=== PATIENT | male | born 1945 | race African-American/Black ===

== ENCOUNTER 2017-06-05 12:25 | Inpatient (IN) | payer MEDICARE ==
[2017-06-05 13:09] LABS: Actual Bicarbonate (HCO3a) 21.2 mEq/L (22-26); Base Excess (BEa) -1.7 mEq/L (0 (+/-) 2.5); CO2 Tension 30.5 mmHg (35.0-45.0); Calcium, Ionized 1.2 mmol/L (1.12-1.30); Hematocrit-ABG 44.6 % (42.0-52.0); Hemoglobin (Hb) 12.4 g/dL (14.0-18.0); O2 Tension (PaO2) 103.3 mmHg (80.0-100.0); pH, Arterial 7.46 (7.35-7.45)
[2017-06-05 13:10] LABS: ALV-art Gradient 8.095 (0-20); Analyzer IN Cardio ER; Puncture Site L.R.
[2017-06-05 13:32] LABS: Hemoglobin 12.2 g/dL (14.0-18.0); Mean Corpuscular HGB CONC 25.3 g/dL (32.0-36.0); Mean Corpuscular Hemoglobin 22.7 pg (27.0-31.0); Mean Corpuscular Volume 89.7 fl (80.0-94.0); Mean Platelet Volume 9.4 fL (7.4-10.4); Platelet Count 137 thou/uL (130-400); RBC Distribution Width 19.5 % (11.5-14.5); Red Blood Cell (RBC) Count 5.37 mill/uL (4.70-6.10); White Blood Cell (WBC) Count 8.8 thou/uL (4.8-10.8)
[2017-06-05 13:59] LABS: #Lymphocytes 0.6 thou/uL (1.20-3.40); #Monocytes 0.9 thou/uL (0.11-0.59); #Neutrophils 7.3 thou/uL (1.40-6.50); %Eosinophils 0.4 % (0.0-10.0); %Lymphocytes 6.9 % (21.0-51.0); %Monocytes 10.7 % (0.0-10.0); Anisocytosis SLIGHT = 6-15 cells (100X) (0-5/hpf); Crenated RBC SLIGHT = 1-5 cells (100X) (None Seen); MDiff Complete? YES; PLT Morphology Comment Appears Adequate
[2017-06-05 14:09] LABS: Bilirubin Moderate (Negative); Blood, Urine Negative (Negative); Clarity CLOUDY (Clear); Glucose, Urine (Dipstick) Negative (Negative); Leukocyte Small (Negative); Nitrite Negative (Negative); Protein, Urine (Dipstick) 30 mg/dL (Neg-Trace)
[2017-06-05 14:11] LABS: Bacteria/HPF None Seen HPF (None Seen); Pathc Cast-AUWi Flag 5.01 (0-2.49); RBC/HPF 0-3 HPF (0-3); WBC/HPF None Seen HPF (0-3)
[2017-06-05 14:16] LABS: Hyaline Casts/LPF 0-3 HYALINE CAST LPF (0-3 Hyaline)
--- NOTE | 2017-06-05 14:16 | RAD ---
PORTABLE CHEST: Date: 06/05/17 HISTORY: Sepsis. FINDINGS: Heart is mildly enlarged. A single AICD lead is noted. The vascular markings are upper normal. No foc al infiltrate or significant effusion. IMPRESSION: Mild cardiomegaly. No acute lung process identified. POS: [facility]
[2017-06-05 14:17] LABS: Manual Microscopic Reviewed? No Path Casts Seen
[2017-06-05] MEDS ORDERED: Lidocaine 1% (PF) 30 ML VIAL ONE (14:56)
[2017-06-05] MEDS ORDERED: Vancomycin HCl 1.5 GM in Sodium Chloride 0.9% 250 ML 300 ML IVPB SCH (16:00)
[2017-06-05] MEDS ORDERED: Cefepime 2 GM/10 ML SYR ONE (16:02)
[2017-06-05] MEDS ORDERED: Acetaminophen 325 MG TAB PO PRN (16:26)
[2017-06-05] MEDS ORDERED: Ondansetron HCl/PF 4 MG/2 ML Vial IVP PRN (16:26)
[2017-06-05] MEDS ORDERED: HYDROcodone/Acetaminophen 5/325 mg Tablet PO PRN (16:26)
[2017-06-05] MEDS ORDERED: Zolpidem Tartrate 5 MG TAB PO PRN (16:26)
[2017-06-05] MEDS ORDERED: Diltiazem 125 MG in Sodium Chloride 0.9% 100 ML IVPB SCH (16:30)
[2017-06-05] MEDS ORDERED: Furosemide 100 MG/10 ML VIAL ONE (16:37)
--- NOTE | 2017-06-05 16:37 | RAD ---
PORTABLE AP CHEST: Date: 06-05-17 History: Swelling in bilateral legs with burning sensation. Comparison: 06-05-17 at 0833. FINDINGS: Single lead left subclavian AICD device remains in place and unchanged in position. The cardiac silho uette remains enlarged. There has been interval placement of a right internal jugular vein central ve nous catheter tip overlying the expected location of the SVC. No pneumothorax is seen. There is no pl eural effusion. The lungs remain clear. No other interval change. IMPRESSION: 1. Interval placement of a right internal jugular vein central venous catheter without evidence of a pneumothorax. 2. Cardiomegaly. POS: [facility]
[2017-06-05 16:46] LABS: ALT (SGPT) 30 U/L (8-55); AST (SGOT) 27 U/L (5-34); Albumin 2.2 g/dL (3.4-4.8); Alkaline Phosphatase 60 U/L (40-150); Anion Gap 12 mmol/L (10-20); BUN (Urea Nitrogen) 59 mg/dL (8.4-25.7); Calc. Creatinine Clearance 0 mL/min (70-130); Calcium 8.4 mg/dL (7.8-10.44); Carbon Dioxide 23 mmol/L (23-31); Chloride 101 mmol/L (98-107); Estimated GFR-MDRD 35; Globulin 4.1 g/dL (2.4-3.5); Glucose 95 mg/dL (83-110); Protein, Total 6.3 g/dL (5.8-8.1); Sodium 133 mmol/L (136-145)
[2017-06-05 16:48] LABS: Potassium 2.9 mmol/L (3.5-5.1)
[2017-06-05] MEDS ORDERED: Potassium Chloride 20 MEQ TAB ONE (17:01)
[2017-06-05 18:48] LABS: Troponin I 0.046 ng/mL (< 0.028)
[2017-06-05 20:33] LABS: Lactic Acid 1.9 mmol/L (0.5-2.2)
[2017-06-05] MEDS ORDERED: FLU VACC TS2017-18 (>65YR) 0.5 ML SYRINGE IM ONE (21:00)
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
[2017-06-05] MEDS: Enoxaparin Sodium 120 MG/0.8 ML SYRINGE SC SCH (21:49)
[2017-06-05 22:16] LABS: Troponin I 0.044 ng/mL (< 0.028)
[2017-06-06] MEDS: Furosemide 40 MG/4 ML VIAL SLOW IVP SCH ×2 (05:33→13:20)
[2017-06-06 05:35] LABS: Anion Gap 13 mmol/L (10-20); BUN (Urea Nitrogen) 65 mg/dL (8.4-25.7); Calc. Creatinine Clearance 43 mL/min (70-130); Calcium 8.4 mg/dL (7.8-10.44); Carbon Dioxide 24 mmol/L (23-31); Chloride 102 mmol/L (98-107); Estimated GFR-MDRD 31; Glucose 92 mg/dL (83-110); Potassium 3.4 mmol/L (3.5-5.1); Sodium 136 mmol/L (136-145)
[2017-06-06 06:10] LABS: #Eosinphils 0.1 thou/uL (0.0-0.7); #Monocytes 1.1 thou/uL (0.11-0.59); #Neutrophils 6.9 thou/uL (1.40-6.50); %Basophils 0.3 % (0.0-1.0); %Eosinophils 0.7 % (0.0-10.0); %Lymphocytes 10.6 % (21.0-51.0); %Monocytes 12.3 % (0.0-10.0); %Neutrophils 76.1 % (42.0-75.0); Hemoglobin 11.1 g/dL (14.0-18.0); Mean Corpuscular HGB CONC 30.7 g/dL (32.0-36.0); Mean Corpuscular Hemoglobin 27.6 pg (27.0-31.0); Mean Corpuscular Volume 89.9 fl (80.0-94.0); Mean Platelet Volume 8.8 fL (7.4-10.4); Platelet Count 174 thou/uL (130-400); RBC Distribution Width 19.3 % (11.5-14.5); Red Blood Cell (RBC) Count 4.03 mill/uL (4.70-6.10); White Blood Cell (WBC) Count 9.1 thou/uL (4.8-10.8)
[2017-06-06] MEDS: Enoxaparin Sodium 120 MG/0.8 ML SYRINGE SC SCH ×2 (07:56→20:41)
[2017-06-06] MEDS: Aspirin 81 mg Enteric Coated Tablet PO SCH (07:56)
--- NOTE | 2017-06-06 10:21 | PDOC.PN ---
- Subjective Encounter Start Date: 06/06/17 Encounter Start Time: 10:20 Subjective: more alert, less sob - Objective Resuscitation Status: Resuscitation Status FULL:Full Resuscitation Vital Signs & Weight: Vital Signs (12 hours) Temp Pulse Resp BP Pulse Ox 06/06/17 08:01 98.5 F 94 16 97 06/06/17 04:21 98.5 F 94 16 106/66 96 06/05/17 23:51 98.9 F 87 17 111/72 100 Weight Weight 260 lb 4.8 oz I&O: 06/05/17 06/06/17 06/07/17 06:59 06:59 06:59 Intake Total 397 320 Output Total 525 Balance -128 320 Result Diagrams: 06/06/17 05:40 06/06/17 04:00 Phys Exam - Physical Examination Constitutional: NAD Neck: no JVD Respiratory: clear to auscultation bilateral Cardiovascular: no significant murmur, irregular Gastrointestinal: soft, positive bowel sounds Musculoskeletal: edema present Dx/Plan (1) Hypothermia Code(s): T68.XXXA - HYPOTHERMIA, INITIAL ENCOUNTER Status: Resolved Qualifiers: Encounter type: initial encounter Qualified Code(s): T68.XXXA - Hypothermia , initial encounter (2) Atrial fibrillation with rapid ventricular response Code(s): I48.91 - UNSPECIFIED ATRIAL FIBRILLATION Status: Acute (3) Cardiomyopathy Code(s): I42.9 - CARDIOMYOPATHY, UNSPECIFIED Status: Chronic Qualifiers: Cardiomyopathy type: unspecified Qualified Code(s): I42.9 - Cardiomyopathy , unspecified (4) HTN (hypertension) Code(s): I10 - ESSENTIAL (PRIMARY) HYPERTENSION Status: Acute Qualifiers: Hypertension type: essential hypertension Qualified Code(s): I10 - Essential (primary) hypertension - Plan transition to po cardizem -: cont iv lasix -: cont wound care -: cont lovenox * .
[2017-06-06] MEDS: Benzonatate 100 MG CAP PO PRN (20:40)
[2017-06-07] MEDS: Furosemide 40 MG/4 ML VIAL SLOW IVP SCH ×5 (06:14→17:46)
[2017-06-07] MEDS ORDERED: Spironolactone 25 MG TAB PO SCH (08:00)
[2017-06-07] MEDS: Aspirin 81 mg Enteric Coated Tablet PO SCH (08:50)
[2017-06-07] MEDS: Benzonatate 100 MG CAP PO PRN (08:50)
[2017-06-07] MEDS: Enoxaparin Sodium 120 MG/0.8 ML SYRINGE SC SCH ×2 (08:52→20:51)
--- NOTE | 2017-06-07 09:04 | PDOC.PN ---
- Subjective Encounter Start Date: 06/07/17 Encounter Start Time: 08:56 Subjective: no sob, mild cough - Objective Resuscitation Status: Resuscitation Status FULL:Full Resuscitation MAR Reviewed: Yes Vital Signs & Weight: Vital Signs (12 hours) Temp Pulse Resp BP Pulse Ox 06/07/17 07:52 97.3 F L 70 20 116/67 100 06/07/17 04:00 97.9 F 81 20 97/76 99 06/07/17 00:00 97.6 F 74 18 106/70 95 Weight Admit Weight 260 lb 4.8 oz Weight 265 lb 14.4 oz I&O: 06/06/17 06/07/17 06/08/17 06:59 06:59 06:59 Intake Total 397 2090 Output Total 525 525 Balance -128 1565 Result Diagrams: 06/06/17 05:40 06/06/17 04:00 Phys Exam - Physical Examination Constitutional: NAD Neck: no JVD Respiratory: clear to auscultation bilateral Cardiovascular: irregular Gastrointestinal: soft, non-tender, positive bowel sounds Musculoskeletal: edema present arellano on legs bandaged Dx/Plan (1) Hypothermia Code(s): T68.XXXA - HYPOTHERMIA, INITIAL ENCOUNTER Status: Resolved Qualifiers: Encounter type: initial encounter Qualified Code(s): T68.XXXA - Hypothermia , initial encounter (2) Atrial fibrillation with rapid ventricular response Code(s): I48.91 - UNSPECIFIED ATRIAL FIBRILLATION Status: Acute (3) Cardiomyopathy Code(s): I42.9 - CARDIOMYOPATHY, UNSPECIFIED Status: Chronic Qualifiers: Cardiomyopathy type: unspecified Qualified Code(s): I42.9 - Cardiomyopathy , unspecified (4) HTN (hypertension) Code(s): I10 - ESSENTIAL (PRIMARY) HYPERTENSION Status: Acute Qualifiers: Hypertension type: essential hypertension Qualified Code(s): I10 - Essential (primary) hypertension (5) CKD (chronic kidney disease) stage 3, GFR 30-59 ml/min Code(s): N18.3 - CHRONIC KIDNEY DISEASE, STAGE 3 (MODERATE) Status: Acute - Plan minimal diuresis, rate controlled -: add digoxin, spironolactone -: cardiology consult * .
[2017-06-07] MEDS ORDERED: Digoxin 0.25 MG TAB PO SCH (09:15)
[2017-06-07] MEDS: Potassium Chloride 20 MEQ TAB PO SCH (16:51)
--- NOTE | 2017-06-07 17:43 | CON ---
DATE OF CONSULTATION: 06/07/2017 REASON FOR CONSULTATION: Advanced congestive heart failure with renal failure, previous defibrillato r, chronic atrial fibrillation. HISTORY OF PRESENT ILLNESS: Mr. Chandler is a 72-year-old gentleman with severe medical problems. He w as admitted to the hospital on 06/05/2017 with increasing edema of his lower extremities, legs and ab domen and severe shortness of breath. Patient's symptoms have persisted here. PAST MEDICAL HISTORY: 1. Cardiomyopathy, the patient of Dr. Patricia in [place]. 2. Previous defibrillator. 3. Hypertension. MEDICATIONS: 1. Aspirin. 2. Hydralazine 25 mg twice a day. 3. Metoprolol 25 mg twice a day. ALLERGIES: PENICILLIN, MORPHINE, DARVON, STEROIDS, AND CODEINE. FAMILY HISTORY: Mother with coronary artery disease, brother with coronary artery disease. SURGICAL HISTORY: The patient states he had a heart catheterization, normal coronary arteries. He h ad a stent in his left leg for peripheral vascular disease according to the chart. SOCIAL HISTORY: Quit smoking 10 years ago. Quit alcohol 3 years ago. CODE STATUS: FULL. REVIEW OF SYSTEMS: Constitutional: No headaches, dizziness or fainting. Vision: No changes. Hear ing: No changes. Pulmonary: Severe cough, severe difficulty breathing. Cardiac: No chest pain an d severe trouble breathing. Gastrointestinal: No nausea, vomiting, or diarrhea. Skin: No rashes. Neurologic: No unilateral weakness or numbness. Psychiatric: No unusual depression or anxiety. H ematologic: No unusual bruising. Genitourinary: No burning with urination. He does have some problem with arellano as outlined in the chart. PHYSICAL EXAMINATION: GENERAL: It is a very pleasant ill-appearing gentleman, he is 5 feet 9 inches tall, 265 pounds, BMI is 39. He is coughing severely. He is short of breath. PHYSICAL EXAMINATION: VITAL SIGNS: His blood pressure 114/76, pulse 70, it is irregular. He has occasional ventricular pa cing and some intrinsic beat as well. NECK: Neck veins are normal. Carotid normal upstrokes. LUNGS: She has severe expiratory wheezing and diffuse rales. CARDIOVASCULAR: Irregular. I do not hear a murmur, rub or gallop. ABDOMEN: Obese, nontender, no hepatosplenomegaly. EXTREMITIES: Severe peripheral edema throughout his abdomen and lower back and throughout his legs. PERTINENT LABORATORY AND X-RAY FINDINGS: Creatinine is 2.52, potassium was 3.4. BNP 673. Troponin 0.044. EKG reveals atrial fibrillation with occasional ventricular paced rhythm. Chest x-ray shows severe cardiomegaly with pulmonary vascular congestion. ASSESSMENT: 1. Congestive heart failure, this appears to be systolic, acute on chronic. 2. Cardiomyopathy according to patient's report. 3. 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 4. Severe cough, probably related to heart failure. 5. Atrial fibrillation, likely chronic. PLAN: 1. Agree with Lovenox. 2. Stop diltiazem. 3. Judicious use of digoxin, we will wait and see what his heart rate is tomorrow before giving furt her digoxin. 4. Hypokalemia. Replete potassium. 5. Try to obtain her outside records. 6. Echocardiogram shows ejection fraction 15-20%. Long-term prognosis is poor.
--- NOTE | 2017-06-07 19:46 | ULT ---
ULTRASOUND BILATERAL RENAL: History: Elevated creatinine. Comparison: None. FINDINGS: Right kidney measures 9 x 5.9 x 5.3 cm and the left kidney measures 10.6 x 5.2 x 5.1 cm. There is a s uperior pole left renal cyst measuring up to 1.8 cm. No hydronephrosis. The urinary bladder is not di stended. IMPRESSION: No evidence for obstructive uropathy. POS: [facility]
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
[2017-06-07] MEDS ORDERED: Furosemide 100 MG/10 ML VIAL SLOW IVP SCH (23:00)
[2017-06-08] MEDS: Furosemide 100 MG/10 ML VIAL SLOW IVP SCH ×2 (05:32→13:59)
[2017-06-08 06:02] LABS: Hemoglobin 10.9 g/dL (14.0-18.0); Platelet Count 163 thou/uL (130-400)
[2017-06-08 06:09] LABS: INR-International Normal Ratio 1.7
[2017-06-08 06:28] LABS: ALT (SGPT) 25 U/L (8-55); AST (SGOT) 25 U/L (5-34); Albumin 2.3 g/dL (3.4-4.8); Alkaline Phosphatase 72 U/L (40-150); Anion Gap 13 mmol/L (10-20); BUN (Urea Nitrogen) 71 mg/dL (8.4-25.7); Bilirubin, Direct 2.6 mg/dL (0.1-0.3); Bilirubin, Total 3.3 mg/dL (0.2-1.2); Calc. Creatinine Clearance 40 mL/min (70-130); Calcium 8.3 mg/dL (7.8-10.44); Carbon Dioxide 25 mmol/L (23-31); Chloride 100 mmol/L (98-107); Estimated GFR-MDRD 27; Glucose 131 mg/dL (83-110); Protein, Total 6.7 g/dL (5.8-8.1); Sodium 134 mmol/L (136-145)
[2017-06-08] MEDS: Digoxin 0.125 MG TAB PO SCH (09:03)
[2017-06-08] MEDS: Aspirin 81 mg Enteric Coated Tablet PO SCH (09:03)
[2017-06-08] MEDS: Enoxaparin Sodium 120 MG/0.8 ML SYRINGE SC SCH ×2 (09:03→22:30)
[2017-06-08] MEDS: Potassium Chloride 20 MEQ TAB PO SCH ×2 (09:03→16:36)
[2017-06-08] MEDS ORDERED: Metolazone 5 MG TAB PO SCH (09:30)
--- NOTE | 2017-06-08 09:45 | PRG ---
DATE OF SERVICE: 06/08/2017 SUBJECTIVE: Mr. Chandler is feeling better today. He is not having as much trouble breathing. OBJECTIVE: VITAL SIGNS: His blood pressure 120/74, pulse is in the 60s, its intrinsic rhythm as opposed to pace d rhythm today. LUNGS: Clear. CARDIAC: Irregularly irregular. ABDOMEN: Obese, nontender with very severe edema. EXTREMITIES: Severe edema. ASSESSMENT: 1. Congestive heart failure, systolic, chronic, still extremely volume overloaded. 2. Chronic atrial fibrillation. 3. Renal failure, stage 4 now. PLAN: 1. We will avoid diltiazem for rate control. 2. Continue enoxaparin. 3. Continue furosemide. 4. One dose of metolazone. 5. Continue to monitor renal function, still extremely volume overloaded. 6. Nonsustained ventricular tachycardia, has a defibrillator in place.
--- NOTE | 2017-06-08 12:30 | PDOC.PN ---
- Subjective Encounter Start Date: 06/08/17 Encounter Start Time: 11:45 Feels better - Objective Resuscitation Status: Resuscitation Status FULL:Full Resuscitation Vital Signs & Weight: Vital Signs (12 hours) Temp Pulse Resp BP Pulse Ox 06/08/17 11:02 97.6 F 63 20 132/70 95 06/08/17 09:03 64 06/08/17 07:49 97.8 F 64 20 98 06/08/17 07:11 97.8 F 64 20 120/74 100 06/08/17 04:00 98.1 F 62 20 117/67 98 Weight Admit Weight 260 lb 4.8 oz Weight 267 lb 14.4 oz I&O: 06/07/17 06/08/17 06/09/17 06:59 06:59 06:59 Intake Total 2090 1328 Output Total 525 1175 Balance 1565 153 Result Diagrams: 06/08/17 05:40 06/08/17 05:40 Phys Exam - Physical Examination HEENT: moist MMs Neck: no JVD Respiratory: wheezing present Cardiovascular: irregular Gastrointestinal: soft Musculoskeletal: edema present (+ulcer in legs.) Neurological: moves all 4 limbs Psychiatric: A&O x 3 Dx/Plan (1) Atrial fibrillation with rapid ventricular response Code(s): I48.91 - UNSPECIFIED ATRIAL FIBRILLATION Status: Acute Plan: as per rib matcher and fitter (2) CKD (chronic kidney disease) stage 3, GFR 30-59 ml/min Code(s): N18.3 - CHRONIC KIDNEY DISEASE, STAGE 3 (MODERATE) Status: Acute Plan: serum creat increasing. Consult nephrology. (3) HTN (hypertension) Code(s): I10 - ESSENTIAL (PRIMARY) HYPERTENSION Status: Acute Qualifiers: Hypertension type: essential hypertension Qualified Code(s): I10 - Essential (primary) hypertension Comment: BP satisfactory.. (4) Cardiomyopathy Code(s): I42.9 - CARDIOMYOPATHY, UNSPECIFIED Status: Chronic Qualifiers: Cardiomyopathy type: unspecified Qualified Code(s): I42.9 - Cardiomyopathy , unspecified Plan: f/u with cardilogy.. (5) Hypothermia Code(s): T68.XXXA - HYPOTHERMIA, INITIAL ENCOUNTER Status: Resolved Qualifiers: Encounter type: initial encounter Qualified Code(s): T68.XXXA - Hypothermia , initial encounter Comment: REsolved. (6) Physical deconditioning Code(s): R53.81 - OTHER MALAISE Status: Acute Plan: PT to see.. - Plan * .
[2017-06-08] MEDS: Guaifenesin DM 100-10/5 ML UDCUP PO PRN ×2 (13:51→22:36)
--- NOTE | 2017-06-08 20:50 | PRG ---
DATE OF SERVICE: 06/08/2017 SERVICE: Pulmonary Medicine. INTERVAL HISTORY: The patient is doing great from a respiratory standpoint. He actually feels like he has increasing energy. His outlook on how things are going is improving as well. He denies any current fevers, chills, nausea, or vomiting. He is yet to get out of bed. PHYSICAL EXAMINATION: VITAL SIGNS: Afebrile, pulse 76, blood pressure 137/81, respirations 18, saturation 97% on room air. GENERAL: The patient is awake and alert, in no apparent distress. LUNGS: Excellent air entry. Dependent crackles are minimal. The rhonchi have improved. HEART: Normal rate, regular. ABDOMEN: Soft, nontender, nondistended. Bowel sounds positive. MUSCULOSKELETAL: No cyanosis or clubbing. There is 3+ pitting in the bilateral lower extremities, but we are starting to see a little bit of wrinkles showing upon the toes. LABORATORY DATA: Hemoglobin 10.9 and roughly stable. Creatinine 2.83 and gently trending upward, BUN 71, sodium 134, total bilirubin 3.3 and down trending. Liver function studies are otherwise unremarkable. TSH falls within the normal limits. Urinalysis is unremarkable. One blood culture is negative to date. IMAGING: Renal ultrasound demonstrates no evidence for obstructive uropathy. ASSESSMENT: 1. Acute on chronic systolic heart failure. 2. Acute kidney injury on chronic kidney disease, suspected. 3. Atrial fibrillation. 4. Anasarca. 5. Multiple skin lesions, exacerbated and possibly caused by his edematous state. PLAN: Underlying inflammatory skin condition has not been ruled out. These lesions do not represent arellano created from a local space heater or bleach from cleaning wounds as he cannot reach the most distal lesions. We will continue to gently diurese him through time to get him closer to euvolemia. Pulmonary Critical Care will continue to follow while he remains in this location. We will focus on mobilizing him tomorrow. LUCAS
[2017-06-08] MEDS ORDERED: Furosemide 40 MG/4 ML VIAL SLOW IVP SCH (22:00)
--- NOTE | 2017-06-09 02:04 | CON ---
DATE OF CONSULTATION: 06/08/2017 CONSULTING PHYSICIAN: Shelbie Tian MD REASON FOR CONSULTATION: Acute kidney injury. REASON FOR ADMISSION: Swelling. HISTORY OF PRESENT ILLNESS: This is a 72-year-old male with a history of cardiomyopathy, hypertensio n, who came to the hospital with swelling, shortness of breath, and is being evaluated for cardiorena l syndrome. He was also found to have elevated creatinine and Nephrology was consulted. The patient denies any chest pain. Has shortness of breath. No fever or chills. No skin rash. No nausea, vom iting, or indigestion. PAST MEDICAL HISTORY: Positive for cardiomyopathy, hypertension. PAST SURGICAL HISTORY: Prostatectomy, peripheral vascular stent. HOME MEDICATIONS: Aspirin, hydralazine, metoprolol. ALLERGIES: PENICILLIN, MORPHINE, DIOVAN, STEROIDS, CODEINE. FAMILY HISTORY: Positive for heart disease. SOCIAL HISTORY: He quit smoking 10 years back and was drinking alcohol, quit drinking 3 years back. No illicit drug abuse. REVIEW OF SYSTEMS: The following complete review of systems was negative, unless otherwise mentioned in the HPI or below: Constitutional: Weight loss or gain, ability to conduct usual activities. Skin: Rash, itching. Eyes: Double vision, pain. ENT/Mouth: Nose bleeding, neck stiffness, pain, tenderness. Cardiovascular: Palpitations, dyspnea on exertion, orthopnea. Respiratory: Shortness of breath, wheezing, cough, hemoptysis, fever or night sweats. Gastrointestinal: Poor appetite, abdominal pain, heartburn, nausea, vomiting, constipation, or diarr hea. Genitourinary: Urgency, frequency, dysuria, nocturia. Musculoskeletal: Pain, swelling. Neurologic/Psychiatric: Anxiety, depression. Allergy/Immunologic: Skin rash, bleeding tendency. PHYSICAL EXAMINATION: GENERAL: This is a well-built white male, in no apparent distress. VITAL SIGNS: Temperature 97.9, pulse 76, respiratory rate 17, blood pressure 137/81. HEENT: Atraumatic, normocephalic. Oral mucosa is moist. NECK: Supple. CARDIOVASCULAR: S1, S2. Rate and rhythm regular. RESPIRATORY: Clear. GENITOURINARY: Abdomen is soft. MUSCULOSKELETAL: 2+ edema. DERMATOLOGIC: No skin lesions. NEUROLOGIC: Alert, awake. PSYCHIATRIC: Mood and affect are normal. LABORATORY: Potassium is 4.0, BUN is 71, creatinine is 2.8. ASSESSMENT AND PLAN: 1. Acute kidney injury, most likely from diuresis. We will monitor. Continue on dialysis as tolera ellyn. 2. Hypokalemia, replace and monitor. 3. Alkalosis. 4. Anemia. 5. Edema with fluid overload. 6. Hypertension, stable. 7. Continue on Lasix. Monitor renal function, replace electrolytes. Thank you for the consultation. We will follow closely.
[2017-06-09] MEDS: Furosemide 100 MG/10 ML VIAL SLOW IVP SCH ×2 (05:14→14:26)
[2017-06-09 05:44] LABS: Anion Gap 10 mmol/L (10-20); BUN (Urea Nitrogen) 67 mg/dL (8.4-25.7); Calc. Creatinine Clearance 47 mL/min (70-130); Calcium 8.5 mg/dL (7.8-10.44); Carbon Dioxide 29 mmol/L (23-31); Chloride 98 mmol/L (98-107); Estimated GFR-MDRD 32; Glucose 113 mg/dL (83-110); Potassium 4.3 mmol/L (3.5-5.1); Sodium 133 mmol/L (136-145)
[2017-06-09] MEDS: Potassium Chloride 20 MEQ TAB PO SCH ×2 (08:56→16:44)
[2017-06-09] MEDS: Aspirin 81 mg Enteric Coated Tablet PO SCH (08:56)
[2017-06-09] MEDS: Digoxin 0.125 MG TAB PO SCH (08:56)
[2017-06-09] MEDS: Enoxaparin Sodium 120 MG/0.8 ML SYRINGE SC SCH ×2 (08:57→20:41)
--- NOTE | 2017-06-09 12:27 | PRG ---
DATE OF SERVICE: 06/09/2017 SUBJECTIVE: Mr. Chandler has no complaints. His wounds are all bandaged with wound care bandages. OBJECTIVE: VITAL SIGNS: He is afebrile, heart rate is 84, respiratory rate is 18, oximetry is 97, blood pressur e 147/84. LUNGS: Clear. HEART: Regular rhythm. ABDOMEN: Soft. LABORATORY DATA: Hemoglobin is stable at 10.9 yesterday. Sodium 133, potassium 4.3, chloride 98, bi carbonate 29, BUN 67, creatinine 2.43 down from 2.83. IMPRESSION: 1. Acute on chronic systolic heart failure. 2. Chronic kidney disease with improved renal function. 3. Volume overload. 4. Morbid obesity. 5. Multiple stasis ulcers. He appears in my opinion to be stable to consider moving out of the Intermediate Care Unit.
--- NOTE | 2017-06-09 12:36 | PDOC.PN ---
- Subjective Encounter Start Date: 06/09/17 Encounter Start Time: 11:50 No specific complaint. - Objective Resuscitation Status: Resuscitation Status FULL:Full Resuscitation Vital Signs & Weight: Vital Signs (12 hours) Temp Pulse Resp BP Pulse Ox 06/09/17 10:21 99 06/09/17 08:56 84 06/09/17 07:53 98.1 F 84 18 97 06/09/17 07:05 98.0 F 81 20 147/84 H 100 06/09/17 04:00 98.1 F 84 18 123/73 99 Weight Admit Weight 260 lb 4.8 oz Weight 259 lb 14.4 oz I&O: 06/08/17 06/09/17 06/10/17 06:59 06:59 06:59 Intake Total 1328 790 Output Total 1170 6166 Balance 153 -8661 Result Diagrams: 06/08/17 05:40 06/09/17 05:15 Phys Exam - Physical Examination HEENT: sclera anicteric Neck: no JVD Respiratory: clear to auscultation bilateral Cardiovascular: RRR Gastrointestinal: non-tender Musculoskeletal: no edema (legs ulcers..) Neurological: moves all 4 limbs Psychiatric: A&O x 3 Dx/Plan (1) Atrial fibrillation with rapid ventricular response Code(s): I48.91 - UNSPECIFIED ATRIAL FIBRILLATION Status: Acute Plan: On lovenox. Seen by cardiology. (2) CKD (chronic kidney disease) stage 3, GFR 30-59 ml/min Code(s): N18.3 - CHRONIC KIDNEY DISEASE, STAGE 3 (MODERATE) Status: Acute Plan: Seen by Nephrology. Comment: NAHUN + CKD improving. (3) HTN (hypertension) Code(s): I10 - ESSENTIAL (PRIMARY) HYPERTENSION Status: Acute Qualifiers: Hypertension type: essential hypertension Qualified Code(s): I10 - Essential (primary) hypertension Comment: BP satisfactory.. (4) Cardiomyopathy Code(s): I42.9 - CARDIOMYOPATHY, UNSPECIFIED Status: Chronic Qualifiers: Cardiomyopathy type: unspecified Qualified Code(s): I42.9 - Cardiomyopathy , unspecified Comment: Has pacemaker defibrillator in place. (5) Hypothermia Code(s): T68.XXXA - HYPOTHERMIA, INITIAL ENCOUNTER Status: Resolved Qualifiers: Encounter type: initial encounter Qualified Code(s): T68.XXXA - Hypothermia , initial encounter Comment: REsolved. (6) Physical deconditioning Code(s): R53.81 - OTHER MALAISE Status: Acute - Plan -: For Rehab evaluation.. * .
--- NOTE | 2017-06-09 13:00 | PRG ---
DATE OF SERVICE: 06/09/2017 SUBJECTIVE: Patient was seen and examined at bedside and overnight events noted. Patient denies any shortness of breath or chest pain or palpitation. No history of nausea or vomiting or diarrhea or fe sushil or chills or cramps. OBJECTIVE: GENERAL: This is a well-built male, in no apparent distress. VITAL SIGNS: Temperature 98.1, pulse 84, respiratory 20, blood pressure 147/84. HEENT: Atraumatic, normocephalic. Oral mucosa is moist. NECK: Supple. CARDIOVASCULAR: S1, S2 heard. Rate and rhythm regular. RESPIRATORY: Clear to auscultation. GASTROINTESTINAL: Abdomen is soft. MUSCULOSKELETAL: No tenderness, no edema. DERMATOLOGIC: No skin rash. NEUROLOGIC: Alert and awake and oriented x3. No focal neurologic deficits. Moving all the extremit ies. PSYCHIATRIC: Mood and affect normal. LABORATORY DATA: Potassium is 4.3, BUN is 67 and creatinine was 2.4. ASSESSMENT AND PLAN: 1. Acute kidney injury. Renal function is getting better with diuresis. He made almost negative 5 liters of fluid balance yesterday and we will follow. 2. Edema, getting better. 3. Anemia. 4. Alkalosis. 5. Hypokalemia. Replace and monitor. 6. Hypertension, stable. Continue diuresis. We will monitor renal function.
[2017-06-09] MEDS: Guaifenesin DM 100-10/5 ML UDCUP PO PRN (15:46)
[2017-06-10] MEDS ORDERED: Witch Hazel-Glycerin 1 EACH JAR TOP PRN (01:59)
[2017-06-10 05:20] LABS: #Eosinphils 0.2 thou/uL (0.0-0.7); #Lymphocytes 1.1 thou/uL (1.20-3.40); #Monocytes 0.9 thou/uL (0.11-0.59); #Neutrophils 10.9 thou/uL (1.40-6.50); %Basophils 0.3 % (0.0-1.0); %Eosinophils 1.8 % (0.0-10.0); %Lymphocytes 8.4 % (21.0-51.0); %Monocytes 6.9 % (0.0-10.0); %Neutrophils 82.7 % (42.0-75.0); Hemoglobin 10.5 g/dL (14.0-18.0); Mean Corpuscular HGB CONC 30.1 g/dL (32.0-36.0); Mean Corpuscular Volume 89.9 fl (80.0-94.0); Mean Platelet Volume 8.7 fL (7.4-10.4); Platelet Count 179 thou/uL (130-400); RBC Distribution Width 18.9 % (11.5-14.5); Red Blood Cell (RBC) Count 3.87 mill/uL (4.70-6.10); White Blood Cell (WBC) Count 13.1 thou/uL (4.8-10.8)
[2017-06-10 05:30] LABS: Anion Gap 11 mmol/L (10-20); BUN (Urea Nitrogen) 60 mg/dL (8.4-25.7); Calc. Creatinine Clearance 53 mL/min (70-130); Calcium 8.9 mg/dL (7.8-10.44); Carbon Dioxide 32 mmol/L (23-31); Chloride 97 mmol/L (98-107); Estimated GFR-MDRD 38; Glucose 95 mg/dL (83-110); Potassium 4.9 mmol/L (3.5-5.1); Sodium 135 mmol/L (136-145)
[2017-06-10] MEDS: Furosemide 100 MG/10 ML VIAL SLOW IVP SCH ×2 (06:47→15:56)
[2017-06-10] MEDS: Potassium Chloride 20 MEQ TAB PO SCH ×2 (09:47→16:00)
[2017-06-10] MEDS: Aspirin 81 mg Enteric Coated Tablet PO SCH (09:48)
[2017-06-10] MEDS: Digoxin 0.125 MG TAB PO SCH (09:48)
[2017-06-10] MEDS: Citrucel 500 MG TAB PO SCH ×2 (09:49→20:52)
[2017-06-10] MEDS: Guaifenesin DM 100-10/5 ML UDCUP PO PRN (09:50)
[2017-06-10] MEDS: Enoxaparin Sodium 120 MG/0.8 ML SYRINGE SC SCH ×2 (09:50→20:52)
[2017-06-10] MEDS: Polyethylene Glycol 3350 17 GM Packet PO SCH (09:50)
--- NOTE | 2017-06-10 12:27 | PDOC.PN ---
- Subjective Encounter Start Date: 06/10/17 Encounter Start Time: 12:10 Subjective: No new complaint.. -: Feels better. - Objective Resuscitation Status: Resuscitation Status FULL:Full Resuscitation Vital Signs & Weight: Vital Signs (12 hours) Temp Pulse Resp BP Pulse Ox 06/10/17 09:48 85 06/10/17 08:00 98.5 F 95 20 98 06/10/17 07:00 98.5 F 95 20 131/78 98 06/10/17 04:00 98.7 F 89 18 127/79 98 06/10/17 01:04 98.4 F 86 20 144/81 H 94 L Weight Admit Weight 260 lb 4.8 oz Weight 254 lb 11.2 oz I&O: 06/09/17 06/10/17 06/11/17 06:59 06:59 06:59 Intake Total 790 1100 Output Total 6125 8425 Balance -5335 -7325 Result Diagrams: 06/10/17 04:50 06/10/17 04:50 Phys Exam - Physical Examination HEENT: sclera anicteric Neck: no JVD Respiratory: clear to auscultation bilateral Cardiovascular: RRR Gastrointestinal: soft Musculoskeletal: edema present (+legs ulcers.) Neurological: moves all 4 limbs Psychiatric: A&O x 3 Dx/Plan (1) Atrial fibrillation with rapid ventricular response Code(s): I48.91 - UNSPECIFIED ATRIAL FIBRILLATION Status: Chronic (2) CKD (chronic kidney disease) stage 3, GFR 30-59 ml/min Code(s): N18.3 - CHRONIC KIDNEY DISEASE, STAGE 3 (MODERATE) Status: Acute Comment: NAHUN + CKD improving. (3) HTN (hypertension) Code(s): I10 - ESSENTIAL (PRIMARY) HYPERTENSION Status: Acute Qualifiers: Hypertension type: essential hypertension Qualified Code(s): I10 - Essential (primary) hypertension Comment: BP satisfactory.. (4) Cardiomyopathy Code(s): I42.9 - CARDIOMYOPATHY, UNSPECIFIED Status: Chronic Qualifiers: Cardiomyopathy type: unspecified Qualified Code(s): I42.9 - Cardiomyopathy , unspecified Comment: Has pacemaker defibrillator in place. (5) Hypothermia Code(s): T68.XXXA - HYPOTHERMIA, INITIAL ENCOUNTER Status: Resolved Qualifiers: Encounter type: initial encounter Qualified Code(s): T68.XXXA - Hypothermia , initial encounter Comment: REsolved. (6) Physical deconditioning Code(s): R53.81 - OTHER MALAISE Status: Acute - Plan -: Stable. -: To go to rehab ... * .
--- NOTE | 2017-06-10 13:54 | PRG ---
DATE OF SERVICE: 06/10/2017 SUBJECTIVE: Patient was seen and examined at bedside and overnight events noted. Patient denies any shortness of breath or chest pain or palpitation. No history of nausea or vomiting or diarrhea or f ever or chills or cramps. OBJECTIVE: GENERAL: This is a well-built male in no apparent distress. VITAL SIGNS: Temperature 98.5, pulse 75, respiratory rate 18, blood pressure 113/70. HEENT: Atraumatic, normocephalic. Oral mucosa is moist Neck: Supple Cardiovascular: S1, S2 heard. Rate and rhythm regular. Respiratory: Clear to auscultation. Gastrointestinal: Abdomen is soft. Musculoskeletal: No tenderness. No edema. Dermatologic: No skin rash. Neurologic: Alert and awake and oriented x3. No focal neurologic deficits. Moving all the extremit ies. Psychiatric: Mood and affect normal LABORATORY DATA: Potassium is 4.9, BUN 60 and creatinine is 2.08. ASSESSMENT AND PLAN: 1. Acute kidney injury, on chronic kidney disease. Renal function continues to improve with good di uresis. Continue on diuretics and monitor renal function and electrolytes closely. Potassium level is stable for now. 2. Edema, getting better. 3. Anemia. 4. Alkalosis. 5. Hypokalemia, replaced. 6. Hypertension, stable. PLAN: Monitor electrolytes and renal function closely. Continue on diuretics. We will follow.
--- NOTE | 2017-06-10 20:00 | PRG ---
DATE OF SERVICE: 06/10/2017 SUBJECTIVE: Mr. Chandler has no new complaints. He denies shortness of breath. OBJECTIVE: VITAL SIGNS: His vital signs have been stable. He is afebrile, heart rates in the 70s, blood pressu re 141/79. This afternoon, respiratory rate is 18, oximetry is 97. LUNGS: Unchanged. HEART: Unchanged. ABDOMEN: Unchanged. IMPRESSION: 1. Atrial fibrillation. 2. Chronic kidney disease. 3. Hypertension. 4. Cardiomyopathy. 5. Chronic stasis ulcers. 6. Volume overload. Intake and output is negative 7325. PLAN: Continue supportive care with diuresis. He will be transferred out of the IMU to telemetry un it when a bed becomes available.
[2017-06-11 05:14] LABS: BUN (Urea Nitrogen) 55 mg/dL (8.4-25.7); Calc. Creatinine Clearance 51 mL/min (70-130); Calcium 9.4 mg/dL (7.8-10.44); Estimated GFR-MDRD 38; Glucose 86 mg/dL (83-110)
[2017-06-11 05:23] LABS: Anion Gap 14 mmol/L (10-20); Carbon Dioxide 37 mmol/L (23-31); Chloride 92 mmol/L (98-107); Sodium 137 mmol/L (136-145)
[2017-06-11] MEDS: Furosemide 100 MG/10 ML VIAL SLOW IVP SCH (06:23)
[2017-06-11] MEDS: Polyethylene Glycol 3350 17 GM Packet PO SCH (08:26)
[2017-06-11] MEDS: Aspirin 81 mg Enteric Coated Tablet PO SCH (08:26)
[2017-06-11] MEDS: Digoxin 0.125 MG TAB PO SCH (08:26)
[2017-06-11] MEDS: Citrucel 500 MG TAB PO SCH ×2 (08:26→21:42)
[2017-06-11] MEDS: Potassium Chloride 20 MEQ TAB PO SCH (08:30)
[2017-06-11] MEDS ORDERED: Metolazone 5 MG TAB PO SCH (08:30)
--- NOTE | 2017-06-11 08:52 | PRG ---
DATE OF SERVICE: 06/11/2017 Mr. Chandler is feeling better, just feels somewhat weak. He is coughing up some blood on occasion. PHYSICAL EXAMINATION: VITAL SIGNS: Blood pressure is 130/78, pulse 90-110 and irregular. LUNGS: Clear. CARDIAC: Irregular, irregular. ASSESSMENT: 1. Congestive heart failure, improved, was still -5 liters yesterday. He is 17 liters down the last 3 days, platelet count down from 265 to 224. 2. Hyperkalemia. 3. Renal failure, stable. Creatinine is 2.1. It is actually improved. PLAN: 1. Stop potassium. 2. Continue to watch renal function. Will probably need to reduce the dose of the furosemide. 3. Try to mobilize the patient further. 4. We will skip a dose of enoxaparin in view of the hemoptysis.
[2017-06-11 11:26] LABS: Potassium 6.1 mmol/L (3.5-5.1)
[2017-06-11] MEDS ORDERED: Sodium Chloride 0.9% 1,000 ML IV SCH ×2 (12:15→20:00)
--- NOTE | 2017-06-11 12:33 | PRG ---
DATE OF SERVICE: 06/11/2017 SERVICE: Pulmonary Medicine. INTERVAL HISTORY: The patient is doing great from a respiratory standpoint. He is breathing comfortably. His lower extremity swelling has vastly improved. He is no longer weeping serous fluid from these lesions in his dependent legs. PHYSICAL EXAMINATION: VITAL SIGNS: Afebrile, pulse 82, blood pressure 129/77, respirations 20, saturation 96% on room air. GENERAL: Patient is awake, alert, no apparent distress. LUNGS: Excellent air entry. There is no prolonged expiratory phase. Dependent crackles have resolved. HEART: Normal rate, regular. ABDOMEN: Soft, nontender, nondistended. Bowel sounds positive. MUSCULOSKELETAL: No cyanosis or clubbing. There is trace to 1+ pitting in the bilateral lower extremities, which is dramatically improved. GENITOURINARY: Vazquez catheter in place. NEUROLOGIC: Grossly nonfocal. LABORATORY DATA: WBC 13.1, hemoglobin 10.5, platelets 179,000. INR 1.7. PH 7.46, pCO2 of 30, pO2 103. Creatinine 2.10, which is roughly stable. Potassium is up trending to 6.0. Basic metabolic profile is otherwise unremarkable. Bicarbonate is down to 37. Blood cultures x1 is negative. ASSESSMENT: 1. Acute on chronic systolic heart failure, resolved. 2. Acute kidney injury on chronic kidney disease. 3. Anasarca, resolved. 4. Atrial fibrillation. 5. Multiple skin lesions. PLAN: I am going to back way off on our diuretics at this time, as he is intravascularly depleted. I will give him 1 liter of fluid. Of note, we have gotten him negative over 20 liters in the past 4 days. His potassium will be discontinued. Pulmonary Critical Care will continue to follow while the patient remains in this location. If his potassium is stable tomorrow morning, he can transition to the floor. We will continue getting him to work with physical therapy. LUCAS
--- NOTE | 2017-06-11 12:37 | PRG ---
DATE OF SERVICE: 06/11/2017 SUBJECTIVE: This is a 72-year-old male being seen for acute kidney injury. The patient denies any n ausea, vomiting, or chest pain. PHYSICAL EXAMINATION: GENERAL: Patient is awake and alert. VITAL SIGNS: Afebrile, pulse 90, breathing at 16, blood pressure 138/78. GENERAL APPEARANCE AND MENTAL STATUS: Fair. HEAD/NECK: Normocephalic. Atraumatic. EYES: EOMI. No deformity. EARS: Clear. No ulcers. NOSE: Intact. No lesions. MOUTH: Clear. No discharge. THROAT: Clear. No exudate. LUNGS: Clear. No crackles. CARDIAC: S1, S2. No rub. ABDOMEN: Benign. BS+. GENITALIA/RECTUM: Vazquez absent. BACK/EXTREMITIES: Edema 0+ Ulcer-. NEUROLOGICAL: Alert and motor intact. SKIN: Rash- Bruise-. Wound noted. LYMPHATICS: Edema- Ulcer-. LABORATORY DATA: Show potassium is 6.1, carbon dioxide 37. ASSESSMENT AND RECOMMENDATIONS: 1. Acute kidney injury with chronic kidney disease and hyperkalemia. Continue hydration. 2. Hyperkalemia. We would recommend holding of digoxin today and changing the Lovenox to another ag ent. 3. Metabolic alkalosis because of diuresis. I would recommend holding Lasix and starting gentle hyd ration. We will recheck potassium again at 6:00 p.m. today and consider replacement therapy if the p otassium does not improve.
[2017-06-11] MEDS ORDERED: Furosemide 40 MG/4 ML VIAL SLOW IVP SCH (14:00)
[2017-06-11] MEDS: Carvedilol 3.125 MG TAB PO SCH (16:34)
[2017-06-11 17:58] LABS: Anion Gap 17 mmol/L (10-20); BUN (Urea Nitrogen) 51 mg/dL (8.4-25.7); Calc. Creatinine Clearance 45 mL/min (70-130); Calcium 9.2 mg/dL (7.8-10.44); Carbon Dioxide 33 mmol/L (23-31); Chloride 95 mmol/L (98-107); Estimated GFR-MDRD 38; Glucose 82 mg/dL (83-110); Sodium 138 mmol/L (136-145)
[2017-06-11 18:04] LABS: Potassium 6.6 mmol/L (3.5-5.1)
[2017-06-11 18:52] LABS: Actual Bicarbonate (HCO3a) 36.2 mEq/L (22-26); Base Excess (BEa) 12.7 mEq/L (0 (+/-) 2.5); CO2 Tension 42.1 mmHg (35.0-45.0); Calcium, Ionized 1.2 mmol/L (1.12-1.30); Hematocrit-ABG 36.5 % (42.0-52.0); Hemoglobin (Hb) 10.7 g/dL (14.0-18.0); O2 Tension (PaO2) 86.6 mmHg (80.0-100.0)
[2017-06-11 18:54] LABS: Puncture Site L RADIAL; pH, Arterial 7.55 (7.35-7.45)
[2017-06-11 18:55] LABS: ALV-art Gradient 9.035 (0-20)
--- NOTE | 2017-06-11 19:10 | PDOC.PN ---
- Subjective Encounter Start Date: 06/11/17 Encounter Start Time: 13:45 Patient seen and examined. No new complaints. No overnight events - Objective Resuscitation Status: Resuscitation Status FULL:Full Resuscitation MAR Reviewed: Yes Vital Signs & Weight: Vital Signs (12 hours) Temp Pulse Pulse Resp BP BP Pulse Ox 06/11/17 15:01 97.9 F 97 16 126/78 96 06/11/17 11:05 82 129/77 06/11/17 11:04 98.0 F 82 20 129/77 96 06/11/17 08:26 90 06/11/17 08:00 97.6 F 90 20 98 Pulse Ox 06/11/17 15:01 06/11/17 11:05 96 06/11/17 11:04 06/11/17 08:26 06/11/17 08:00 Weight Admit Weight 260 lb 4.8 oz Weight 222 lb 14.4 oz I&O: 06/10/17 06/11/17 06/12/17 06:59 06:59 06:59 Intake Total 1100 3448 Output Total 8425 8515 3750 [facility] -7325 -5067 -3750 Result Diagrams: 06/10/17 04:50 06/11/17 17:34 EKG Reviewed by me: Yes (Tele Afib) Phys Exam - Physical Examination Constitutional: NAD Respiratory: no wheezing, no rhonchi Cardiovascular: RRR, no rub Gastrointestinal: soft, non-tender, positive bowel sounds Neurological: moves all 4 limbs Dx/Plan - Plan DVT proph w/lovenox, DVT proph w/SCDs IMPRESSION: 1. Acute on chronic systolic heart failure exacerbation - improving with diuretics 2. Hyperkalemia 3. NAHUN on CKD 3 4. Chronic venous stasis 5. Afib with RVR - rate controlled - on Anticoag. 6. HTN 7. Hypokalemia - resolved PLAN: * Nephrology/Cardio/Critical care following * s/p Kayexalate * Repeat labs later today and in AM * cont to monitor * Add Lactulose * Cont to monitor Review of Systems - Review of Systems Respiratory: negative: Cough, Dry, Shortness of Breath, Hemoptysis, SOB with Excertion, Pleuritic Pain, Sputum, Wheezing Cardiovascular: negative: Chest Pain, Palpitations, Orthopnea, Paroxysmal Noc. Dyspnea, Edema, Light Headedness - Medications/Allergies Allergies/Adverse Reactions: Allergies Allergy/AdvReac Type Severity Reaction Status Date / Time cortisone Allergy Unknown Verified 06/06/17 12:08 codeine Allergy Verified 06/06/17 12:08 morphine Allergy Verified 06/06/17 12:08 Penicillins Allergy Verified 06/06/17 12:08 propoxyphene Allergy Verified 06/06/17 12:08 Medications: Current Medications Acetaminophen (Tylenol) 650 mg PO Q4H PRN PRN Reason: Headache/Fever or Pain Hydrocodone Bitart/Acetaminophen (Lankin 5/325) 1 tab PO Q4H PRN PRN Reason: Moderate Pain (4-6) Last Admin: 06/06/17 13:26 Dose: 1 tab Aspirin (Ecotrin) 81 mg PO DAILY [facility] Last Admin: 06/11/17 08:26 Dose: 81 mg Carvedilol (Coreg) 3.125 mg PO BID-[facility] Last Admin: 06/11/17 16:34 Dose: 3.125 mg Digoxin (Lanoxin) 0.125 mg PO Q2D [facility] Enoxaparin Sodium (Lovenox) 60 mg SC 0900,2100 [facility] Guaifenesin/Dextromethorphan (Robitussin Dm) 10 ml PO Q4H PRN PRN Reason: Cough Last Admin: 06/10/17 09:50 Dose: 10 ml Methylcellulose (Citrucel) 500 mg PO BID [facility] Last Admin: 06/11/17 08:26 Dose: 500 mg Ondansetron HCl (Zofran) 4 mg IVP Q6H PRN PRN Reason: Nausea/Vomiting Last Admin: 06/06/17 13:20 Dose: 4 mg Polyethylene Glycol (Miralax) 17 gm PO DAILY [facility] Last Admin: 06/11/17 08:26 Dose: Not Given Silver Sulfadiazine (Silvadene) 0 gm TOP DAILY [facility] Last Admin: 06/11/17 08:28 Dose: 1 applic Sodium Chloride (Flush - Normal Saline) 10 ml IVF PRN PRN PRN Reason: Saline Flush Last Admin: 06/11/17 06:23 Dose: 10 ml Witch Elvia/Glycerin (Tucks Pads) 1 each TOP DAILYPRN PRN PRN Reason: Hemorrhoids Zolpidem Tartrate (Ambien) 5 mg PO HSPRN PRN PRN Reason: Insomnia
[2017-06-11] MEDS: Enoxaparin Sodium 60 MG/0.6 ML SYRINGE SC SCH (21:57)
[2017-06-12 04:31] LABS: Hemoglobin 9.9 g/dL (14.0-18.0); Platelet Count 210 thou/uL (130-400)
[2017-06-12 04:48] LABS: Anion Gap 11 mmol/L (10-20); BUN (Urea Nitrogen) 47 mg/dL (8.4-25.7); Calc. Creatinine Clearance 49 mL/min (70-130); Calcium 8.8 mg/dL (7.8-10.44); Carbon Dioxide 37 mmol/L (23-31); Chloride 94 mmol/L (98-107); Estimated GFR-MDRD 41; Glucose 76 mg/dL (83-110); Potassium 4.7 mmol/L (3.5-5.1); Sodium 137 mmol/L (136-145)
[2017-06-12] MEDS ORDERED: Carvedilol 6.25 MG TAB PO SCH (08:30)
[2017-06-12] MEDS: Enoxaparin Sodium 60 MG/0.6 ML SYRINGE SC SCH ×2 (08:32→20:43)
[2017-06-12] MEDS: Citrucel 500 MG TAB PO SCH ×2 (08:32→20:43)
[2017-06-12] MEDS: Aspirin 81 mg Enteric Coated Tablet PO SCH (08:32)
[2017-06-12] MEDS: Polyethylene Glycol 3350 17 GM Packet PO SCH (08:33)
[2017-06-12] MEDS: Carvedilol 3.125 MG TAB PO SCH (08:37)
[2017-06-12] MEDS ORDERED: Carvedilol 3.125 MG TAB PO SCH (09:00)
--- NOTE | 2017-06-12 09:07 | PRG ---
DATE OF SERVICE: 06/12/2017 Mr. Chandler is doing better today. No chest pain or pressure, no shortness of breath. PHYSICAL EXAMINATION: VITAL SIGNS: Blood pressure 128/75, pulse in the 90s, it is irregular. LUNGS: Clear. CARDIAC: Irregular, irregular. ABDOMEN: Soft, nontender. EXTREMITIES: Only mild edema. The I&O again are negative 5 liters yesterday. His weight has gone from 267 to 213. He is 44 pounds down. He looks euvolemic now. ASSESSMENT: 1. Congestive heart failure. 2. Chronic atrial fibrillation. 3. Renal failure, stable with a creatinine of 1.93. 3. Hyperkalemia, resolved. PLAN: 1. Would Hep-Lock IV. 2. Reduce dose of furosemide. 3. Okay with me to move out to telemetry out of the [facility].
--- NOTE | 2017-06-12 11:54 | PRG ---
DATE OF SERVICE: 06/12/2017 SUBJECTIVE: This 72-year-old gentleman being seen for acute kidney injury. The patient denies any n ausea, vomiting or chest pain. PHYSICAL EXAMINATION: GENERAL: Patient is awake, alert. VITAL SIGNS: Afebrile, pulse 91, breathing 16, blood pressure 122/75. OBJECTIVE: See above. Awake, alert, in no acute distress. GENERAL APPEARANCE AND MENTAL STATUS: Fair. HEAD/NECK: Normocephalic. Atraumatic. EYES: EOMI. No deformity. EARS: Clear. No ulcers. NOSE: Intact. No lesions. MOUTH: Clear. No discharge. THROAT: Clear. No exudate. LUNGS: Clear. No crackles. CARDIAC: S1, S2. No rub. ABDOMEN: Benign. BS+. GENITALIA/RECTUM: Vazquez absent. BACK/EXTREMITIES: Edema 0+ Ulcer- NEUROLOGICAL: Alert and motor intact. SKIN: Rash- Bruise- LYMPHATICS: Edema- Ulcer- LABORATORY: Hemoglobin 9.9, potassium is 4.7, bicarbonate 37, creatinine 1.9. ASSESSMENT AND RECOMMENDATIONS: 1. Acute kidney injury, improving due to cardiorenal syndrome and metabolic alkalosis. Agree with s topping the Lasix. 2. Hyperkalemia, improved. 3. Hyponatremia, stable. No indication for dialysis.
--- NOTE | 2017-06-12 13:09 | PRG ---
DATE OF SERVICE: 06/12/2017 SERVICE: Pulmonary Medicine. INTERVAL HISTORY: The patient is doing great from a respiratory standpoint. He denies any current f lisy, chills, nausea, vomiting or chest discomfort. Otherwise, there has been no interval change to his condition. PHYSICAL EXAMINATION: VITAL SIGNS: Afebrile, pulse 87, blood pressure 128/75, respirations 18, and saturation 96% on room air. GENERAL: Patient is awake, alert, in no apparent distress. LUNGS: Excellent air entry. Crackles are resolved. No prolonged expiratory phase or wheezing. HEART: Normal rate, regular. ABDOMEN: Soft, nontender, nondistended. Bowel sounds positive. MUSCULOSKELETAL: No cyanosis or clubbing. There is 1+ pitting throughout. GENITOURINARY: Vazquez catheter in place. NEUROLOGIC: Grossly nonfocal. LABORATORY DATA: WBC 13.1, hemoglobin 10.5, and platelets 179,000. PH 7.55, pCO2 of 42, pO2 of 86. Creatinine 1.93, BUN 47. Bicarbonate is jumped to 37. Potassium is now 4.7. Chloride 94. Urinaly sis is unremarkable. Blood culture is negative x1. ASSESSMENT: 1. Acute on chronic systolic heart failure, resolved to baseline. 2. Acute kidney injury, on chronic kidney disease, stable. 3. Anasarca, resolved. 4. Multiple skin lesions. 5. Metabolic alkalosis secondary to intravascular depletion (contraction alkalosis). PLAN: We will continue once daily dosing of his diuretic. At this point, we do not need to be aggre ssive at diuresing him. We have already successfully gotten over 25 liters off of him over the past 6 days. We will follow the potassium and if it dips low, replacement doses will be provided. [facility]z gard[facility] Critical Care will continue to follow while he remains in this location, but he is more than stab le for transition out of the IMCU to the floor.
[2017-06-12] MEDS: Carvedilol 6.25 MG TAB PO SCH (17:03)
--- NOTE | 2017-06-12 23:27 | PDOC.PN ---
- Subjective Encounter Start Date: 06/12/17 Encounter Start Time: 10:00 Patient seen and examined. No new complaints. No overnight events. No CP. - Objective Resuscitation Status: Resuscitation Status FULL:Full Resuscitation MAR Reviewed: Yes Vital Signs & Weight: Vital Signs (12 hours) Temp Pulse Pulse Resp BP BP BP 06/12/17 23:14 98.3 F 91 18 129/81 06/12/17 19:00 98.0 F 92 16 121/58 L 06/12/17 17:03 128/75 06/12/17 15:54 96.9 F L 80 16 110/72 06/12/17 14:17 76 110/72 Pulse Ox 06/12/17 23:14 97 06/12/17 19:00 95 06/12/17 17:03 06/12/17 15:54 94 L 06/12/17 14:17 Weight Admit Weight 260 lb 4.8 oz Weight 229 lb 6.4 oz I&O: 06/11/17 06/12/17 06/13/17 06:59 06:59 06:59 Intake Total 3448 1200 Output Total 8515 6050 475 Balance -5067 -4850 -475 Result Diagrams: 06/12/17 04:10 06/13/17 04:39 EKG Reviewed by me: Yes (Tele Afib) Phys Exam - Physical Examination Constitutional: NAD Respiratory: no wheezing, no rhonchi Cardiovascular: RRR, no rub Gastrointestinal: soft, non-tender, positive bowel sounds Neurological: moves all 4 limbs Dx/Plan - Plan DVT proph w/SCDs IMPRESSION: 1. Acute on chronic systolic heart failure exacerbation - improving 2. Hyperkalemia - resolved 3. NAHUN on CKD 3 - improving 4. Chronic venous stasis 5. Afib with RVR - rate controlled - on Anticoag. 6. HTN 7. Hypokalemia - resolved PLAN: * Cont current meds as below * Cardiology following * AM labs * cont to monitor * Nephrology/Critical care following Review of Systems - Review of Systems Constitutional: negative: Fever, Chills, Sweats, Weakness, Malaise Respiratory: SOB with Excertion. negative: Cough, Dry, Shortness of Breath, Hemoptysis, Pleuritic Pain, Sputum, Wheezing Cardiovascular: Other. negative: Chest Pain, Palpitations, Orthopnea, Paroxysmal Noc. Dyspnea, Edema, Light Headedness Neurological: negative: Weakness, Numbness, Incoordination, Change in Speech, Confusion, Seizures - Medications/Allergies Allergies/Adverse Reactions: Allergies Allergy/AdvReac Type Severity Reaction Status Date / Time cortisone Allergy Unknown Verified 06/06/17 12:08 codeine Allergy Verified 06/06/17 12:08 morphine Allergy Verified 06/06/17 12:08 Penicillins Allergy Verified 06/06/17 12:08 propoxyphene Allergy Verified 06/06/17 12:08 Medications: Current Medications Acetaminophen (Tylenol) 650 mg PO Q4H PRN PRN Reason: Headache/Fever or Pain Hydrocodone Bitart/Acetaminophen (Keno 5/325) 1 tab PO Q4H PRN PRN Reason: Moderate Pain (4-6) Last Admin: 06/06/17 13:26 Dose: 1 tab Aspirin (Ecotrin) 81 mg PO DAILY [facility] Last Admin: 06/12/17 08:32 Dose: 81 mg Carvedilol (Coreg) 6.25 mg PO BID-[facility] Last Admin: 06/12/17 17:03 Dose: 6.25 mg Digoxin (Lanoxin) 0.125 mg PO Q2D [facility] Enoxaparin Sodium (Lovenox) 60 mg SC 0900,2100 [facility] Last Admin: 06/12/17 20:43 Dose: 60 mg Furosemide (Lasix) 80 mg PO DAILY-[facility] Guaifenesin/Dextromethorphan (Robitussin Dm) 10 ml PO Q4H PRN PRN Reason: Cough Last Admin: 06/10/17 09:50 Dose: 10 ml Methylcellulose (Citrucel) 500 mg PO BID [facility] Last Admin: 06/12/17 20:43 Dose: 500 mg Ondansetron HCl (Zofran) 4 mg IVP Q6H PRN PRN Reason: Nausea/Vomiting Last Admin: 06/06/17 13:20 Dose: 4 mg Polyethylene Glycol (Miralax) 17 gm PO DAILY [facility] Last Admin: 06/12/17 08:33 Dose: Not Given Silver Sulfadiazine (Silvadene) 0 gm TOP DAILY [facility] Last Admin: 06/12/17 08:33 Dose: 1 applic Sodium Chloride (Flush - Normal Saline) 10 ml IVF PRN PRN PRN Reason: Saline Flush Last Admin: 06/11/17 20:09 Dose: 10 ml Witch Elvia/Glycerin (Tucks Pads) 1 each TOP DAILYPRN PRN PRN Reason: Hemorrhoids Zolpidem Tartrate (Ambien) 5 mg PO HSPRN PRN PRN Reason: Insomnia
[2017-06-13 05:14] LABS: Digoxin 0.48 ng/mL (0.8-2.0)
[2017-06-13 05:22] LABS: BUN (Urea Nitrogen) 40 mg/dL (8.4-25.7); Calc. Creatinine Clearance 59 mL/min (70-130); Calcium 8.5 mg/dL (7.8-10.44); Carbon Dioxide 27 mmol/L (23-31); Chloride 96 mmol/L (98-107); Estimated GFR-MDRD 50; Glucose 60 mg/dL (83-110); Magnesium 1.7 mg/dL (1.6-2.6); Potassium 4.8 mmol/L (3.5-5.1); Sodium 134 mmol/L (136-145)
[2017-06-13 05:24] LABS: Anion Gap 16 mmol/L (10-20)
[2017-06-13] MEDS: Enoxaparin Sodium 60 MG/0.6 ML SYRINGE SC SCH (08:18)
[2017-06-13] MEDS: Citrucel 500 MG TAB PO SCH ×2 (08:19→20:59)
[2017-06-13] MEDS: Aspirin 81 mg Enteric Coated Tablet PO SCH (08:19)
[2017-06-13] MEDS: Polyethylene Glycol 3350 17 GM Packet PO SCH (08:19)
[2017-06-13] MEDS: Furosemide 80 MG TAB PO SCH (08:19)
[2017-06-13] MEDS: Carvedilol 6.25 MG TAB PO SCH ×2 (08:19→17:15)
[2017-06-13] MEDS ORDERED: Digoxin 0.125 MG TAB PO SCH (09:00)
--- NOTE | 2017-06-13 12:14 | PRG ---
DATE OF SERVICE: 06/11/2017 SUBJECTIVE: This 72-year-old gentleman being seen for acute kidney injury. The patient denies any n ausea, vomiting, or chest pain. PHYSICAL EXAMINATION: GENERAL: Patient is awake, alert. VITAL SIGNS: Afebrile, pulse 69, breathing at 16, blood pressure 143/71. HEAD/NECK: Normocephalic. Atraumatic. EYES: EOMI. No deformity. EARS: Clear. No ulcers. NOSE: Intact. No lesions. MOUTH: Clear. No discharge. THROAT: Clear. No exudate. LUNGS: Clear. No crackles. CARDIAC: S1, S2. No rub. ABDOMEN: Benign. BS+. GENITALIA/RECTUM: Vazquez absent. BACK/EXTREMITIES: Edema 0+ Ulcer- NEUROLOGICAL: Alert and motor intact. SKIN: Rash- Bruise- LYMPHATICS: Edema- Ulcer- LABORATORY DATA: Show hemoglobin 9.9, creatinine 1.6. RECOMMENDATIONS: 1. Acute kidney injury, improved. 2. Hyperkalemia, improved. 3. Metabolic alkalosis, improved. 4. No indication for dialysis. I will see the patient as needed.
[2017-06-13] MEDS ORDERED: niCARdipine 20MG in NaCl 200 ML BAG IVPB PRN (16:40)
[2017-06-13] MEDS ORDERED: niCARdipine HCl 25 MG in Sodium Chloride 0.9% 250 ML 240 ML IVPB PRN (16:51)
[2017-06-13] MEDS ORDERED: levETIRAcetam In NaCl (Iso-Os) 1,000 MG in Premix Bag 1 BAG IVPB SCH ×2 (17:00)
[2017-06-13] MEDS ORDERED: Lorazepam 2 MG/ML VIAL ONE (17:08)
--- NOTE | 2017-06-13 17:08 | CT ---
CT BRAIN NONCONTRAST: DATE: 06/13/17 TIME: 4:31 p.m. HISTORY: A 72-year-old male with altered mental status and left sided facial droop. Patient is on anticoagulat ion therapy. Dr. Reyes discussed the findings by telephone with Dr. Root at 4:43 p.m. on 06/13/17. He was already aw are of the findings. COMPARISON: None. FINDINGS: There is multifocal, lobulated extra-axial acute or subacute hemorrhage mildly indenting the lateral gyri of the right posterior frontal, temporal, parietal, and occipital lobes. The appearance is atypi trisha for both subdural and epidural hematoma. This is not subarachnoid hemorrhage. Other than this, there is no other significant mass effect. The septum pellucidum is shifted slightly to the left of m idline, but it is uncertain whether this is chronic or acute. Ventricles are mildly enlarged on the b asis of diffuse parenchymal volume loss. No evidence of intra-axial hemorrhage. A small 1 cm focus of hyperdensity along the right tentorium cerebelli may or may not represent another small component of hemorrhage. No calvarial fracture. No intra-axial or subarachnoid hemorrhage. Prominent mucosal thic kening throughout bilateral ethmoid air cells and at left frontal recess. IMPRESSION: Multifocal, lobulated right lateral extra-axial acute or subacute hematomas, causing mild mass effect upon adjacent right cerebral gyri. ROLY Mcfarlane
[2017-06-13 17:09] LABS: #Eosinphils 0.2 thou/uL (0.0-0.7); #Neutrophils 8.7 thou/uL (1.40-6.50); %Basophils 0.4 % (0.0-1.0); %Eosinophils 1.4 % (0.0-10.0); %Monocytes 9.4 % (0.0-10.0); %Neutrophils 79.8 % (42.0-75.0); Mean Corpuscular HGB CONC 31.4 g/dL (32.0-36.0); Mean Corpuscular Hemoglobin 27.9 pg (27.0-31.0); Mean Platelet Volume 8.1 fL (7.4-10.4); Platelet Count 253 thou/uL (130-400); Red Blood Cell (RBC) Count 3.94 mill/uL (4.70-6.10); White Blood Cell (WBC) Count 10.8 thou/uL (4.8-10.8)
[2017-06-13 17:15] LABS: INR-International Normal Ratio 1.3; Prothrombin Time 16.6 SEC (12.0-14.7)
[2017-06-13 17:16] LABS: PTT 49.2 SEC (22.9-36.1)
[2017-06-13] MEDS ORDERED: Propofol 1,000 MG/100 ML VIAL IV ONE (17:23)
[2017-06-13] MEDS ORDERED: Protamine Sulfate 50 MG/5 ML VIAL SLOW IVP SCH (17:30)
[2017-06-13 17:34] LABS: CKMB 2.2 ng/mL (0-6.6); Troponin I 0.036 ng/mL (< 0.028)
[2017-06-13 17:35] LABS: ALT (SGPT) 16 U/L (8-55); AST (SGOT) 24 U/L (5-34); Albumin 2.3 g/dL (3.4-4.8); Alkaline Phosphatase 70 U/L (40-150); Anion Gap 12 mmol/L (10-20); BUN (Urea Nitrogen) 40 mg/dL (8.4-25.7); Bilirubin, Total 3.2 mg/dL (0.2-1.2); CK (CPK) 65 U/L (30-200); Calc. Creatinine Clearance 54 mL/min (70-130); Carbon Dioxide 32 mmol/L (23-31); Chloride 91 mmol/L (98-107); Estimated GFR-MDRD 45; Globulin 4.9 g/dL (2.4-3.5); Glucose 75 mg/dL (83-110); Magnesium 1.7 mg/dL (1.6-2.6); Phosphorus 3.9 mg/dL (2.3-4.7); Potassium 4.6 mmol/L (3.5-5.1); Protein, Total 7.2 g/dL (5.8-8.1); Sodium 130 mmol/L (136-145)
[2017-06-13 17:49] LABS: Actual Bicarbonate (HCO3a) 28.6 mEq/L (22-26); Base Excess (BEa) 6.5 mEq/L (0 (+/-) 2.5); CO2 Tension 31.7 mmHg (35.0-45.0); Calcium, Ionized 1.1 mmol/L (1.12-1.30); Hematocrit-ABG 36.2 % (42.0-52.0); Hemoglobin (Hb) 9.9 g/dL (14.0-18.0); O2 Tension (PaO2) 79.7 mmHg (80.0-100.0)
[2017-06-13 17:54] LABS: ALV-art Gradient 95.775 (0-20); Puncture Site LB; pH, Arterial 7.57 (7.35-7.45)
[2017-06-13] MEDS ORDERED: Sedation Protocol FS ONE (18:48)
[2017-06-13] MEDS ORDERED: Bisacodyl 10 MG SUPP PR PRN (18:48)
[2017-06-13] MEDS ORDERED: Lacri-Lube Opth Oint 3.5 GM TUBE EA EYE PRN (18:48)
[2017-06-13] MEDS ORDERED: Acetaminophen 325 MG Suppository PR PRN (18:48)
[2017-06-13] MEDS ORDERED: Lorazepam 2 MG/ML VIAL SLOW IVP PRN (18:55)
[2017-06-13] MEDS ORDERED: DISCONTINUE PREVIOUS NARCOTIC PAIN MEDICATIONS AND BENZODIAZEPINES FS SCH (18:55)
[2017-06-13] MEDS ORDERED: Fentanyl 20 MCG/ML 250 ML IVPB SCH (18:55)
--- NOTE | 2017-06-13 18:55 | PDOC.PN ---
- Subjective Encounter Start Date: 06/13/17 Encounter Start Time: 16:00 Patient seen and examined. Code green called for seizure/stroke like symptoms. No overnight events - Objective Resuscitation Status: Resuscitation Status FULL:Full Resuscitation MAR Reviewed: Yes Vital Signs & Weight: Vital Signs (12 hours) Temp Pulse Pulse Pulse Pulse Pulse Pulse 06/13/17 18:25 97.9 F 06/13/17 18:13 97.9 F 06/13/17 18:08 98.3 F 06/13/17 18:00 06/13/17 17:43 98.3 F 101 H 06/13/17 17:28 91 06/13/17 17:15 06/13/17 16:04 85 82 82 78 95 06/13/17 15:44 97.5 F L 84 06/13/17 12:23 97.6 F 74 06/13/17 11:00 06/13/17 08:19 67 06/13/17 08:00 96.8 F L 67 Pulse Pulse Pulse Pulse Resp Resp Resp 06/13/17 18:25 93 12 06/13/17 18:13 93 12 06/13/17 18:08 100 12 06/13/17 18:00 12 06/13/17 17:43 12 06/13/17 17:28 06/13/17 17:15 06/13/17 16:04 95 18 18 06/13/17 15:44 20 06/13/17 12:23 20 06/13/17 11:00 76 06/13/17 08:19 06/13/17 08:00 20 Resp Resp Resp Resp BP BP BP 06/13/17 18:25 06/13/17 18:13 06/13/17 18:08 06/13/17 18:00 06/13/17 17:43 06/13/17 17:28 111/71 06/13/17 17:15 153/84 H 06/13/17 16:04 20 20 18 20 133/66 139/89 06/13/17 15:44 06/13/17 12:23 06/13/17 11:00 06/13/17 08:19 165/87 H 06/13/17 08:00 BP BP BP BP BP BP BP 06/13/17 18:25 164/89 H 06/13/17 18:13 170/98 H 06/13/17 18:08 179/102 H 06/13/17 18:00 06/13/17 17:43 06/13/17 17:28 06/13/17 17:15 06/13/17 16:04 137/93 H 123/95 H 126/87 149/77 H 06/13/17 15:44 157/88 H 06/13/17 12:23 120/74 06/13/17 11:00 126/86 06/13/17 08:19 06/13/17 08:00 165/87 H Pulse Ox Pulse Ox Pulse Ox Pulse Ox Pulse Ox Pulse Ox Pulse Ox 06/13/17 18:25 100 06/13/17 18:13 100 06/13/17 18:08 100 06/13/17 18:00 06/13/17 17:43 100 06/13/17 17:28 06/13/17 17:15 06/13/17 16:04 100 98 100 99 98 98 06/13/17 15:44 06/13/17 12:23 93 L 06/13/17 11:00 06/13/17 08:19 06/13/17 08:00 97 Pulse Ox 06/13/17 18:25 06/13/17 18:13 06/13/17 18:08 06/13/17 18:00 06/13/17 17:43 06/13/17 17:28 06/13/17 17:15 06/13/17 16:04 06/13/17 15:44 06/13/17 12:23 06/13/17 11:00 100 06/13/17 08:19 06/13/17 08:00 Weight Admit Weight 260 lb 4.8 oz Weight 230 lb Most Recent Monitor Data Heart Rate from ECG 86 NIBP 170/93 NIBP BP-Mean 123 Respiration from ECG 12 SpO2 100 I&O: 06/12/17 06/13/17 06/14/17 06:59 06:59 06:59 Intake Total 1200 480 290 Output Total 6050 975 150 Balance -4850 -495 140 Result Diagrams: 06/13/17 16:54 06/13/17 16:54 Additional Labs: Accuchecks 06/13/17 06/13/17 06/13/17 18:31 16:13 15:44 POC Glucose 73 71 77 06/13/17 12:56 POC Glucose 86 Radiology Reviewed by me: Yes (CT brain - IC bleed) EKG Reviewed by me: Yes (Tele SR) Phys Exam - Physical Examination Ongoing seizure/Not following commands. Respiratory: no wheezing, no rhonchi Scat rales at base Cardiovascular: RRR, no rub no rubs/gallops Gastrointestinal: soft, non-tender, positive bowel sounds Musculoskeletal: edema present Neuro/Psych - not following commands with focal seizure left face Cannot do complete exam due to current cognition Dx/Plan - Plan DVT proph w/SCDs IMPRESSION: 1. Acute intracranial bleed with seizure 2. Acute hypoxic resp failure due to # 1 3. Acute on chronic systolic heart failure exacerbation 4. NAHUN on CKD 3 - improving 5. Chronic venous stasis with ulcerations - wound care following 6. Afib with RVR - rate controlled - Anticoag dced due to bleeding. 7. HTN 8. Hypokalemia/Hyperkalemia - resolved PLAN: * Reverse bleeding * Case d/w Neuro/NSG/Critical care * Transferred to CCU * AM labs * Keppra loading followed by BID * Cont current meds as below * Cardiology following * AM labs * cont to monitor * Nephrology/Critical care following * Repeat CT brain in AM Review of Systems - Review of Systems Other: Cannot obtain due to current mentation - Medications/Allergies Allergies/Adverse Reactions: Allergies Allergy/AdvReac Type Severity Reaction Status Date / Time cortisone Allergy Unknown Verified 06/06/17 12:08 codeine Allergy Verified 06/06/17 12:08 morphine Allergy Verified 06/06/17 12:08 Penicillins Allergy Verified 06/06/17 12:08 propoxyphene Allergy Verified 06/06/17 12:08 Medications: Current Medications Acetaminophen (Tylenol) 650 mg PO Q4H PRN PRN Reason: Headache/Fever or Pain Acetaminophen (Tylenol) 650 mg MS Q6H PRN PRN Reason: Fever > 101 or Mild Pain Albuterol/Ipratropium (Duoneb) 3 ml NEB [id number] PRN PRN Reason: SOB &/or Wheezing Bisacodyl (Dulcolax) 10 mg MS DAILYPRN PRN PRN Reason: Constipation Carvedilol (Coreg) 6.25 mg PO BID-[facility] Last Admin: 06/13/17 17:15 Dose: Not Given Digoxin (Lanoxin) 0.125 mg PO Q2D [facility] Last Admin: 06/13/17 08:19 Dose: 0.125 mg Famotidine (Pepcid) 20 mg SLOW IVP Q12HR [facility] Furosemide (Lasix) 80 mg PO DAILY-[facility] Last Admin: 06/13/17 08:19 Dose: 80 mg Guaifenesin/Dextromethorphan (Robitussin Dm) 10 ml PO Q4H PRN PRN Reason: Cough Last Admin: 06/10/17 09:50 Dose: 10 ml Levetiracetam 1,000 mg/ Device 100 mls @ 200 mls/hr IVPB NOW ROXANNA Stop: 06/13/17 19:00 Last Admin: 06/13/17 17:12 Dose: 100 mls Levetiracetam 500 mg/ Device 100 mls @ 200 mls/hr IVPB BID [facility] Nicardipine HCl 25 mg/ Sodium (Chloride) 250 mls @ 0 mls/hr IVPB INF PRN; Protocol; Titrate PRN Reason: SBP > 150 OR DBP >90 Labetalol HCl (Normodyne) 10 mg SLOW IVP Q2H PRN PRN Reason: SBP > 150 or DBP > 90 Lorazepam (Ativan) 2 mg SLOW IVP Q15MIN PRN PRN Reason: Seizures Methylcellulose (Citrucel) 500 mg PO BID [facility] Last Admin: 06/13/17 08:19 Dose: 500 mg Mineral Oil/White Petrolatum (Lacri-Lube Ointment) 0 gm EA EYE PRN PRN PRN Reason: Dry Eyes Miscellaneous Medication (Sedation Protocol) 1 each FS ONE ONE Stop: 06/13/17 18:49 Ondansetron HCl (Zofran) 4 mg IVP Q6H PRN PRN Reason: Nausea/Vomiting Last Admin: 06/06/17 13:20 Dose: 4 mg Polyethylene Glycol (Miralax) 17 gm PO DAILY [facility] Senna/Docusate Sodium (Senokot S) 2 tab PO BID [facility] Silver Sulfadiazine (Silvadene) 0 gm TOP DAILY [facility] Last Admin: 06/13/17 08:19 Dose: Not Given Sodium Chloride (Flush - Normal Saline) 10 ml IVF PRN PRN PRN Reason: Saline Flush Last Admin: 06/11/17 20:09 Dose: 10 ml Witch Elvia/Glycerin (Tucks Pads) 1 each TOP DAILYPRN PRN PRN Reason: Hemorrhoids
--- NOTE | 2017-06-13 19:30 | PRG ---
DATE OF SERVICE: 06/13/2017 Mr. Chandler apparently had a seizure. He was transferred to CT. A small area of blood in his right he misphere that maybe epidural or subdural. I do not see a parenchymal bleed in the left just below th e surface of the brain, awaiting the report. PHYSICAL EXAMINATION: VITAL SIGNS: He is not seizing now. He is protecting his airway. He is afebrile, heart rate is 84, respiratory rate 20, oximetry is 93. Blood pressure 157/88 earlier. His blood pressure currently i s 140 systolic. LUNGS: Clear. CARDIOVASCULAR: Regular rhythm. ABDOMEN: Soft. IMPRESSION: Status post seizure secondary to right hemisphere blood. PLAN: Controlled seizures with a loading dose of Keppra. He does not need to be intubated at this t devin.
--- NOTE | 2017-06-13 19:31 | PRG ---
DATE OF SERVICE: 06/13/2017 Mr. Chandler continues to have intermittent seizure activity, so we will intubate him and sedate him. Marnie fraga still has not received his loading dose of Keppra, but it has only been apparently about 6 minutes since it is ordered.
[2017-06-13 20:40] LABS: Troponin I 0.034 ng/mL (< 0.028)
[2017-06-13] MEDS: Senokot S 8.6-50 MG TAB PO SCH (21:00)
[2017-06-13] MEDS: Famotidine/PF 20 mg/2ml Vial SLOW IVP SCH (21:58)
--- NOTE | 2017-06-13 22:52 | OP ---
uAstin Chandler continued to seize. Marissa was starting to go in as we elected to intubate him. He is Ambu bagged. He would not open hi s mouth. He was ventilating reasonably well so we did not feel that we needed to paralyze him. Bron choscope was easily passed through his right nare, through his cords into his trachea and then a 7.5 endotracheal tube was secured above his samir. He tolerated intubation well. He did not aspirate d uring intubation. He was connected to mechanical ventilation. He was then chemically paralyzed and is being sedated wi propofol drip. He is receiving protamine 50 mg right now, 1 unit of liquid plasma will go in and then 3 units of rocio sh frozen plasma once followed will go in. Neurology has seen the patient at this time. Neurosurger destin possibly may need to be consulted.
--- NOTE | 2017-06-14 01:22 | CON ---
DATE OF CONSULTATION: 06/13/2017 Phill Mercedes PA-C dictating for Brandt Fine MD This is a 50-minute initial patient consult in which greater than 50% of the exam was spent in counseling and coordinating the patient's care. The remainder of the exam was spent in review of patient's medical records and appropriate imaging studies. CHIEF COMPLAINT: Altered mental status following initiation of aspirin and Lovenox following his CVA. HISTORY OF PRESENT ILLNESS: Mr. Chandler is a 72-year-old male who presented to [facility] with stroke like symptoms. Apparently throughout the past few days, he has been receiving aspirin and 60 mg of Lovenox b.i.d. for his ischemic strokes. Apparently, he developed significant right-sided subdural hematoma and subsequently experienced seizure-like activity, resulting in past paralysis on the left side. The patient has significant medical history for cardiac issues, chronic kidney disease, and diabetes, as well as hypertension. Neurosurgery is asked to consult regarding the patient's subdural hematoma. Apparently, the seizure was so significant that the patient was unable to protect his airway and he required immediate intubation when transferred to the CCU from the stroke unit today. He has received rocuronium and vecuronium. During intubation, he received sedating medications, which are so an effect during the exam. The medication was given at roughly 05:20 today, my exam is at 06:40 today, a little more than an hour after receiving these medications. PHYSICAL EXAMINATION: The patient is currently intubated via nasopharynx rather than oropharynx. It does appear that there was fairly traumatic intubation. The patient is not following any commands currently. He does not currently have corneal reflexes and is not breathing over the ventilator. He has no cough reflex. His GCS currently is 3T. He does not withdrawal to painful stimulus in any of the extremities currently. IMPRESSION/DIAGNOSES: 1. Status post ischemic stroke on aspirin and Lovenox, resulting in right subdural hematoma. 2. Chronic kidney disease. 3. Diabetes. 4. Significant cardiac disease. PLAN: I have discussed the patient's case with Dr. Fine as well as the imaging studies. At this time, we would like patient to have his blood pressure less than 160 systolic. He will be n.p.o. and we will repeat a head CT without contrast in the morning. It is unlikely at this time that the patient will require neurosurgical intervention. We will wait for the repeat head CT to determine next appropriate step. Neurology is helping to control and manage patient's seizures. Hopefully, after the patient's sedation is worn off, his exam will improve. We will continue to monitor him. He may be on sedation at this time due to the intubation, propofol has been ordered from our medical colleagues. We would like his head of bed elevated at 30 degrees at all times. Please call with any questions or changes in patient's neurologic status. I have also ordered that his Lovenox and aspirin be held at this time. His current INR is 1.3. He has received 4 units of fresh-frozen plasma at the [facility]. Again, we will continue to follow the patient. LUCAS
[2017-06-14] MEDS: Propofol 1,000 MG/100 ML VIAL IV PRN ×2 (01:53→16:55)
[2017-06-14 05:12] LABS: ALT (SGPT) 12 U/L (8-55); AST (SGOT) 21 U/L (5-34); Albumin 2.1 g/dL (3.4-4.8); Alkaline Phosphatase 59 U/L (40-150); Anion Gap 11 mmol/L (10-20); BUN (Urea Nitrogen) 38 mg/dL (8.4-25.7); Bilirubin, Total 2.5 mg/dL (0.2-1.2); Calc. Creatinine Clearance 55 mL/min (70-130); Calcium 8.2 mg/dL (7.8-10.44); Carbon Dioxide 32 mmol/L (23-31); Chloride 94 mmol/L (98-107); Estimated GFR-MDRD 46; Glucose 72 mg/dL (83-110); Magnesium 1.6 mg/dL (1.6-2.6); Potassium 3.7 mmol/L (3.5-5.1); Protein, Total 6.1 g/dL (5.8-8.1); Sodium 133 mmol/L (136-145)
[2017-06-14 05:18] LABS: Eosinophils 2 % (0-10); Hemoglobin 9.1 g/dL (14.0-18.0); Lymphocytes 6 % (21-51); MDiff Complete? YES; Mean Corpuscular HGB CONC 31.1 g/dL (32.0-36.0); Mean Corpuscular Hemoglobin 27.5 pg (27.0-31.0); Mean Corpuscular Volume 88.3 fl (80.0-94.0); Mean Platelet Volume 8.5 fL (7.4-10.4); Monocytes 6 % (0-10); Neutrophil 86 % (42-75); Platelet Count 243 thou/uL (130-400); RBC Distribution Width 17.8 % (11.5-14.5); Target Cells SLIGHT = 2-5 cells (100X) (0-1/hpf); White Blood Cell (WBC) Count 9.9 thou/uL (4.8-10.8)
--- NOTE | 2017-06-14 05:58 | CON ---
DATE OF CONSULTATION: 06/13/2017 REFERRING PROVIDER: Dr. Jose Root. REASON FOR CONSULTATION: Acute onset of left facial droop and left facial twitching, stroke alert was initiated. HISTORY OF PRESENT ILLNESS: Mr. Chandler is a 72-year-old -Prydeinig male who has been consulted for evaluation of acute onset left facial droop and left facial twitching. A stroke alert is initiated. Apparently, the patient has multiple medical problems including hypertension, cardiomyopathy, peripheral vascular disease, history of prostate cancer. He was found to have sudden onset of Left facial droop, left facial twitching, and changes in mentation. For this reason stroke alert was initiated. PAST SURGICAL HISTORY: Significant for prostatectomy, peripheral vascular stent placement. FAMILY HISTORY: Significant for heart disease. SOCIAL HISTORY: He has a prior history of smoking and alcohol use. He has not had any smoking for 10 years and drinking alcohol for more than 3 years. CURRENT MEDICATIONS: Please review MAR. ALLERGIES: Include PENICILLIN, MORPHINE, DIOVAN, STEROIDS and CODEINE. REVIEW OF SYSTEMS: Unable to obtain. PHYSICAL EXAMINATION: VITAL SIGNS: Blood pressure of 111/71, pulse of 91, respirations of 12 on mechanical ventilation. GENERAL: On my initial evaluation, patient is intubated and paralyzed with paralytics and was started on Diprivan. Exam is limited as the patient was just intubated and sedated, and paralyzed. No further exam could be done immediately. IMAGING: CT head without contrast was reviewed, which showed acute to subacute right extraaxial hemorrhage. IMPRESSION: 1. Right extraaxial hemorrhage. 2. Left facial droop with left facial twitching. 3. Focal motor seizure. ASSESSMENT AND PLAN: Mr. Chandler is a 72-year-old -Prydeinig male who has been admitted for his other medical issues, had a sudden onset of left facial droop with left facial twitching. He was not a candidate for any IV TPA or endovascular therapy as the CT scan of the head did show an extraaxial hemorrhage that is acute. At this time, I would recommend to the hospitalist, Dr. Root to load him with Keppra 1000 mg IV one time dose, followed by Keppra 500 mg b.i.d. I would also recommend consulting Neurosurgery for recently noted extraaxial hemorrhage. I will also recommend stopping his Lovenox and reversing it with fresh frozen plasma. Continue supportive care. Continue current medical management. MTDD
[2017-06-14 07:57] LABS: Actual Bicarbonate (HCO3a) 30.1 mEq/L (22-26); CO2 Tension 36.8 mmHg (35.0-45.0); Calcium, Ionized 1.1 mmol/L (1.12-1.30); Hematocrit-ABG 32.9 % (42.0-52.0); Hemoglobin (Hb) 9.4 g/dL (14.0-18.0); O2 Tension (PaO2) 104.9 mmHg (80.0-100.0); pH, Arterial 7.53 (7.35-7.45)
[2017-06-14 07:58] LABS: Puncture Site LRA
--- NOTE | 2017-06-14 08:28 | CT ---
PRELIMINARY REPORT/[facility]/EMERGENCY AFTER HOURS PROCEDURE: EXAM: CT Head Without Intravenous Contrast CLINICAL HISTORY: 72 years old, male; Condition or disease; Other: F/u bleeed; Patient HX: F/u intracerebral hemorrhagi c stroke TECHNIQUE: Axial computed tomography images of the head/brain without intravenous contrast. COMPARISON: CT Brain WO Con 2017-06-13 16:26 FINDINGS: Grossly stable right-sided subdural hematoma with mild mass effect and minimal shift to the left. Ventricles are stable in size. Air fluid levels in the paranasal sinuses observed. No acute territorial infarction IMPRESSION: Grossly stable right-sided subdural hematoma with minimal shift to the left Presumed inflammatory changes in the paranasal sinuses. Thank you for allowing us to participate in the care of your patient. Dictated and Authenticated by: Asa Marcial MD 06/14/2017 4:52 AM Central Time ([place] & [place]) FINAL REPORT HEAD CT WITHOUT CONTRAST: Date: 06/14/17 COMPARISON: 06/13/17. HISTORY: Re-evaluate intracranial hemorrhage. FINDINGS: I agree with the preliminary report given by [facility]. There are lobulated areas of extra-axial hyperdens ity consistent with subdural hematoma on the right. There is a focus along the tentorium on the right on image 11, stable. There are lobulated foci of subdural hemorrhage in the right posteroparietal an d lateral frontal regions, measuring up to 1.2 cm in transverse dimension on axial image 21, stable. There is minimal right to left midline shift at the level of the foramen of Monro measuring in the 2- 3 mm range. There is partial opacification of bilateral ethmoid air cells, maxillary sinuses, and sphenoid sinuse s with air fluid levels. No displaced calvarial fracture. IMPRESSION: Lobulated subdural hematoma on the right with components in the middle cranial fossa extending to the vertex. The distribution and volume of acute right subdural hematoma does not appear significantly c hanged since 06/13/17. There is minimal right to left midline shift. POS: CRISTIAN
[2017-06-14] MEDS: Senokot S 8.6-50 MG TAB PO SCH ×3 (09:26→20:59)
[2017-06-14] MEDS: Furosemide 80 MG TAB PO SCH (09:27)
[2017-06-14] MEDS: Polyethylene Glycol 3350 17 GM Packet PO SCH (09:27)
[2017-06-14] MEDS: Citrucel 500 MG TAB PO SCH ×2 (09:27→20:59)
[2017-06-14] MEDS: Carvedilol 6.25 MG TAB PO SCH ×2 (09:27→16:56)
[2017-06-14] MEDS: Famotidine/PF 20 mg/2ml Vial SLOW IVP SCH ×2 (09:27→20:58)
--- NOTE | 2017-06-14 09:48 | PRG ---
DATE OF SERVICE: 06/14/2017 SERVICE: Pulmonary Medicine. INTERVAL HISTORY: The patient has done poorly overnight. Yesterday on the floor, he had new onset o f neurologic symptoms. Edith bolivar was called. He underwent CT scan and had new onset of subacute mandujano bdural hematoma with some midline shift. This was likely explaining some of his neurologic deficit. Because he was having onset of seizures that were hard to break, he was intubated. He was clamping down through the mouth and had to be done nasally. He cannot provide any additional elements of the history. This morning, he had a sedation holiday. He is moving everything except for unilateral aff ected limb. He was not following commands, but the sedation holiday was not long enough for him to w teddy up fully. He went down for CT scan yesterday. He had a repeat CT scan this morning which demons trated stability of this lesion. PHYSICAL EXAMINATION: VITAL SIGNS: Afebrile, pulse 73, blood pressure 124/85, respiration 16, saturation 99% on 27% FiO2. GENERAL: Patient is intubated and sedated. HEENT: Normocephalic, atraumatic. Sclerae are white, conjunctivae pink. Oral and nasal mucosa is m oist without lesions. LUNGS: Decent air entry. I do not appreciate wheezing, rhonchi or crackles. HEART: Normal rate and regular. ABDOMEN: Soft, nontender, nondistended. Bowel sounds are positive. MUSCULOSKELETAL: No cyanosis or clubbing. There is now trace pitting in the bilateral lower extremi ties which is vastly improved compared to presentation. GENITOURINARY: No Vazquez. NEUROLOGIC: He is not moving his left upper extremity. Outside of that, he is nonfocal. LABORATORY DATA: WBC 9.9, hemoglobin 9.1, platelets 243,000. A pH 7.53, pCO2 36, and pO2 104. Crea tinine 1.78 and roughly stable. Basic metabolic profile is otherwise unremarkable. Total bilirubin is 2.5, which is down trending gently. IMAGIN. CT of the brain x2 demonstrates a right-sided subdural hematoma. There is some midline shift. T his is stable over the last 12 hours. 2. His chest x-ray demonstrates interstitial fullness. No discrete consolidation is identified. En dotracheal tube is roughly 5 cm above the samir. There is a widened carinal angle. Left perihilar fullness is present. Pulmonary and vascular engorgement is evident. ASSESSMENT: 1. Acute on chronic systolic and diastolic heart failure, resolved to baseline. 2. Acute kidney injury on chronic kidney disease, resolved. 3. Seizure disorder. 4. Subdural hematoma. 5. Combined metabolic and respiratory alkalosis. PLAN: I will drop his rate. I will also drop his tidal volume. Hopefully, he will start to picker and packer some work of breathing. I will leave him intubated over the next 24 hours as he does have significa nt amounts of blood products coming from his nose. In the morning, extubation will be considered if he remains hemodynamically stable, and has mentation that would support such a thing. CRITICAL CARE TIME: 30 minutes.
--- NOTE | 2017-06-14 10:01 | RAD ---
PORTABLE SEMIUPRIGHT FRONTAL CHEST RADIOGRAPH: DATE: 06/14/17. COMPARISON: 06/05/17. HISTORY: Ventilated patient, respiratory distress. FINDINGS: Since the 06/05/17 examination, there has been development of patchy nonspecific opacity in bilateral perihilar regions in both lung bases, left greater than right. Cardiac silhouette is prominent. Th ere is a new endotracheal tube terminating at the level of the clavicles. Nasogastric tube extends i nto the left upper quadrant of abdomen. Single-lead transvenous pacing device noted. IMPRESSION: Lines and tubes as above. Interval development of increased density in the perihilar regions in both lung bases suggests pulmonary edema, infectious pneumonitis, and/or aspiration. POS: [facility]
--- NOTE | 2017-06-14 10:17 | PRG ---
DATE OF SERVICE: 06/14/2017 Mr. Chandler remains intubated on the ventilator. The nurse tells me that when the sedation is reduced he does not follow commands. PHYSICAL EXAMINATION: VITAL SIGNS: Blood pressure 124/85, pulse is 60, it is atrial fibrillation. LUNGS: Clear. CARDIAC: Irregular, irregular. ABDOMEN: Soft, nontender. EXTREMITIES: There is mild edema. The patient has developed gastrointestinal bleeding in addition to the intracranial bleeding. ASSESSMENT: 1. Congestive heart failure, systolic - clinically improved. 2. Chronic atrial fibrillation. 3. Intracranial bleeding. 4. Gastrointestinal bleeding. PLAN: 1. The patient's Lovenox was stopped and given protamine yesterday afternoon. 2. We will stop digoxin now, the heart rate is in the low 60s. Prognosis appears guarded to poor in this unfortunate gentleman.
--- NOTE | 2017-06-14 12:27 | PRG ---
DATE OF SERVICE: 06/14/2017 SUBJECTIVE: This is a 72-year-old gentleman being seen for acute kidney injury. The patient has had an event which was noted. The patient is intubated. PHYSICAL EXAMINATION: GENERAL: Patient is resting. VITAL SIGNS: Afebrile, pulse 79, breathing 16, blood pressure 144/71. HEAD: Shows no edema. NECK: Supple, no JVD. CHEST: Symmetrical and clear. CARDIOVASCULAR: Shows S1, S2. No rub. EXTREMITIES: No edema. LABORATORY: Hemoglobin 9.1, creatinine 1.7. ASSESSMENT AND RECOMMENDATIONS: 1. Acute kidney injury with chronic kidney disease. Creatinine is better than baseline, no indicati on for dialysis. 2. Hypertension, stable. 3. Anemia, stable. 4. Medications based on GFR are appropriate at this time. I will sign off on this patient. The patient's renal function has improved. Please reconsult as slick najera.
[2017-06-14] MEDS: Witch Hazel-Glycerin 1 EACH JAR TOP SCH ×2 (15:24→20:59)
[2017-06-14] MEDS: Dextrose 5 %-0.45 % NaCl 1,000 ML IV SCH (16:54)
--- NOTE | 2017-06-14 18:47 | PDOC.PN ---
- Subjective Encounter Start Date: 06/14/17 Encounter Start Time: 12:30 Patient seen and examined. Intubated/Sedated on Vent. No overnight events - Objective Resuscitation Status: Resuscitation Status FULL:Full Resuscitation MAR Reviewed: Yes Vital Signs & Weight: Vital Signs (12 hours) Temp Pulse Resp BP Pulse Ox 06/14/17 18:00 13 06/14/17 16:56 107/64 06/14/17 16:23 72 107/64 06/14/17 16:00 97.5 F L 11 L 06/14/17 15:00 98.5 F 06/14/17 14:00 98.6 F 13 06/14/17 13:00 98.6 F 74 125/70 06/14/17 12:00 98.6 F 18 06/14/17 11:00 98 F 06/14/17 10:56 79 114/71 06/14/17 10:46 97.5 F L 06/14/17 10:00 12 06/14/17 09:30 94 F L 06/14/17 09:27 124/85 06/14/17 09:12 73 124/85 06/14/17 08:00 94 F L 82 18 99 Weight Admit Weight 260 lb 4.8 oz Weight 229 lb 0.964 oz Most Recent Monitor Data Heart Rate from ECG 74 NIBP 121/63 NIBP BP-Mean 81 Respiration from ECG 18 SpO2 99 I&O: 06/13/17 06/14/17 06/15/17 06:59 06:59 06:59 Intake Total 480 1821 499 Output Total 975 930 540 Balance -495 891 -41 Result Diagrams: 06/14/17 03:45 06/14/17 03:45 Additional Labs: Accuchecks 06/14/17 06/14/17 06/14/17 16:18 12:44 06:04 POC Glucose 55 L* 62 L 67 L 06/14/17 00:57 POC Glucose 89 EKG Reviewed by me: Yes (Tele SR) Phys Exam - Physical Examination Intubated on Vent Respiratory: no wheezing, no rhonchi Cardiovascular: RRR, no rub Scat rales at bases Gastrointestinal: soft, positive bowel sounds Musculoskeletal: edema present Neurological: moves all 4 limbs Dx/Plan - Plan DVT proph w/SCDs IMPRESSION: 1. Acute intracranial bleed with seizure - NSG following, on Keppra 2. Acute hypoxic resp failure due to # 1 3. Acute on chronic systolic heart failure exacerbation 4. NAHUN on CKD 3 - improving 5. Chronic venous stasis with ulcerations - wound care following 6. Afib with RVR - rate controlled - Anticoag dced due to bleeding. 7. HTN 8. Hypokalemia/Hyperkalemia - resolved PLAN: * Cont CCU monitoring * Cont current meds as below * Cardiology/Nephro/Critical care following * AM labs * cont to monitor Review of Systems - Review of Systems Other: Cannot obtain due to sedation - Medications/Allergies Allergies/Adverse Reactions: Allergies Allergy/AdvReac Type Severity Reaction Status Date / Time cortisone Allergy Unknown Verified 06/06/17 12:08 codeine Allergy Verified 06/06/17 12:08 morphine Allergy Verified 06/06/17 12:08 Penicillins Allergy Verified 06/06/17 12:08 propoxyphene Allergy Verified 06/06/17 12:08 Medications: Current Medications Acetaminophen (Tylenol) 650 mg PO Q4H PRN PRN Reason: Headache/Fever or Pain Acetaminophen (Tylenol) 650 mg KS Q6H PRN PRN Reason: Fever > 101 or Mild Pain Albuterol/Ipratropium (Duoneb) 3 ml NEB [id number] PRN PRN Reason: SOB &/or Wheezing Bisacodyl (Dulcolax) 10 mg KS DAILYPRN PRN PRN Reason: Constipation Carvedilol (Coreg) 6.25 mg PO BID-WM [facility] Last Admin: 06/14/17 16:56 Dose: 6.25 mg Famotidine (Pepcid) 20 mg SLOW IVP Q12HR [facility] Last Admin: 06/14/17 09:27 Dose: 20 mg Furosemide (Lasix) 80 mg PO DAILY-AC [facility] Last Admin: 06/14/17 09:27 Dose: 80 mg Guaifenesin/Dextromethorphan (Robitussin Dm) 10 ml PO Q4H PRN PRN Reason: Cough Last Admin: 06/10/17 09:50 Dose: 10 ml Levetiracetam 500 mg/ Device 100 mls @ 200 mls/hr IVPB BID [facility] Last Admin: 06/14/17 09:25 Dose: 100 mls Nicardipine HCl 25 mg/ Sodium (Chloride) 250 mls @ 0 mls/hr IVPB INF PRN; Protocol; Titrate PRN Reason: SBP > 150 OR DBP >90 Fentanyl (Fentanyl Cadd) 250 mls @ 0 mls/hr IVPB INF [facility]; Titrate PRN Reason: Protocol Stop: 07/13/17 18:55 Fentanyl Citrate (Fentanyl Bolus) 250 mls @ 0 mls/hr IVPB PRN PRN; As Directed PRN Reason: Breakthrough pain Stop: 07/13/17 18:55 Dextrose/Sodium Chloride (D5 1/2 Ns) 1,000 mls @ 75 mls/hr IV .[id number] [facility] Last Admin: 06/14/17 16:54 Dose: 1,000 mls Labetalol HCl (Normodyne) 10 mg SLOW IVP Q2H PRN PRN Reason: SBP > 150 or DBP > 90 Lorazepam (Ativan) 2 mg SLOW IVP Q15MIN PRN PRN Reason: Seizures Lorazepam (Ativan) 2 mg SLOW IVP Q2H PRN PRN Reason: Anxiety to achieve Haynes 2-3 Stop: 07/13/17 18:55 Methylcellulose (Citrucel) 500 mg PO BID [facility] Last Admin: 06/14/17 09:27 Dose: Not Given Mineral Oil/White Petrolatum (Lacri-Lube Ointment) 0 gm EA EYE PRN PRN PRN Reason: Dry Eyes Ondansetron HCl (Zofran) 4 mg IVP Q6H PRN PRN Reason: Nausea/Vomiting Last Admin: 06/06/17 13:20 Dose: 4 mg Polyethylene Glycol (Miralax) 17 gm PO DAILY [facility] Last Admin: 06/14/17 09:27 Dose: Not Given Propofol (Diprivan) 1,000 mg IV INF PRN; Protocol PRN Reason: TO ACHIEVE HAYNES SCORE 2-3 Stop: 07/13/17 18:55 Last Admin: 06/14/17 16:55 Dose: 1,000 mg Senna/Docusate Sodium (Senokot S) 2 tab PO BID [facility] Last Admin: 06/14/17 09:28 Dose: Not Given Silver Sulfadiazine (Silvadene) 0 gm TOP DAILY [facility] Last Admin: 06/14/17 15:25 Dose: Not Given Sodium Chloride (Flush - Normal Saline) 10 ml IVF PRN PRN PRN Reason: Saline Flush Last Admin: 06/11/17 20:09 Dose: 10 ml Witch Elvia/Glycerin (Tucks Pads) 1 each TOP TID [facility] Last Admin: 06/14/17 15:24 Dose: 1 each
--- NOTE | 2017-06-14 19:04 | PRG ---
DATE OF SERVICE: 06/14/2017 This is a 30-minute initial hospital visit note in which 30 minutes were spent reviewing the record, evaluation, examination of the patient, and formulation of plan. Greater than 50% of time was spent in counseling. CHIEF COMPLAINT: Right convexity acute subdural hematoma on Lovenox anticoagulation with history of severe ischemic cardiomyopathy. HISTORY OF PRESENT ILLNESS: I have reviewed the notes with my colleague, Phill Mercedes PA-C and cammy glass with its content. Mr. Chandler is a very ill 72-year-old man who had a seizure yesterday of right h emispheric semiology resulting in left hemiparesis. 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 This patient continues to have left-sided upper extremity deficit. Review of a head CT demonstrates a mul tiloculated acute subdural hematoma with no worrisome mass effect, stable on repeat head CT today. T he patient had been intubated and sedated upon her initial exam and now on our exam, the patient keep s his eyes closed, but he localizes in his right upper and bilateral lower extremities. He has flacc id paralysis in his left upper extremity. Again, presumably this is Wang's paralysis related to cere bral cortical irritation as a result of his blood products and I did not at all suspect that this is a mass effect issue. Obviously, the patient could have had a stroke; however, this is unlikely given that he was on anticoagulation already. IMPRESSION/REPORT/PLAN: I would advocate continuing to follow along with this patient. He is obviou sly quite ill. His prognosis is quite guarded in that regard due to his multiple medical issues. I would not recommend any surgical intervention certainly at this time. He is already on antiepileptic therapy and Neurology is already following along. DIAGNOSES: 1. 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 2. Ischemic cardiomyopathy.
[2017-06-15] MEDS: Propofol 1,000 MG/100 ML VIAL IV PRN ×3 (02:00→21:59)
[2017-06-15] MEDS: Dextrose 5 %-0.45 % NaCl 1,000 ML IV SCH (05:19)
[2017-06-15 05:45] LABS: ALT (SGPT) 11 U/L (8-55); AST (SGOT) 19 U/L (5-34); Albumin 2.1 g/dL (3.4-4.8); Alkaline Phosphatase 59 U/L (40-150); Anion Gap 7 mmol/L (10-20); BUN (Urea Nitrogen) 40 mg/dL (8.4-25.7); Bilirubin, Total 2.3 mg/dL (0.2-1.2); Calc. Creatinine Clearance 42 mL/min (70-130); Calcium 8.2 mg/dL (7.8-10.44); Carbon Dioxide 34 mmol/L (23-31); Chloride 95 mmol/L (98-107); Estimated GFR-MDRD 34; Globulin 4.2 g/dL (2.4-3.5); Glucose 92 mg/dL (83-110); Magnesium 1.8 mg/dL (1.6-2.6); Potassium 3.6 mmol/L (3.5-5.1); Protein, Total 6.3 g/dL (5.8-8.1); Sodium 132 mmol/L (136-145)
[2017-06-15 06:05] LABS: Band 4 % (5-11); Eosinophils 3 % (0-10); Hemoglobin 9.3 g/dL (14.0-18.0); Lymphocytes 7 % (21-51); MDiff Complete? YES; Mean Corpuscular HGB CONC 31.2 g/dL (32.0-36.0); Mean Corpuscular Hemoglobin 27.3 pg (27.0-31.0); Mean Corpuscular Volume 87.3 fl (80.0-94.0); Monocytes 9 % (0-10); Neutrophil 77 % (42-75); Platelet Count 291 thou/uL (130-400); RBC Distribution Width 18.1 % (11.5-14.5); Red Blood Cell (RBC) Count 3.42 mill/uL (4.70-6.10); White Blood Cell (WBC) Count 9.4 thou/uL (4.8-10.8)
[2017-06-15 08:06] LABS: Actual Bicarbonate (HCO3a) 29.4 mEq/L (22-26); Base Excess (BEa) 5.6 mEq/L (0 (+/-) 2.5); CO2 Tension 39.7 mmHg (35.0-45.0); Calcium, Ionized 1.1 mmol/L (1.12-1.30); Hematocrit-ABG 32.3 % (42.0-52.0); Hemoglobin (Hb) 8.9 g/dL (14.0-18.0); pH, Arterial 7.49 (7.35-7.45)
[2017-06-15 08:09] LABS: ALV-art Gradient 32.055 (0-20); Puncture Site RRA
[2017-06-15] MEDS: Carvedilol 6.25 MG TAB PO SCH ×2 (08:18→09:55)
[2017-06-15] MEDS: Polyethylene Glycol 3350 17 GM Packet PO SCH ×2 (08:19→09:39)
[2017-06-15] MEDS: Furosemide 80 MG TAB PO SCH (08:19)
[2017-06-15] MEDS: Senokot S 8.6-50 MG TAB PO SCH ×3 (08:20→21:10)
[2017-06-15] MEDS: Citrucel 500 MG TAB PO SCH ×2 (08:52→21:00)
--- NOTE | 2017-06-15 09:10 | PRG ---
DATE OF SERVICE: 06/15/2017 This is 15 minute subsequent visit note in which 15 minutes were spent in review the imaging record, evaluation and examination of the patient, and formulation of a plan. Greater than 50% of the time w as spent in counseling on Austin Chandler. SUBJECTIVE: I saw Mr. Chandler this morning. It is evident on my exam this morning that he has evidenc e of bilateral eyelid twitching and left upper extremity motor muscle twitching. I suspect he is hav ing clinical and subclinical seizures. He is likely explaining his difficulty to improve in regards to his left upper extremity and his level of alertness. I have discussed his case with Dr. Marlen cowan, our neurologist and he will be making adjustments in regards to his antiepileptic therapy. IMPRESSION: 1. Right acute subdural hematoma. 2. Seizure.
--- NOTE | 2017-06-15 09:10 | RAD ---
AP VIEW CHEST: HISTORY: Ventilator-dependent patient. FINDINGS: AP view chest is obtained on 06/15/17. Comparison is made to previous exam from 06/14/17. AP view chest demonstrates cardiomegaly. An intracardiac defibrillator is seen. Nasogastric and end otracheal tubes are again seen. Some pulmonary vascular congestion is noted. Small bilateral pleura l effusions seen. IMPRESSION: Cardiomegaly as well as pulmonary vascular congestion. Radiographic appearance of the chest is stabl e and unchanged. POS: OFF
[2017-06-15] MEDS: Witch Hazel-Glycerin 1 EACH JAR TOP SCH ×3 (09:23→22:01)
[2017-06-15] MEDS: levETIRAcetam In NaCl (Iso-Os) 1,000 MG in Premix Bag 1 BAG IVPB SCH ×4 (09:50→21:52)
--- NOTE | 2017-06-15 11:46 | PRG ---
DATE OF SERVICE: 06/15/2017 SUBJECTIVE: Mr. Chandler remains unresponsive on the ventilator. The nurse initially had some concern about that the defibrillator was not capturing, amplitude of the QRS was low in that lead. PHYSICAL EXAMINATION: VITAL SIGNS: His blood pressure is 110/60, pulse 60 and irregular. LUNGS: Clear. CARDIAC: Irregular, irregular. ABDOMEN: Soft, nontender. EXTREMITIES: Warm and dry. ASSESSMENT: 1. Congestive heart failure, severe and advanced. 2. Chronic atrial fibrillation. 3. Intracranial bleed. 4. Gastrointestinal bleed. PLAN: Continue supportive care. Prognosis appears poor. We will stop digoxin and carvedilol at thi s time due to relatively low heart rates. I would recommend discussing code status with family if available.
--- NOTE | 2017-06-15 12:26 | EKG ---
Test Reason : Blood Pressure : / mmHG Vent. Rate : 072 BPM Atrial Rate : 241 BPM P-R Int : 000 ms QRS Dur : 102 ms QT Int : 436 ms P-R-T Axes : 000 000 188 degrees QTc Int : 477 ms Atrial fibrillation with premature ventricular or aberrantly conducted complexes Inferior infarct , age undetermined ST-T wave changes high laterally may suggest ischemia. Abnormal ECG No previous ECGs available Confirmed by BRIAN VAUGHN ([id number]) on 06/15/2017 12:26:33 PM Referred By: AMBERLY Confirmed By:BRIAN VAUGHN
--- NOTE | 2017-06-15 14:04 | PRG ---
DATE OF SERVICE: 06/15/2017 SERVICE: Pulmonary Medicine. INTERVAL HISTORY: The patient possibly was having some seizure type activity. This is no longer ongoing on. Neurology has seen him today. They are suggesting that after today, we can wake him up and see whether or not he has any additional activity, consider him for extubation. The patient cannot provide any additional elements of the history as he is currently under the influence of some sedating medications. Otherwise, there were no overnight events. PHYSICAL EXAMINATION: VITAL SIGNS: Afebrile, pulse 80, blood pressure 163/92, respirations 18, saturation 99% on 30% FiO2. GENERAL: Patient is intubated and sedated. HEENT: Normocephalic, atraumatic. Sclerae are white, conjunctivae pink. Oral mucosa is moist without lesions. LUNGS: Decreased air entry. No prolonged expiratory phase or wheezing is appreciated. HEART: Normal rate, regular. ABDOMEN: Soft, nontender, nondistended, bowel sounds positive. MUSCULOSKELETAL: No cyanosis or clubbing. No pitting in the bilateral lower extremities. LABORATORY DATA: WBC 9.4, hemoglobin 9.3, platelets 291,000. INR 1.3. PH 7.49 , pCO2 of 39.7, pO2 83. Creatinine 2.29, which is trending upward, BUN 40. Basic metabolic profile is otherwise unremarkable. Liver function studies are stable. Urinalysis is unremarkable. Central line blood cultures negative to date. IMAGING: Chest x-ray demonstrates endotracheal tube is in decent position. There is an enteric catheter coursing below the level of the diaphragm. There is cardiomegaly and pulmonary vascular congestion though. This may be a chronic radiographic finding because of how frequently he remains volume overloaded. The right hemidiaphragm is slightly elevated compared to the left. ASSESSMENT: 1. Acute on chronic systolic and diastolic heart failure, currently euvolemic. 2. Acute kidney injury on chronic kidney disease, resolved. 3. Seizure disorder. 4. Subdural hematoma. 5. Combined metabolic and respiratory alkalosis, stable. PLAN: We will continue to providing supportive care. The patient is on minimal vent support and still breathes over the ventilator slightly. As such, no additional modification we have made ventilator today. Tomorrow morning, we will provide him with a good long sedation holiday. If he wakes up smoothly, extubation will be considered. Critical care time: 30 minutes. MTDD
[2017-06-15] MEDS: Sodium Chloride 0.9% 1,000 ML IV SCH (14:05)
--- NOTE | 2017-06-15 20:30 | PDOC.PN ---
- Subjective Encounter Start Date: 06/15/17 Encounter Start Time: 14:00 Patient seen and examined. Intubated on Vent. Keppra dose increased due to focal seizures. No overnight events - Objective Resuscitation Status: Resuscitation Status FULL:Full Resuscitation MAR Reviewed: Yes Vital Signs & Weight: Vital Signs (12 hours) Temp Pulse Resp BP 06/15/17 18:00 26 H 06/15/17 17:00 97.7 F 06/15/17 16:00 24 H 06/15/17 14:34 66 97/63 06/15/17 14:00 19 06/15/17 12:00 97.8 F 17 06/15/17 10:35 71 06/15/17 10:00 16 06/15/17 09:55 107/64 Weight Admit Weight 260 lb 4.8 oz Weight 226 lb 6.636 oz Most Recent Monitor Data Heart Rate from ECG 68 NIBP 111/62 NIBP BP-Mean 71 Respiration from ECG 30 SpO2 98 I&O: 06/14/17 06/15/17 06/16/17 06:59 06:59 06:59 Intake Total 1821 1613 1246 Output Total 930 835 342 Balance 891 778 904 Result Diagrams: 06/15/17 05:10 06/15/17 05:10 Additional Labs: Accuchecks 06/15/17 06/15/17 06/15/17 17:01 10:51 05:12 POC Glucose 97 106 93 06/15/17 02:12 POC Glucose 84 EKG Reviewed by me: Yes (Tele Afib) Phys Exam - Physical Examination Intubated/sedated on Vent Respiratory: no wheezing, no rhonchi Coarse BS B/L Cardiovascular: RRR, no rub Gastrointestinal: soft, positive bowel sounds Musculoskeletal: edema present Dx/Plan - Plan DVT proph w/SCDs IMPRESSION: 1. Acute intracranial bleed with seizure - NSG following, on Keppra 2. Acute [facility] resp [facility] # [facility] 3. Acute on chronic systolic heart failure exacerbation - euvolemic 4. NAHUN on CKD 3 - improving 5. Chronic venous stasis with ulcerations - wound care following 6. Afib with RVR - rate controlled - Anticoag dced due to bleeding. 7. HTN 8. Hypokalemia/Hyperkalemia - resolved PLAN: * NSG following * Keppra dose increased * Cont current meds as below * Cardiology/Nephro/Critical care following * AM labs * cont to monitor * Cont CCU monitoring Review of Systems - Review of Systems Other: Cannot obtain due to sedation - Medications/Allergies Allergies/Adverse Reactions: Allergies Allergy/AdvReac Type Severity Reaction Status Date / Time cortisone Allergy Unknown Verified 06/06/17 12:08 codeine Allergy Verified 06/06/17 12:08 morphine Allergy Verified 06/06/17 12:08 Penicillins Allergy Verified 06/06/17 12:08 propoxyphene Allergy Verified 06/06/17 12:08 Medications: Current Medications Acetaminophen (Tylenol) 650 mg PO Q4H PRN PRN Reason: Headache/Fever or Pain Acetaminophen (Tylenol) 650 mg ID Q6H PRN PRN Reason: Fever > 101 or Mild Pain Albuterol/Ipratropium (Duoneb) 3 ml NEB [id number] PRN PRN Reason: SOB &/or Wheezing Bisacodyl (Dulcolax) 10 mg ID DAILYPRN PRN PRN Reason: Constipation Famotidine (Pepcid) 20 mg SLOW IVP 2100 [facility] Furosemide (Lasix) 80 mg PO DAILY-AC [facility] Last Admin: 06/15/17 08:19 Dose: 80 mg Guaifenesin/Dextromethorphan (Robitussin Dm) 10 ml PO Q4H PRN PRN Reason: Cough Last Admin: 06/10/17 09:50 Dose: 10 ml Nicardipine HCl 25 mg/ Sodium (Chloride) 250 mls @ 0 mls/hr IVPB INF PRN; Protocol; Titrate PRN Reason: SBP > 150 OR DBP >90 Fentanyl (Fentanyl Cadd) 250 mls @ 0 mls/hr IVPB INF [facility]; Titrate PRN Reason: Protocol Stop: 07/13/17 18:55 Fentanyl Citrate (Fentanyl Bolus) 250 mls @ 0 mls/hr IVPB PRN PRN; As Directed PRN Reason: Breakthrough pain Stop: 07/13/17 18:55 Levetiracetam 1,000 mg/ Device 100 mls @ 200 mls/hr IVPB BID [facility] Last Admin: 06/15/17 09:50 Dose: 100 mls Sodium Chloride (Normal Saline 0.9%) 1,000 mls @ 40 mls/hr IV .Q24H [facility] Last Admin: 06/15/17 14:05 Dose: 1,000 mls Labetalol HCl (Normodyne) 10 mg SLOW IVP Q2H PRN PRN Reason: SBP > 150 or DBP > 90 Lorazepam (Ativan) 2 mg SLOW IVP Q15MIN PRN PRN Reason: Seizures Lorazepam (Ativan) 2 mg SLOW IVP Q2H PRN PRN Reason: Anxiety to achieve Haynes 2-3 Stop: 07/13/17 18:55 Methylcellulose (Citrucel) 500 mg PO BID [facility] Last Admin: 06/15/17 08:52 Dose: Not Given Mineral Oil/White Petrolatum (Lacri-Lube Ointment) 0 gm EA EYE PRN PRN PRN Reason: Dry Eyes Ondansetron HCl (Zofran) 4 mg IVP Q6H PRN PRN Reason: Nausea/Vomiting Last Admin: 06/06/17 13:20 Dose: 4 mg Polyethylene Glycol (Miralax) 17 gm PO DAILY [facility] Last Admin: 06/15/17 09:39 Dose: Not Given Propofol (Diprivan) 1,000 mg IV INF PRN; Protocol PRN Reason: TO ACHIEVE HAYNES SCORE 2-3 Stop: 07/13/17 18:55 Last Admin: 06/15/17 09:54 Dose: 1,000 mg Senna/Docusate Sodium (Senokot S) 2 tab PO BID [facility] Last Admin: 06/15/17 09:39 Dose: Not Given Silver Sulfadiazine (Silvadene) 0 gm TOP DAILY [facility] Last Admin: 06/15/17 08:52 Dose: Not Given Sodium Chloride (Flush - Normal Saline) 10 ml IVF PRN PRN PRN Reason: Saline Flush Last Admin: 06/11/17 20:09 Dose: 10 ml Witch Elvia/Glycerin (Tucks Pads) 1 each TOP TID [facility] Last Admin: 06/15/17 14:07 Dose: 1 each
[2017-06-15] MEDS: Famotidine/PF 20 mg/2ml Vial SLOW IVP SCH (21:51)
[2017-06-16 05:30] LABS: ALT (SGPT) 11 U/L (8-55); AST (SGOT) 20 U/L (5-34); Alkaline Phosphatase 60 U/L (40-150); Anion Gap 13 mmol/L (10-20); BUN (Urea Nitrogen) 44 mg/dL (8.4-25.7); Bilirubin, Total 2.1 mg/dL (0.2-1.2); Calc. Creatinine Clearance 37 mL/min (70-130); Calcium 8.1 mg/dL (7.8-10.44); Carbon Dioxide 29 mmol/L (23-31); Chloride 96 mmol/L (98-107); Estimated GFR-MDRD 30; Globulin 4.3 g/dL (2.4-3.5); Glucose 97 mg/dL (83-110); Magnesium 1.6 mg/dL (1.6-2.6); Potassium 3.5 mmol/L (3.5-5.1); Protein, Total 6.3 g/dL (5.8-8.1); Sodium 134 mmol/L (136-145)
[2017-06-16 05:53] LABS: Anisocytosis SLIGHT = 6-15 cells (100X) (0-5/hpf); Band 3 % (5-11); Eosinophils 2 % (0-10); Hemoglobin 9.1 g/dL (14.0-18.0); Lymphocytes 2 % (21-51); MDiff Complete? YES; Mean Corpuscular HGB CONC 30.9 g/dL (32.0-36.0); Mean Corpuscular Hemoglobin 27.3 pg (27.0-31.0); Mean Corpuscular Volume 88.3 fl (80.0-94.0); Monocytes 3 % (0-10); Neutrophil 90 % (42-75); PLT Morphology Comment Appears Adequate; Platelet Count 318 thou/uL (130-400); RBC Distribution Width 17.9 % (11.5-14.5); Red Blood Cell (RBC) Count 3.35 mill/uL (4.70-6.10); Target Cells SLIGHT = 2-5 cells (100X) (0-1/hpf); White Blood Cell (WBC) Count 17.5 thou/uL (4.8-10.8)
[2017-06-16] MEDS: Polyethylene Glycol 3350 17 GM Packet PO SCH (09:16)
[2017-06-16] MEDS: Citrucel 500 MG TAB PO SCH ×2 (09:16→23:27)
[2017-06-16] MEDS: Senokot S 8.6-50 MG TAB PO SCH ×2 (09:16→21:01)
[2017-06-16] MEDS: levETIRAcetam In NaCl (Iso-Os) 1,000 MG in Premix Bag 1 BAG IVPB SCH ×4 (09:16→20:57)
[2017-06-16] MEDS: Witch Hazel-Glycerin 1 EACH JAR TOP SCH ×3 (09:17→21:00)
--- NOTE | 2017-06-16 12:34 | PRG ---
DATE OF SERVICE: 06/16/2017 This is a 25-minute subsequent visit note in which 25 minutes were spent in review of the imaging rec ord, evaluation and examination of the patient, and formulation of a plan. Greater than 50% of time was spent in counseling on Austin Chandler. I am seeing Mr. Chandler again in followup. Yesterday we conc erned about continuation of seizure discharges. I spoke with Dr. Shukla after my evaluation and the de cision was made to increase his Keppra to 1000 mg twice daily. He is now off sedation and with any s timulation, it is evident that he has left upper extremity twitching. Neurology colleagues will cont inue to work toward satisfactory control of his seizures. I have also discussed his care with Dr. Hanna stoddard this morning that I should note he does have an elevated white count from 9.4 yesterday to 17.5 today, but he is afebrile this morning. I have spoken with his family at length this morning. I wo uld not recommend any surgical intervention, but continued attempt to control of his seizure discharg es.
[2017-06-16] MEDS: Propofol 1,000 MG/100 ML VIAL IV PRN ×3 (12:42→20:57)
[2017-06-16] MEDS: Sodium Chloride 0.9% 1,000 ML IV SCH (12:43)
--- NOTE | 2017-06-16 12:52 | PDOC.CTH ---
Cardiology Progress Note - Subjective Remains intubated. No new issues. - Objective Vital Signs Temp Pulse Resp BP Pulse Ox 06/16/17 11:04 72 116/69 06/16/17 06:58 97.5 F L 73 19 100 06/16/17 06:00 19 06/16/17 04:00 98.0 F 21 H 06/16/17 02:00 18 Admit Weight 260 lb 4.8 oz Weight 225 lb 8.526 oz 06/15/17 06/16/17 06/17/17 06:59 06:59 06:59 Intake Total 1613 2291 Output Total 835 512 Balance 778 1779 - Physical Examination General/Neuro: other: (Intubated) Neck: no JVD present Lungs: other: (Coarse bilat.) Heart: other: (Irreg) Abdomen: NT/ND Extremities: + edema B (1+) - Telemetry Telemetry Rhythm: Afib - Labs Result Diagrams: 06/16/17 04:25 06/16/17 04:25 Troponin/CKMB CK-MB (CK-2) 2.2 ng/mL (0-6.6) 06/13/17 16:54 Troponin I 0.034 ng/mL (< 0.028) H 06/13/17 20:07 - Assessment/Plan 1. Acute on chrnoic systolic heart failure. 2. Severe advanced Cardiomyopathy 3. Chronic afib 4. Intracraneal bleed 5. GI bleed. PLAN: - Supportive care. - No new recs. - Patient is severely ill and would not be unexpected.
--- NOTE | 2017-06-16 12:59 | PRG ---
DATE OF SERVICE: 06/16/2017 SERVICE: Pulmonary Medicine. INTERVAL HISTORY: The patient is doing fine from a respiratory standpoint. That being said, this morning I walked in on a propofol holiday, he is twitching his left arm and essentially is completely unresponsive. My suspicion is that he is having clinically identifiable seizure, which is ongoing. He cannot provide additional elements of the history. Otherwise, there are no events overnight. PHYSICAL EXAMINATION: VITAL SIGNS: Afebrile, pulse 72, blood pressure 116/69, respirations 19, and saturation 100% on room air. GENERAL: The patient is encephalopathic. HEENT: Normocephalic, atraumatic. Nasotracheal tube is inplace. Normocephalic, atraumatic. Sclerae are white, conjunctivae pink. Oral and nasal mucosa is moist without lesions. LUNGS: Excellent air entry. No prolonged expiratory phase are present. Rhonchi are identified. No wheezing or crackles. HEART: Normal rate, regular. ABDOMEN: Soft, nontender, nondistended. Bowel sounds positive. MUSCULOSKELETAL: No cyanosis or clubbing. No pitting in the bilateral lower extremities. LABORATORY DATA: WBC 17.5, hemoglobin 9.1, platelets 318,000. Neutrophil count has increased, but the band count is stable at 3%. INR 1.3. Creatinine 2.55 and gently uptrending. Basic metabolic profile, liver function studies are otherwise unremarkable. Total bilirubin continues to trend downward 2.1. Blood cultures is negative to date. ASSESSMENT: 1. Acute on chronic systolic and diastolic heart failure, currently euvolemic. 2. Acute kidney injury on chronic kidney disease. 3. Status epilepticus. 4. Subdural hematoma. 5. Encephalopathy secondary to seizure versus anoxic brain injury. PLAN: He is having ongoing seizure activity. As such, we are going to really increase our propofol for the next 48 hours. Antiepileptic drugs per Neurosurgery, but I think that we may need to add additional agents. He does have a cuff leak in the endotracheal tube and this will need to be exchanged. We will try to exchange him for an oral tube. Pulmonary Critical Care will continue to follow. Critical care time: 30 minutes. MTDD
[2017-06-16] MEDS ORDERED: Magnesium 2 GM/NS 0.9% 50 ML 2 GM in Premix Bag 1 BAG IVPB SCH (13:00)
--- NOTE | 2017-06-16 14:52 | PRG ---
DATE OF SERVICE: 06/16/2017 SUBJECTIVE: The patient is seen and examined at the bedside. He is in CCU, bed 9. He is intubated and sedated. He is getting tube feeding at 35 mL per hour. There was no any unexpected events overn ight. OBJECTIVE: VITAL SIGNS: Blood pressure is 140/68, pulse is 85, respiratory rate is 27, O2 saturation is 96%. Marnie fraga is on the ventilator and his tidal volume is 470, pressure support is 10, PEEP is 5, frequency is 9 . LUNGS: Breath sounds diminished at both bases. HEART: S1, S2 normal, no S3, no S4. ABDOMEN: Soft, nondistended. Bowel sounds are present. There are two areas with skin opened in the lower abdomen that is covered by dressing. Also, there are multiple areas on his lower extremities which are covered by the dressings. I did not examine those areas since the dressing were placed, bu t according to the nurse, there are some ulcerations. The wound care is taking care those. LABORATORY DATA: Showed white count of 17.5, hemoglobin 9.1, hematocrit 29.6, platelet count is 318, 90% of neutrophils. Sodium of 134, potassium 3.5, chloride 96, CO2 29, BUN 44, creatinine 2.55. Th e rest of chemistry within normal limits. Total bilirubin is 2.1, albumin 2.0. IMPRESSION: 1. Acute intracranial bleed with seizures and the patient is on Keppra. Neurosurgery is following. 2. Acute hypoxic respiratory failure on mechanical ventilation. 3. Acute on chronic systolic heart failure exacerbation. 4. Chronic venous stasis with ulcerations. Wound care team on board. 5. Atrial fibrillation with rapid ventricular response, rate controlled and anticoagulants were stop ped due to bleeding. 6. Hypertension. 7. Hypokalemia/hyperkalemia, resolved. PLAN AND DISCUSSION: The patient was just increased on his Keppra and Dr. Le was on to give him more propofol to stop his seizures or consider adding additional agent to control his seizures. He is tolerating his feeding at 35. His white cell count went up. Today, I am going to obtain chest x- ray. UA and the blood cultures x2 to rule out any possible source of infection. We will continue inc reased dose of Keppra 1000 mg IV piggyback q.12 hours. We will continue close monitoring in the unit . We will obtain a.m. labs, and Cardiology, Nephrology and Critical Care are following along with In ternal Medicine.
--- NOTE | 2017-06-16 15:20 | OP ---
DATE OF SERVICE: 06/16/2017 SERVICE: Pulmonary Medicine. PROCEDURE: Endotracheal intubation. CONSENT: Procedure was performed urgently. There was a significant air leak in the previous set up. STAFF PHYSICIAN: Jose Le M.D. MEDICATIONS USED: Propofol 50 mg IV push. PREPROCEDURE DIAGNOSES: 1. Acute hypoxic respiratory failure. 2. Status epilepticus. POSTPROCEDURE DIAGNOSES: 1. Acute hypoxic respiratory failure. 2. Status epilepticus. DESCRIPTION OF PROCEDURE: Vital sign monitoring was accomplished by noninvasive hemodynamic monitoring, pulse oximetry, and telemetry. In a supine position, the patient was preoxygenated on mechanical ventilation with the existing nasotracheal tube. He was maintained with saturations of 100%. After induction of anesthesia, a GlideScope was inserted through the mouth offering clear identification of the posterior oropharynx and laryngeal structures with a grade I view. An endotracheal tube was passed just anterior to the existing tube in the supraglottic space that was coming from the nose. The existing tube was deflated and minimally retracted, so as to tamponade the bleeding coming from the nose. The new tube from the mouth was advanced smoothly through the vocal cords under observation with the glide scope. Placement was confirmed by condensation in the endotracheal tube, colorimetric capnography, and bi axillary chest auscultation. The endotracheal tube was secured at 25 cm , measured at the teeth. The patient was placed back on mechanical ventilation with good return of volumes. Post-procedure chest x-ray revealed decent location for the endotracheal tube within the trachea. ESTIMATED BLOOD LOSS: None from the procedure. COMPLICATIONS: None. MTDD
--- NOTE | 2017-06-16 15:31 | RAD ---
CHEST 1 VIEW: Date: 06/16/17 COMPARISON: 06/15/17. HISTORY: Respiratory distress. Ventilated patient. Pneumonia. FINDINGS: Stable left-sided defibrillator. Endotracheal and nasogastric tube are demonstrated. Distal tip of na sogastric tube is not seen. Heart is enlarged. There are bibasilar opacities, similar to the prior ex amination. Findings may be due to volume overload or pneumonia. Continued surveillance is recommended . There is no pneumothorax. IMPRESSION: Bibasilar opacities as above. POS: [facility]
[2017-06-16 16:17] LABS: Bilirubin Small (Negative); Blood, Urine Negative (Negative); Glucose, Urine (Dipstick) Negative (Negative); Leukocyte Small (Negative); Nitrite Negative (Negative); Protein, Urine (Dipstick) Negative (Neg-Trace); Specific Gravity, Urine 1.019 (1.002-1.036)
[2017-06-16 16:18] LABS: Bacteria/HPF None Seen HPF (None Seen); Pathc Cast-AUWi Flag 2.03 (0-2.49); Squamous Epithelial 0-3 HPF (0-3)
[2017-06-16 16:30] LABS: Clarity Clear (Clear); Yeast-AUWi Flag 35.5 (0-25.0)
[2017-06-16 16:38] LABS: RBC/HPF 0-3 HPF (0-3)
[2017-06-16 16:39] LABS: Hyaline Casts/LPF 0-3 HYALINE CAST LPF (0-3 Hyaline); Yeast-All Forms None Seen HPF (None Seen)
[2017-06-16] MEDS: Famotidine/PF 20 mg/2ml Vial SLOW IVP SCH (20:57)
[2017-06-17] MEDS: Propofol 1,000 MG/100 ML VIAL IV PRN ×6 (01:01→23:20)
[2017-06-17 06:22] LABS: ALT (SGPT) 8 U/L (8-55); AST (SGOT) 18 U/L (5-34); Albumin 1.9 g/dL (3.4-4.8); Alkaline Phosphatase 66 U/L (40-150); Anion Gap 14 mmol/L (10-20); BUN (Urea Nitrogen) 47 mg/dL (8.4-25.7); Bilirubin, Total 2.1 mg/dL (0.2-1.2); Calc. Creatinine Clearance 36 mL/min (70-130); Calcium 7.9 mg/dL (7.8-10.44); Carbon Dioxide 26 mmol/L (23-31); Chloride 98 mmol/L (98-107); Estimated GFR-MDRD 29; Globulin 4.2 g/dL (2.4-3.5); Glucose 96 mg/dL (83-110); Potassium 3.2 mmol/L (3.5-5.1); Protein, Total 6.1 g/dL (5.8-8.1); Sodium 135 mmol/L (136-145)
[2017-06-17 06:29] LABS: Band 2 % (5-11); Eosinophils 1 % (0-10); Hemoglobin 8.6 g/dL (14.0-18.0); Hypochromia SLIGHT = 6-15 cells (100X) (0-5/hpf); Lymphocytes 3 % (21-51); MDiff Complete? YES; Mean Corpuscular Hemoglobin 26.5 pg (27.0-31.0); Mean Corpuscular Volume 88.2 fl (80.0-94.0); Mean Platelet Volume 8.1 fL (7.4-10.4); Monocytes 2 % (0-10); Neutrophil 91 % (42-75); PLT Morphology Comment Appears Adequate; Platelet Count 359 thou/uL (130-400); RBC Distribution Width 18.1 % (11.5-14.5); Red Blood Cell (RBC) Count 3.25 mill/uL (4.70-6.10); Target Cells SLIGHT = 2-5 cells (100X) (0-1/hpf); White Blood Cell (WBC) Count 16.2 thou/uL (4.8-10.8)
[2017-06-17] MEDS: Senokot S 8.6-50 MG TAB PO SCH ×2 (08:59→22:20)
[2017-06-17] MEDS: Citrucel 500 MG TAB PO SCH ×2 (08:59→22:19)
[2017-06-17] MEDS: Polyethylene Glycol 3350 17 GM Packet PO SCH (08:59)
[2017-06-17] MEDS: levETIRAcetam In NaCl (Iso-Os) 1,000 MG in Premix Bag 1 BAG IVPB SCH ×4 (09:42→22:19)
[2017-06-17] MEDS: Witch Hazel-Glycerin 1 EACH JAR TOP SCH ×3 (09:42→22:20)
[2017-06-17] MEDS ORDERED: Potassium Chloride 20 MEQ/100 ML PREMIX BAG IVPB SCH (11:30)
[2017-06-17] MEDS ORDERED: Potassium Chloride 20 MEQ in Sodium Chloride 0.9% 250 ML 250 ML IVPB SCH (12:30)
--- NOTE | 2017-06-17 12:33 | PDOC.CTH ---
Cardiology Progress Note - Subjective No new issues. Remains sedated and intubated. - Objective Vital Signs Temp Pulse Resp BP Pulse Ox 06/17/17 12:00 20 06/17/17 11:00 97.8 F 06/17/17 10:00 19 06/17/17 09:44 76 151/77 H 06/17/17 08:00 97.6 F 61 19 98 06/17/17 07:00 97.2 F L 06/17/17 06:00 16 06/17/17 04:00 97.3 F L 17 06/17/17 02:38 94 06/17/17 02:00 15 Admit Weight 260 lb 4.8 oz Weight 227 lb 4.745 oz 06/16/17 06/17/17 06/18/17 06:59 06:59 06:59 Intake Total 2291 2779.3 Output Total 512 439 300 Balance 1779 2340.3 -300 - Physical Examination General/Neuro: other: (intubated) Neck: no JVD present Lungs: unlabored respirations Heart: RRR Abdomen: NT/ND Extremities: + edema B (trace) - Telemetry Telemetry Rhythm: NSR - Labs Result Diagrams: 06/17/17 05:10 06/17/17 05:10 Troponin/CKMB CK-MB (CK-2) 2.2 ng/mL (0-6.6) 06/13/17 16:54 Troponin I 0.034 ng/mL (< 0.028) H 06/13/17 20:07 - Assessment/Plan 1. Acute on chrnoic systolic heart failure. 2. Severe advanced Cardiomyopathy 3. Chronic afib 4. Intracraneal bleed 5. GI bleed. . 6. NAHUN PLAN: - Supportive care. - Patient is severely ill and would not be unexpected. - Consider hospice care for end of life.
--- NOTE | 2017-06-17 13:06 | PRG ---
DATE OF SERVICE: 06/17/2017 This is a 15 minutes subsequent visit note in which 15 minutes were spent in review of the imaging re cord, evaluation and examination of the patient, and formulation of a plan. Greater than 50% time wa s spent in counseling on Mr. Austin Chandler, date of 1945. Mr. Chandler remains sedated this morning and with him on propofol, I really did not get much of neurolo gical response as I see no further clinical seizure activity with him on sedation. We had two CTs de monstrating stability in his intracranial bleed. I think the biggest issue at this point is as his s edation is weaned, is controlling the seizures, and I have emphasized this with the nursing team and that should the seizures continued to be a problem that this can be discussed with Neurology. I will sign off at this point from a neurosurgical standpoint. We will arrange followup in my clinic with a repeat head CT in approximately 1 month. DIAGNOSES: 1. Right acute subdural hematoma, stable on imaging. 2. Seizure related to #1.
[2017-06-17] MEDS: Sodium Chloride 0.9% 1,000 ML IV SCH ×4 (13:24→22:25)
--- NOTE | 2017-06-17 14:00 | PRG ---
DATE OF SERVICE: 06/17/2017 SERVICE: Pulmonary Medicine. INTERVAL HISTORY: The patient is doing really well from a respiratory standpoint. He is on minimal oxygen support. He cannot provide me any additional elements of the history because of having heavily sedated status. Otherwise, there have been no interval changes in his condition. He continues to have some diarrhea and a rectal tube was placed. C. diff antigen was positive, but the toxin is currently pending. PHYSICAL EXAMINATION: VITAL SIGNS: Afebrile. Pulse 73, blood pressure 96/58, respirations 9, saturation 99% on room air. GENERAL: The patient is intubated and sedated. HEENT: Normocephalic, atraumatic. Sclerae are white, conjunctivae pink. Oral and nasal mucosa is moist without lesions. LUNGS: Decent air entry. There are some rhonchi present. Otherwise, no crackles or wheezes are appreciated. HEART: Normal rate, regular. ABDOMEN: Soft. Nontender, nondistended. Bowel sounds positive. MUSCULOSKELETAL: No cyanosis or clubbing. There is no longer pitting throughout. GENITOURINARY: Vazquez catheter in place. NEUROLOGIC: Grossly nonfocal. LABORATORY DATA: WBC is stable at 16.2, hemoglobin 8.6. Platelets 359,000. Neutrophil count is stable at 91% and the band count has fallen gently to 2. Potassium 3.2. Creatinine 2.61, which is gently up trending and stabilizing. BUN is stable. Basic metabolic profile and liver function studies are otherwise unremarkable. Urinalysis is unremarkable. Clostridium diff antigen is positive. Toxin is currently pending. IMAGING STUDIES: Chest x-ray demonstrates bibasilar opacifications. ASSESSMENT: 1. Acute hypoxic respiratory failure. 2. Status epilepticus. 3. Metabolic encephalopathy secondary to #2. 4. Acute kidney injury on chronic kidney disease. 5. Subdural hematoma. 6. Diarrhea with possible Clostridium difficile infection. PLAN: I will leave him intubated and heavily sedated for the next 24 hours. Tomorrow morning, we will awake him up. If he is without seizure activity, CPAP trial and extubation will be considered. I will empirically initiate him on antibiotics for possible C. diff infection. I will repeat chest x-ray in the morning and make certain that no infiltrate is fluffing out. If he has a fever, we will certainly perform a panculture. Currently, there is not significant sputum coming from the endotracheal tube. Critical care time: 30 minutes. MTDD
--- NOTE | 2017-06-17 14:06 | PRG ---
DATE OF SERVICE: 06/17/2017 SUBJECTIVE: The patient was seen and examined at the bedside. He is intubated and sedated with prop ofol. The amount of propofol is increased to sedate him completely since he had some seizure activit y despite being on Keppra IV. He is on a ventilator and his tidal volume is 430. His FIO2 is 23%, P EEP is 5 and pressure support is 10. He has a Vazquez in, which has dark urine. He has a rectal tube. He has a NG tube. PHYSICAL EXAMINATION: VITAL SIGNS: Blood pressure is 138/74, pulse is 80, pulse oximetry is 97% and respiratory rate is 19 . LUNGS: Breath sounds diminished at both bases, some crackles at the right base. No wheezing. HEART: S1, S2 normal, no S3, S4. ABDOMEN: Soft, nondistended. There are several areas on his lower extremities and lower part of the abdomen, which showed some open skin with some ulcerations. NEUROLOGIC: Postponed since he is sedated deeply. LABORATORY DATA: Showed white count of 16.2, hemoglobin 8.6, hematocrit 28.6, platelet count is 359, 000 and neutrophils 91%. Sodium is 135, potassium 3.2, chloride 98, CO2 26, BUN 47, creatinine 2.61, total bilirubin 2.1, albumin 1.9. Glucose is 85-121. MICROBIOLOGY: C. difficile antigen and toxins preliminary report is still pending. Blood cultures n o growth so far x2. IMPRESSION: 1. Acute intracranial bleed with seizures followed by Neurosurgery, stable on CT. 2. Acute hypoxic respiratory failure on mechanical ventilation. His tube was changed yesterday by Elvin Le because of the leak. 3. Acute on chronic systolic heart failure exacerbation. 4. Hypotension. The patient requires vasopressors. 5. Chronic venous stasis with ulcerations. 6. 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 7. Residuals on his tube feeding. 8. Hypokalemia/hyperkalemia, resolved. 9. Right lower lobe infiltrate suspicious for pneumonia, ventilator related. We talked to Dr Kunal jolley, critical care to discuss whether he feels like this patient needs to be on empiric coverage for po ssible infectious etiology of this infiltrate in the right lower lobe and for hypokalemia, he will be replaced with KCl. With the multiple organ failure, at this point, his creatinine is gradually sammy g up. His kidney function is getting worse. His urine output is decreasing, it was around 400 for t he last 24 hours and around 500mg for the previous 24 hours and despite multiple efforts, his general condition is getting gradually worse and prognosis is very poor.
[2017-06-17] MEDS: Vancomycin HCl 25 MG/ML Oral PO SCH (14:43)
[2017-06-17] MEDS ORDERED: Vancomycin HCl 1.5 GM in Sodium Chloride 0.9% 250 ML 300 ML IVPB SCH (21:30)
[2017-06-17] MEDS ORDERED: metroNIDAZOLE 500 MG in Premix Bag 1 BAG IVPB SCH (22:15)
[2017-06-17] MEDS: Famotidine/PF 20 mg/2ml Vial SLOW IVP SCH (22:19)
[2017-06-17] MEDS: Aztreonam 1 GM, Admixture Fee 1 EACH in Sterile Water 10 ML SLOW IVP SCH (22:23)
[2017-06-18] MEDS: Dextrose 5 % And 0.9 % NaCl 1,000 ML IV SCH ×2 (02:00→22:14)
[2017-06-18] MEDS ORDERED: Dextrose 5% in Water 1,000 ML IV PRN (03:46)
[2017-06-18] MEDS: Propofol 1,000 MG/100 ML VIAL IV PRN (03:51)
[2017-06-18] MEDS: Dextrose 50% Abboject 50 ML SYRINGE IVP PRN (03:51)
[2017-06-18 05:26] LABS: Band 10 % (5-11); Eosinophils 1 % (0-10); Hemoglobin 9.9 g/dL (14.0-18.0); Hypochromia SLIGHT = 6-15 cells (100X) (0-5/hpf); Lymphocytes 3 % (21-51); MDiff Complete? YES; Mean Corpuscular HGB CONC 30.8 g/dL (32.0-36.0); Mean Corpuscular Hemoglobin 26.9 pg (27.0-31.0); Mean Corpuscular Volume 87.5 fl (80.0-94.0); Mean Platelet Volume 10.7 fL (7.4-10.4); Monocytes 2 % (0-10); Neutrophil 84 % (42-75); Platelet Count 320 thou/uL (130-400); RBC Distribution Width 23.5 % (11.5-14.5); Red Blood Cell (RBC) Count 3.69 mill/uL (4.70-6.10); Target Cells SLIGHT = 2-5 cells (100X) (0-1/hpf); White Blood Cell (WBC) Count 12.1 thou/uL (4.8-10.8)
[2017-06-18] MEDS: metroNIDAZOLE 500 MG in Premix Bag 1 BAG IVPB SCH ×3 (05:48→22:04)
[2017-06-18 06:46] LABS: Albumin 1.9 g/dL (3.4-4.8)
[2017-06-18 06:47] LABS: Chloride 104 mmol/L (98-107)
[2017-06-18 06:48] LABS: Calcium 7.9 mg/dL (7.8-10.44); Potassium 3.4 mmol/L (3.5-5.1); Sodium 138 mmol/L (136-145)
[2017-06-18 06:49] LABS: Globulin 4.7 g/dL (2.4-3.5); Glucose 73 mg/dL (83-110); Protein, Total 6.6 g/dL (5.8-8.1)
[2017-06-18 06:50] LABS: Anion Gap 15 mmol/L (10-20); Carbon Dioxide 22 mmol/L (23-31)
[2017-06-18 06:51] LABS: Bilirubin, Total 2.1 mg/dL (0.2-1.2)
[2017-06-18 06:52] LABS: Alkaline Phosphatase 70 U/L (40-150); Calc. Creatinine Clearance 43 mL/min (70-130); Estimated GFR-MDRD 35
[2017-06-18 06:53] LABS: BUN (Urea Nitrogen) 43 mg/dL (8.4-25.7)
[2017-06-18 06:54] LABS: AST (SGOT) 32 U/L (5-34)
[2017-06-18 06:55] LABS: ALT (SGPT) 13 U/L (8-55)
[2017-06-18] MEDS: Aztreonam 1 GM, Admixture Fee 1 EACH in Sterile Water 10 ML SLOW IVP SCH ×3 (08:28→23:10)
[2017-06-18] MEDS: Citrucel 500 MG TAB PO SCH ×2 (08:29→22:04)
[2017-06-18] MEDS: levETIRAcetam In NaCl (Iso-Os) 1,000 MG in Premix Bag 1 BAG IVPB SCH ×4 (08:29→22:03)
[2017-06-18] MEDS: Senokot S 8.6-50 MG TAB PO SCH ×2 (08:30→22:04)
[2017-06-18] MEDS: Polyethylene Glycol 3350 17 GM Packet PO SCH (08:30)
[2017-06-18] MEDS: Witch Hazel-Glycerin 1 EACH JAR TOP SCH ×3 (08:31→23:09)
--- NOTE | 2017-06-18 09:38 | PRG ---
DATE OF SERVICE: 06/18/2017 SUBJECTIVE: Mr. Chandler is intubated on the ventilator. He is on intravenous Levophed. OBJECTIVE: VITAL SIGNS: Blood pressure 140/57, pulse 102, it is atrial fibrillation. LUNGS: Clear. CARDIAC: Irregular. ABDOMEN: Soft, nontender. EXTREMITIES: Show no edema. The patient still has the blood coming out of the NG tube. ASSESSMENT: 1. Advanced congestive heart failure. 2. 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 3. Intracerebral bleed. 4. Gastrointestinal bleed. PLAN: Continue supportive care. 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
--- NOTE | 2017-06-18 14:36 | PDOC.PN ---
- Subjective Encounter Start Date: 06/18/17 Encounter Start Time: 12:15 -: non-verbal, old records requested/rev Pt seen and examined, chart reviewed in its entirety. PT on vent, Proprofol off , on CPAP. Pt does not arouse, no response. Requiring 5mcg levophed. LOW BP overnight, required 3L NS. on 50ml/hr of D5NS for low glucose. Palliative care consult requested. Son in [place], other in [place] ROS not possible due to MS - Objective Resuscitation Status: Resuscitation Status FULL:Full Resuscitation MAR Reviewed: Yes Vital Signs & Weight: Vital Signs (12 hours) Temp Pulse Resp BP Pulse Ox 06/18/17 12:00 17 06/18/17 11:59 84 114/64 06/18/17 10:00 19 06/18/17 08:06 113 H 118/69 06/18/17 08:00 96.5 F L 102 H 19 96 06/18/17 06:00 97.3 F L 26 H 06/18/17 04:00 97.8 F 33 H 06/18/17 02:44 102 H Weight Admit Weight 260 lb 4.8 oz Weight 229 lb 8.019 oz Most Recent Monitor Data Heart Rate from ECG 84 NIBP 108/72 NIBP BP-Mean 92 Respiration from ECG 14 SpO2 94 I&O: 06/17/17 06/18/17 06/19/17 06:59 06:59 06:59 Intake Total 2779.3 5462 100 Output Total 439 865 60 Balance 2340.3 4597 40 Result Diagrams: 06/18/17 04:00 06/18/17 06:00 Additional Labs: Accuchecks 06/18/17 06/17/17 01:07 18:24 POC Glucose 69 L 81 Radiology Reviewed by me: Yes EKG Reviewed by me: Yes Phys Exam - Physical Examination Constitutional: NAD HEENT: moist MMs, sclera anicteric, oral pharynx no lesions pupils, 2mm and minimally reactive bilaterally orally intubated on Vent. Neck: no nodes, no JVD, supple, full ROM Respiratory: no wheezing, no rales, no rhonchi, clear to auscultation bilateral Cardiovascular: RRR, no significant murmur, no rub Gastrointestinal: soft, non-tender, no distention, positive bowel sounds Musculoskeletal: edema present Lymphatic: no nodes Deviation from normal: unresponsive, not on sedation Skin: no rash, normal turgor, cap refill <2 seconds Dx/Plan (1) CKD (chronic kidney disease) stage 3, GFR 30-59 ml/min Code(s): N18.3 - CHRONIC KIDNEY DISEASE, STAGE 3 (MODERATE) Status: Acute Comment: NAHUN + CKD improving. (2) HTN (hypertension) Code(s): I10 - ESSENTIAL (PRIMARY) HYPERTENSION Status: Acute Qualifiers: Hypertension type: essential hypertension Qualified Code(s): I10 - Essential (primary) hypertension Comment: BP satisfactory.. (3) Cardiomyopathy Code(s): I42.9 - CARDIOMYOPATHY, UNSPECIFIED Status: Chronic Qualifiers: Cardiomyopathy type: unspecified Qualified Code(s): I42.9 - Cardiomyopathy , unspecified Comment: Has pacemaker defibrillator in place. (4) Acute intracranial hemorrhage Code(s): I62.9 - NONTRAUMATIC INTRACRANIAL HEMORRHAGE, UNSPECIFIED Status: Acute (5) Seizure disorder as sequela of cerebrovascular accident Code(s): I69.398 - OTHER SEQUELAE OF CEREBRAL INFARCTION; G40.909 - EPILEPSY, UNSP, NOT INTRACTABLE, WITHOUT STATUS EPILEPTICUS Status: Acute (6) Acute hypoxemic respiratory failure Code(s): J96.01 - ACUTE RESPIRATORY FAILURE WITH HYPOXIA Status: Acute Comment: on CPAP, breathing on own, but no higher function off sedations. PC consult to contact family and assist with decision making (7) Acute on chronic systolic (congestive) heart failure Code(s): I50.23 - ACUTE ON CHRONIC SYSTOLIC (CONGESTIVE) HEART FAILURE Status : Acute (8) NAHUN (acute kidney injury) Code(s): N17.9 - ACUTE KIDNEY FAILURE, UNSPECIFIED Status: Acute (9) Paroxysmal A-fib Code(s): I48.0 - PAROXYSMAL ATRIAL FIBRILLATION Status: Chronic - Plan cont current plan of care, continue antibiotics, PT/OT, social work nurse, respiratory therapy * .
--- NOTE | 2017-06-18 17:24 | PRG ---
DATE OF SERVICE: 06/18/2017 SERVICE: Pulmonary Medicine. INTERVAL HISTORY: The patient is doing fine from a respiratory standpoint. We stopped the sedation today. He did not have any additional seizures. That being said, he did not wake up too terribly well throughout the course of the day. He remains on pressure support ventilation while he is off sedation. If he wakes up through the day, our plan is to drop to 5/5. If he tolerates this for 30 minutes and his mentation allows, extubation will be considered. Once again overnight, he did not tolerate his tube feeds and had an aspiration related event. PHYSICAL EXAMINATION: VITAL SIGNS: Afebrile, pulse 90, blood pressure 135/74, respirations 85, saturation 96% on 21% FiO2 and PEEP of 5. GENERAL: Patient is intubated and sedated. HEENT: Normocephalic, atraumatic. Sclerae are white, conjunctivae pink. Oral and nasal mucosa is moist without lesions. LUNGS: Decent air entry. Rhonchi are present. No prolonged expiratory phase or wheezing. HEART: Normal rate and regular. ABDOMEN: Soft, nontender, nondistended. Bowel sounds positive. MUSCULOSKELETAL: No cyanosis or clubbing. Trace pitting in the bilateral lower extremities. NEUROLOGIC: Grossly nonfocal. LABORATORY DATA: WBC is down trending to 12.1, hemoglobin 9.9, and platelets 320,000. Neutrophil count is 84% with 10% bands. INR 1.3. Creatinine 2.25 and once again down trending. BUN 43. Basic metabolic profile is otherwise unremarkable with potassium of 3.4. Liver function studies are unremarkable. ASSESSMENT: 1. Acute hypoxic respiratory failure. 2. Status epilepticus. 3. Metabolic encephalopathy secondary to #2. 4. Acute kidney injury on chronic kidney disease. 5. Severe sepsis, recurrent. 6. Healthcare-associated pneumonia. 7. Subdural hematoma. 8. Diarrhea. PLAN: We will continue antibiotics. We will hold our sedation after 48 hours of sedation. As soon as the patient's mentation allows, he will be given a spontaneous breathing trial, and extubation will be considered. Supportive care on the ventilator will be continued. Critical Care will continue to follow while the patient remains in this location. CRITICAL CARE TIME: 30 minutes. MTDD
--- NOTE | 2017-06-18 19:16 | PRG ---
DATE OF SERVICE: 06/18/2017 SUBJECTIVE: The patient was seen and examined at bedside. Patient is intubated, seen in ICU. ICU n urse updated patient's renal function is getting worse and reconsulted. OBJECTIVE: GENERAL: This is a well-built male seen in ICU, intubated. VITAL SIGNS: Temperature 96.5, pulse 90, respiratory 18, blood pressure 135/74. HEENT: Intubated. RESPIRATORY: Intubated. CARDIOVASCULAR: S1, S2 heard. GASTROINTESTINAL: Abdomen is soft. MUSCULOSKELETAL: 1+ edema. DERMATOLOGIC: Chronic skin lesions. NEUROLOGIC: Sedated. LABORATORY DATA: Potassium is 3.4, BUN is 43, creatinine is 2.25. ASSESSMENT AND PLAN: 1. Acute kidney injury most likely from acute tubular necrosis. The patient recently had acute kidn ey injury and was getting better. His creatinine was 1.7, went up to 2.6 and today it is 2.2. Sujatha nue supportive care, avoid nephrotoxins. We will hold Lasix. Patient initially came with lot of dianne ma and had good diuresis. Continue supportive care, antibiotics. Avoid nephrotoxins and renally dos e all the medicines. We will follow. 2. Proteinuria, not significant. 3. Check random urine to protein creatinine ratio. 4. Hypokalemia, replace and monitor. 5. Acidosis, mild. 6. Hypoalbuminemia. 7. Hypertension, currently hypotensive. 8. Leukocytosis. 9. Acute hypoxic respiratory failure, intubated and follow with the critical care team. 10. Renal function seems to be getting better from yesterday. We will continue to monitor. Continu e supportive care. Avoid nephrotoxins. We will follow.
--- NOTE | 2017-06-18 20:46 | PRG ---
DATE OF SERVICE: 06/15/2017 SUBJECTIVE: Mr. Chandler had focal motor seizures involving left side. He was initiated on Keppra [address] scan showed a right subdural hematoma. According to nurse, he has been having inte rmittent episodes of twitching on the left face and arm, this is especially worse when he is provoked . I had received a phone call from Dr. Fine regarding his concern for subclinical status. PHYSICAL EXAMINATION: VITAL SIGNS: Blood pressure of 174/64, temperature of 97.8, respirations of 16, O2 sats of 96% on me chanical ventilation. GENERAL: Intubated, sedated -[place]cu[place] male. RESPIRATORY: Clear to auscultation bilaterally. CARDIOVASCULAR: Regular rate and rhythm. NEUROLOGIC: Mental status: The patient is intubated and sedated. He does not respond to verbal or noxious stimuli. Cranial nerves: Pupils are 3 mm and reactive. Visual moody could not be tested. Face appears symmetric. Motor exam showed flaccid bilateral upper and lower extremity. There were no tonic-clonic convulsions or no focal motor seizure noted during my examination. IMPRESSION: 1. Left-sided focal motor seizure. 2. Right subdural hematoma. Mr. Chandler is a 72-year-old -[place]cu[place] male with multiple medical problems who had a sudden onse t of left-sided jerking episodes which are likely focal motor seizure with secondary generalization. His CT scan did show right subdural hematoma which is the likely cause for his seizures. I have inc reased the dose of the Keppra to 1000 mg IV b.i.d. Once he is orally able to take medications, we wi ll change his Keppra to 1000 mg p.o. b.i.d. I will obtain EEG for further evaluation. I have advise d his nurse for seizure-related precautions. Thank you for your consultation.
[2017-06-18] MEDS: Famotidine/PF 20 mg/2ml Vial SLOW IVP SCH (22:04)
[2017-06-18] MEDS: Vancomycin HCl 1 GM in Premix Bag 1 BAG IVPB SCH (22:12)
--- NOTE | 2017-06-18 22:39 | PRG ---
DATE OF SERVICE: 06/18/2017 SUBJECTIVE: Mr. Chandler has not had any seizure per his nurse. He has not had any new changes in neur ological exam over the past 24 hours. PHYSICAL EXAMINATION: VITAL SIGNS: Blood pressure 131/78, pulse of 85, temperature of 98.1 and respiration of 25 on mechan ical ventilation. GENERAL: Intubated and mildly sedated -[place]ic male in no apparent distress. NEUROLOGICAL: Exam is essentially unchanged. IMPRESSION: 1. Complex partial seizure with secondary generalization. 2. Right subdural hematoma. PLAN: Mr. Chandler is a 72-year-old -I[place]ic male with multiple medical problems, who had a johnny den onset of left facial and upper extremity twitching with secondary generalization. He was found t o have a right subdural hematoma. He has been stable. He has been seizure free over the past 48 mckenna rs with the increase in dose of Keppra. I would recommend continuing Keppra 1000 mg b.i.d. Continue supportive care. We will sign off. Please call if there are any questions or concerns or patient h as increased episodes of seizures.
[2017-06-19 04:58] LABS: ALT (SGPT) 12 U/L (8-55); AST (SGOT) 24 U/L (5-34); Albumin 1.9 g/dL (3.4-4.8); Alkaline Phosphatase 75 U/L (40-150); Anion Gap 16 mmol/L (10-20); BUN (Urea Nitrogen) 45 mg/dL (8.4-25.7); Bilirubin, Total 2.3 mg/dL (0.2-1.2); Calc. Creatinine Clearance 40 mL/min (70-130); Calcium 8.1 mg/dL (7.8-10.44); Carbon Dioxide 21 mmol/L (23-31); Chloride 106 mmol/L (98-107); Estimated GFR-MDRD 32; Globulin 4.6 g/dL (2.4-3.5); Glucose 60 mg/dL (83-110); Potassium 3.8 mmol/L (3.5-5.1); Protein, Total 6.5 g/dL (5.8-8.1); Sodium 139 mmol/L (136-145)
[2017-06-19 05:18] LABS: Band 21 % (5-11); Eosinophils 3 % (0-10); Lymphocytes 2 % (21-51); MDiff Complete? YES; Mean Corpuscular HGB CONC 30.7 g/dL (32.0-36.0); Mean Corpuscular Hemoglobin 27.1 pg (27.0-31.0); Mean Corpuscular Volume 88.4 fl (80.0-94.0); Monocytes 8 % (0-10); Myelocyte 1 % (0-0); Neutrophil 65 % (42-75); Platelet Count 393 thou/uL (130-400); White Blood Cell (WBC) Count 14.7 thou/uL (4.8-10.8)
[2017-06-19] MEDS: metroNIDAZOLE 500 MG in Premix Bag 1 BAG IVPB SCH ×3 (06:38→22:56)
[2017-06-19] MEDS: levETIRAcetam In NaCl (Iso-Os) 1,000 MG in Premix Bag 1 BAG IVPB SCH ×4 (08:40→20:53)
[2017-06-19] MEDS: Polyethylene Glycol 3350 17 GM Packet PO SCH (08:40)
[2017-06-19] MEDS: Citrucel 500 MG TAB PO SCH ×2 (08:41→20:54)
[2017-06-19] MEDS: Senokot S 8.6-50 MG TAB PO SCH ×2 (08:41→20:54)
--- NOTE | 2017-06-19 09:11 | PRG ---
DATE OF SERVICE: 06/19/2017 SUBJECTIVE: The patient was seen and examined at bedside, seen in the ICU, patient remains intubated . Our plan to extubate, making a minimal amount of urine around 10 mL. Blood pressure is stable. B lood sugar on the lower side on D5 NS. OBJECTIVE: GENERAL: This is a well-built male, seen in the ICU and intubated. VITAL SIGNS: Temperature 97.8, pulse 94, respiratory rate 19, and blood pressure 103/61. HEENT: Intubated. CARDIOVASCULAR: S1 and S2 heard. Rate and rhythm regular. RESPIRATORY: Clear. GI: Abdomen is soft. MUSCULOSKELETAL: 1+ edema. NEUROLOGIC: Intubated. LABORATORY DATA: WBC is 14.7, hemoglobin is 9.0, platelets 393. Potassium is 3.8, BUN is 45, and cr eatinine is 2.4. ASSESSMENT: 1. Acute kidney injury on chronic kidney disease, stage 3. Renal function with fluctuation. We jonnathan l check for urine studies and hold Lasix and continue supportive care. 2. Proteinuria. Check urine studies. 3. Hypokalemia. 4. Acidosis. 5. Hypoalbuminemia. 6. Hypertension, most likely hypoxic respiratory failure. PLAN: 1. Possibly extubate today. 2. We will continue to monitor. Avoid nephrotoxins.
--- NOTE | 2017-06-19 09:12 | PRG ---
DATE OF SERVICE: 06/19/2017 Mr. Chandler remains on the ventilator. REVIEW OF SYSTEMS: Not obtainable. He is currently off pressors. PHYSICAL EXAMINATION: VITAL SIGNS: Blood pressure 103/61, pulse 80s, it is irregular. LUNGS: Clear. CARDIAC: Irregular, irregular. ASSESSMENT: 1. Congestive heart failure, systolic, chronic. 2. Atrial fibrillation, chronic. 3. Status post intracranial hemorrhage. 4. Status post gastrointestinal hemorrhage. PLAN: 1. The hope is to try to wean him off the ventilator. 2. He cannot be anticoagulated. 3. Diuretics if needed.
[2017-06-19] MEDS: Vancomycin HCl 25 MG/ML Oral PO SCH ×3 (09:39→21:18)
[2017-06-19] MEDS: Aztreonam 1 GM, Admixture Fee 1 EACH in Sterile Water 10 ML SLOW IVP SCH ×3 (09:48→23:02)
[2017-06-19] MEDS: Witch Hazel-Glycerin 1 EACH JAR TOP SCH ×3 (09:49→21:00)
[2017-06-19 12:21] LABS: Creatinine, Urine 88.75 mg/dL (63-166)
[2017-06-19] MEDS: Propofol 1,000 MG/100 ML VIAL IV PRN (12:59)
--- NOTE | 2017-06-19 13:03 | PRG ---
DATE OF SERVICE: 06/19/2017 SERVICE: Pulmonary Medicine. INTERVAL HISTORY: The patient is doing okay from a respiratory standpoint. His creatinine is up a l ittle bit. That being said, he is starting to make a little bit more urine. He seems to be stabiliz ing from a septic shock standpoint. Otherwise, there has been no interval change to his condition. He has been off sedation since yesterday. His mentation is slow to improve. He is starting to come around however. PHYSICAL EXAMINATION: VITAL SIGNS: Afebrile, pulse 86, blood pressure 127/79, respirations 19, saturation 96% on 21% FiO2 and a PEEP of 5. GENERAL: The patient is sedated and somnolent. HEENT: Normocephalic, atraumatic. Sclerae are white, conjunctivae pink. Oral mucosa is moist witho ut lesions. LUNGS: Decreased air entry. No dependent crackles are present. HEART: Normal rate, regular. ABDOMEN: Soft. Nontender, nondistended, bowel sounds positive. MUSCULOSKELETAL: No cyanosis or clubbing. There is no pitting in the bilateral lower extremities. NEUROLOGIC: Grossly nonfocal. LABORATORY DATA: WBC 14.7, hemoglobin 9.9, platelets 393,000. Band count is 21%, but the neutrophil count is 86%. INR 1.3. Creatinine 2.40, which is slightly up-trending. Basic metabolic profile is unremarkable. Liver functions are otherwise unremarkable. Total bilirubin is stable at 2.3. Digox in 0.48. Stool lactoferrin was positive. C. diff antigen is positive and the PCR for the toxin is a lso positive. Blood cultures x3 are unremarkable to date. ASSESSMENT: 1. Acute hypoxic respiratory failure. 2. Status epilepticus. 3. Subdural hematoma. 4. Severe sepsis. 5. Healthcare-associated pneumonia. 6. Clostridium difficile colitis. 7. Acute kidney injury. 8. Chronic systolic heart failure without acute exacerbation. PLAN: We will continue antibiotics. The patient is stabilizing. I will send the sputum for culture and Gram stain. Supportive care on the ventilator will be continued. As soon as the patient's ment ation allows, we will put him on a CPAP trial at 5/5 and consider him for extubation. Until that arjun e comes, supportive measures will be continued. There has been no additional seizure activity so far as I am aware. Critical care time: 30 minutes.
--- NOTE | 2017-06-19 14:18 | PDOC.PN ---
- Subjective Encounter Start Date: 06/19/17 Encounter Start Time: 10:45 -: non-verbal Pt barely tried to open eyes to verbal or tactile stimuli. Not waking much. Pulm, Cardiology, Renal notes reviewed. Sputum stiana dn culture sent. No f/C, no D, no vomiting. no acute events overnight - Objective Resuscitation Status: Resuscitation Status FULL:Full Resuscitation MAR Reviewed: Yes Vital Signs & Weight: Vital Signs (12 hours) Temp Pulse Resp BP Pulse Ox 06/19/17 14:00 18 06/19/17 12:00 97.5 F L 20 06/19/17 10:45 86 109/64 06/19/17 10:00 21 H 06/19/17 08:00 97.8 F 96 20 95 06/19/17 07:19 94 110/65 06/19/17 06:00 20 06/19/17 04:00 98.5 F 23 H 06/19/17 03:01 82 Weight Admit Weight 260 lb 4.8 oz Weight 232 lb 12.93 oz Most Recent Monitor Data Heart Rate from ECG 82 NIBP 101/63 NIBP BP-Mean 87 Respiration from ECG 20 SpO2 95 I&O: 06/18/17 06/19/17 06/20/17 06:59 06:59 06:59 Intake Total 5462 1930 Output Total 865 420 105 Balance 4597 1510 -105 Result Diagrams: 06/19/17 04:23 06/19/17 03:30 Additional Labs: Accuchecks 06/19/17 06/18/17 06/18/17 04:03 23:22 20:44 POC Glucose 66 L 80 71 06/18/17 06/18/17 06/18/17 16:18 12:49 07:50 POC Glucose 68 L 66 L 63 L 06/18/17 06/18/17 06/18/17 05:53 04:15 03:25 POC Glucose 73 135 H 59 L* Radiology Reviewed by me: Yes EKG Reviewed by me: Yes Phys Exam - Physical Examination Constitutional: NAD HEENT: PERRLA, moist MMs, sclera anicteric, oral pharynx no lesions Neck: no nodes, no JVD, supple, full ROM coarse bilateral BS. No wheezing Cardiovascular: RRR, no significant murmur, no rub Gastrointestinal: soft, no distention, positive bowel sounds Musculoskeletal: no edema, pulses present Lymphatic: no nodes Skin: no rash, normal turgor, cap refill <2 seconds Dx/Plan (1) CKD (chronic kidney disease) stage 3, GFR 30-59 ml/min Code(s): N18.3 - CHRONIC KIDNEY DISEASE, STAGE 3 (MODERATE) Status: Acute Comment: NAHUN + CKD stable (2) HTN (hypertension) Code(s): I10 - ESSENTIAL (PRIMARY) HYPERTENSION Status: Acute Qualifiers: Hypertension type: essential hypertension Qualified Code(s): I10 - Essential (primary) hypertension Comment: BP satisfactory.. (3) Cardiomyopathy Code(s): I42.9 - CARDIOMYOPATHY, UNSPECIFIED Status: Chronic Qualifiers: Cardiomyopathy type: unspecified Qualified Code(s): I42.9 - Cardiomyopathy , unspecified Comment: Has pacemaker defibrillator in place. (4) Acute intracranial hemorrhage Code(s): I62.9 - NONTRAUMATIC INTRACRANIAL HEMORRHAGE, UNSPECIFIED Status: Acute (5) Seizure disorder as sequela of cerebrovascular accident Code(s): I69.398 - OTHER SEQUELAE OF CEREBRAL INFARCTION; G40.909 - EPILEPSY, UNSP, NOT INTRACTABLE, WITHOUT STATUS EPILEPTICUS Status: Acute (6) Acute hypoxemic respiratory failure Code(s): J96.01 - ACUTE RESPIRATORY FAILURE WITH HYPOXIA Status: Acute Comment: on CPAP, breathing on own, but no higher function off sedations. PC consult to contact family and assist with decision making (7) Acute on chronic systolic (congestive) heart failure Code(s): I50.23 - ACUTE ON CHRONIC SYSTOLIC (CONGESTIVE) HEART FAILURE Status : Acute (8) NAHUN (acute kidney injury) Code(s): N17.9 - ACUTE KIDNEY FAILURE, UNSPECIFIED Status: Acute (9) Paroxysmal A-fib Code(s): I48.0 - PAROXYSMAL ATRIAL FIBRILLATION Status: Chronic - Plan cont current plan of care, continue antibiotics, social group worker, respiratory therapy * .
[2017-06-19] MEDS: Dextrose 50% Abboject 50 ML SYRINGE IVP PRN ×2 (17:03→21:18)
[2017-06-19] MEDS: Famotidine/PF 20 mg/2ml Vial SLOW IVP SCH (20:53)
[2017-06-19] MEDS: Dextrose 5 % And 0.9 % NaCl 1,000 ML IV SCH (20:56)
[2017-06-19 21:26] LABS: Vancomycin, Trough 18.1 ug/mL
[2017-06-19] MEDS: Vancomycin HCl 1 GM in Premix Bag 1 BAG IVPB SCH (22:57)
[2017-06-20] MEDS: Vancomycin HCl 25 MG/ML Oral PO SCH ×4 (02:49→20:57)
[2017-06-20 04:37] LABS: ALT (SGPT) 10 U/L (8-55); AST (SGOT) 23 U/L (5-34); Albumin 1.9 g/dL (3.4-4.8); Alkaline Phosphatase 68 U/L (40-150); Anion Gap 15 mmol/L (10-20); BUN (Urea Nitrogen) 49 mg/dL (8.4-25.7); Bilirubin, Total 2.4 mg/dL (0.2-1.2); Calc. Creatinine Clearance 38 mL/min (70-130); Calcium 8.4 mg/dL (7.8-10.44); Carbon Dioxide 21 mmol/L (23-31); Chloride 106 mmol/L (98-107); Estimated GFR-MDRD 29; Globulin 4.4 g/dL (2.4-3.5); Potassium 3.5 mmol/L (3.5-5.1); Protein, Total 6.3 g/dL (5.8-8.1); Sodium 138 mmol/L (136-145)
[2017-06-20 04:41] LABS: Glucose 58 mg/dL (83-110)
[2017-06-20 05:18] LABS: Band 11 % (5-11); Eosinophils 4 % (0-10); Hemoglobin 8.3 g/dL (14.0-18.0); Hypochromia SLIGHT = 6-15 cells (100X) (0-5/hpf); Lymphocytes 3 % (21-51); MDiff Complete? YES; Mean Corpuscular Hemoglobin 27.6 pg (27.0-31.0); Mean Corpuscular Volume 88.9 fl (80.0-94.0); Mean Platelet Volume 7.6 fL (7.4-10.4); Monocytes 6 % (0-10); Neutrophil 76 % (42-75); Platelet Count 399 thou/uL (130-400); RBC Distribution Width 18.1 % (11.5-14.5); Red Blood Cell (RBC) Count 3.01 mill/uL (4.70-6.10); Toxic Granulation SLIGHT; White Blood Cell (WBC) Count 16.3 thou/uL (4.8-10.8)
[2017-06-20] MEDS: metroNIDAZOLE 500 MG in Premix Bag 1 BAG IVPB SCH ×3 (06:40→20:58)
[2017-06-20] MEDS: Dextrose 50% Abboject 50 ML SYRINGE IVP PRN ×2 (06:40→09:20)
[2017-06-20] MEDS: Aztreonam 1 GM, Admixture Fee 1 EACH in Sterile Water 10 ML SLOW IVP SCH ×3 (09:23→23:02)
[2017-06-20] MEDS: Senokot S 8.6-50 MG TAB PO SCH ×2 (09:24→19:45)
[2017-06-20] MEDS: Polyethylene Glycol 3350 17 GM Packet PO SCH (09:24)
[2017-06-20] MEDS: Citrucel 500 MG TAB PO SCH ×2 (09:24→19:45)
[2017-06-20] MEDS: levETIRAcetam In NaCl (Iso-Os) 1,000 MG in Premix Bag 1 BAG IVPB SCH ×4 (09:24→20:57)
--- NOTE | 2017-06-20 10:13 | PRG ---
DATE OF SERVICE: 06/20/2017 SERVICE: Pulmonary Medicine. INTERVAL HISTORY: The patient is doing okay from a cardiovascular and respiratory standpoint. He se ems to be clearing his sepsis profile. He did not have any additional seizures. That being said, he is having recurrent low blood sugars. He cannot provide any additional elements of the history. Th at being said, he is grimacing and wiggling his toes. PHYSICAL EXAMINATION: VITAL SIGNS: Afebrile, pulse 80, blood pressure 88/55, respirations 13, saturation 100% on 21% FiO2 and a PEEP of 5. GENERAL: Patient is intubated and encephalopathic. HEENT: Normocephalic, atraumatic. Sclerae are white, conjunctivae pink. Oral and nasal mucosa is m oist without lesions. LUNGS: Decent air entry. There are no crackles. Rhonchi are present, but clear with cough. No whe ezing is appreciated. HEART: Normal rate, regular. ABDOMEN: Soft, nontender, nondistended. Bowel sounds are positive. MUSCULOSKELETAL: No cyanosis or clubbing. There is no pitting in the bilateral lower extremities. NEUROLOGIC: Grossly nonfocal. He has a diffuse encephalopathy. LABORATORY DATA: WBC 16.3, hemoglobin 8.3, platelets 399,000. Band count is dropping to 11%. INR 1 .3. Creatinine 2.62 and gently up trending. BUN 49. Potassium 3.5. Liver function studies are oth erwise unremarkable. Blood sugar is persistently low at 52. ASSESSMENT: 1. Acute hypoxic respiratory failure, resolved. 2. Severe sepsis. 3. Healthcare-associated pneumonia. 4. Clostridium difficile infection. 5. Subdural hematoma. 6. Status epilepticus, resolved. 7. Acute kidney injury. 8. Hypoglycemia. 9. Chronic systolic heart failure without current exacerbation. PLAN: I will start the patient on a D10 drip of water. He will continue his noninvasive ventilation , so long as he remains off of sedation. In 24-48 hours, hopefully, the patient will continue cleari ng his sepsis profile on a good supportive care with these antibiotics. As that happens, his mentati on should start to improve. The patient's functional status at baseline was marginal at best. He is going to have a very difficult time recovering from the severe infection, and protracted admission. Critical care time: 30 minutes.
[2017-06-20] MEDS: Dextrose 10% in Water 1,000 ML IV SCH (11:32)
--- NOTE | 2017-06-20 12:52 | PDOC.PN ---
- Subjective Encounter Start Date: 06/20/17 Encounter Start Time: 09:15 -: non-verbal Pt taken off propofol and on CPAP. overnight, became very tachypneic and placed back on SIMV and propofol. Back on to CPAP this morning. minimal response, barely opens eyes, retract all 4 extremities from painful stimuli No other acute events - Objective Resuscitation Status: Resuscitation Status FULL:Full Resuscitation MAR Reviewed: Yes Vital Signs & Weight: Vital Signs (12 hours) Temp Pulse Resp BP Pulse Ox 06/20/17 12:00 15 06/20/17 11:39 97.8 F 06/20/17 11:31 75 108/68 06/20/17 10:00 16 06/20/17 08:00 97.8 F 86 18 100 06/20/17 07:54 71 112/67 06/20/17 06:00 19 06/20/17 04:00 98.0 F 22 H 06/20/17 02:00 21 H Weight Admit Weight 260 lb 4.8 oz Weight 232 lb 12.93 oz Most Recent Monitor Data Heart Rate from ECG 81 NIBP 107/63 NIBP BP-Mean 73 Respiration from ECG 13 SpO2 100 I&O: 06/19/17 06/20/17 06/21/17 06:59 06:59 06:59 Intake Total 1930 1478 Output Total 420 700 160 Balance 1510 778 -160 Result Diagrams: 06/20/17 04:02 06/20/17 04:02 Additional Labs: Accuchecks 06/19/17 06/19/17 06/19/17 23:07 20:51 17:51 POC Glucose 72 52 L* 90 06/19/17 06/19/17 16:58 11:20 POC Glucose 52 L* 61 L Radiology Reviewed by me: Yes EKG Reviewed by me: Yes Phys Exam - Physical Examination Constitutional: NAD HEENT: PERRLA, moist MMs, sclera anicteric, oral pharynx no lesions orally intubated Neck: no nodes, no JVD, supple Respiratory: no wheezing, no rales, no rhonchi, clear to auscultation bilateral Cardiovascular: RRR, no significant murmur, no rub Gastrointestinal: soft, non-tender, no distention, positive bowel sounds Musculoskeletal: pulses present, edema present Neurological: moves all 4 limbs Lymphatic: no nodes Skin: no rash, normal turgor, cap refill <2 seconds Dx/Plan (1) CKD (chronic kidney disease) stage 3, GFR 30-59 ml/min Code(s): N18.3 - CHRONIC KIDNEY DISEASE, STAGE 3 (MODERATE) Status: Acute Comment: NAHNU + CKD stable (2) HTN (hypertension) Code(s): I10 - ESSENTIAL (PRIMARY) HYPERTENSION Status: Acute Qualifiers: Hypertension type: essential hypertension Qualified Code(s): I10 - Essential (primary) hypertension Comment: BP satisfactory.. (3) Cardiomyopathy Code(s): I42.9 - CARDIOMYOPATHY, UNSPECIFIED Status: Chronic Qualifiers: Cardiomyopathy type: unspecified Qualified Code(s): I42.9 - Cardiomyopathy , unspecified Comment: Has pacemaker defibrillator in place. (4) Acute intracranial hemorrhage Code(s): I62.9 - NONTRAUMATIC INTRACRANIAL HEMORRHAGE, UNSPECIFIED Status: Acute (5) Seizure disorder as sequela of cerebrovascular accident Code(s): I69.398 - OTHER SEQUELAE OF CEREBRAL INFARCTION; G40.909 - EPILEPSY, UNSP, NOT INTRACTABLE, WITHOUT STATUS EPILEPTICUS Status: Acute (6) Acute hypoxemic respiratory failure Code(s): J96.01 - ACUTE RESPIRATORY FAILURE WITH HYPOXIA Status: Acute Comment: on CPAP, breathing on own, but no higher function off sedations. PC consult to contact family and assist with decision making (7) Acute on chronic systolic (congestive) heart failure Code(s): I50.23 - ACUTE ON CHRONIC SYSTOLIC (CONGESTIVE) HEART FAILURE Status : Acute (8) NAHUN (acute kidney injury) Code(s): N17.9 - ACUTE KIDNEY FAILURE, UNSPECIFIED Status: Acute (9) Paroxysmal A-fib Code(s): I48.0 - PAROXYSMAL ATRIAL FIBRILLATION Status: Chronic - Plan * .
[2017-06-20] MEDS: Witch Hazel-Glycerin 1 EACH JAR TOP SCH ×3 (14:23→20:58)
[2017-06-20] MEDS: Famotidine/PF 20 mg/2ml Vial SLOW IVP SCH (20:57)
--- NOTE | 2017-06-20 21:57 | PRG ---
DATE OF SERVICE: 06/20/2017 SUBJECTIVE: The patient was seen and examined in ICU, still remains intubated, minimally responsive and wiggles toe. Further intubated by the bedside nurse. He is not responding for me, minimal amount of urine. OBJECTIVE: GENERAL: This is a well-built male, intubated and seen in ICU. VITAL SIGNS: Temperature 97.9, pulse 77, respiratory rate 20, blood pressure 110/72. HEENT: Intubated. NEUROLOGIC: Intubated. Not sedated, but minimally responsive. MUSCULOSKELETAL: 1+ edema. GENITOURINARY: Vazquez catheter present with minimal blood-tinged urine. Musculoskeletal : No tenderness, No edema Neck: Supple Cardiovascular: S1S2 heard, Rate and rhythm regular Respiratory: Clear to auscultation Gastrointestinal: Abdomen is soft Dermatologic : No skin rash Psychiatric: Mood and affect normal LABORATORY DATA: Potassium 3.5, BUN 49, creatinine is 2.6 from 2.4 and 2.2 the day before yesterday. ASSESSMENT AND PLAN: 1. Acute kidney injury on chronic kidney disease. Renal function continues to get worse. No acute indication for dialysis. We will continue to monitor. Monitor urine output. Continue supportive care. Continue antibiotics. Follow up with specialist. 2. Proteinuria. 3. Hypokalemia. 4. Acidosis. 5. Hypoalbuminemia. 6. Acute respiratory failure, intubated. No acute indication for dialysis. If renal function does not improve next few days, might need. Urine output seems to be improving, which is a positive sign. We will continue to monitor for now. Avoid nephrotoxins and continue supportive care. We will be happy to follow the care with you. LUCAS
[2017-06-20] MEDS: Vancomycin HCl 1 GM in Premix Bag 1 BAG IVPB SCH (22:00)
[2017-06-21] MEDS: Dextrose 10% in Water 1,000 ML IV SCH ×3 (01:36→21:03)
[2017-06-21] MEDS: Vancomycin HCl 25 MG/ML Oral PO SCH ×5 (02:18→20:17)
[2017-06-21] MEDS: metroNIDAZOLE 500 MG in Premix Bag 1 BAG IVPB SCH ×3 (05:10→21:03)
[2017-06-21 06:04] LABS: ALT (SGPT) 9 U/L (8-55); AST (SGOT) 17 U/L (5-34); Albumin 1.8 g/dL (3.4-4.8); Alkaline Phosphatase 64 U/L (40-150); Anion Gap 13 mmol/L (10-20); BUN (Urea Nitrogen) 52 mg/dL (8.4-25.7); Bilirubin, Total 2.4 mg/dL (0.2-1.2); Calc. Creatinine Clearance 40 mL/min (70-130); Calcium 8.4 mg/dL (7.8-10.44); Carbon Dioxide 20 mmol/L (23-31); Chloride 106 mmol/L (98-107); Estimated GFR-MDRD 29; Globulin 4.3 g/dL (2.4-3.5); Glucose 94 mg/dL (83-110); Potassium 3.1 mmol/L (3.5-5.1); Protein, Total 6.1 g/dL (5.8-8.1); Sodium 136 mmol/L (136-145)
[2017-06-21 06:20] LABS: Band 16 % (5-11); Eosinophils 3 % (0-10); Hemoglobin 8.2 g/dL (14.0-18.0); Lymphocytes 10 % (21-51); MDiff Complete? YES; Mean Corpuscular HGB CONC 30.7 g/dL (32.0-36.0); Mean Corpuscular Hemoglobin 27.2 pg (27.0-31.0); Mean Corpuscular Volume 88.6 fl (80.0-94.0); Mean Platelet Volume 7.8 fL (7.4-10.4); Monocytes 6 % (0-10); Neutrophil 64 % (42-75); PLT Morphology Comment Appears Adequate; Platelet Count 375 thou/uL (130-400); RBC Distribution Width 17.9 % (11.5-14.5); Red Blood Cell (RBC) Count 3.03 mill/uL (4.70-6.10); White Blood Cell (WBC) Count 14.1 thou/uL (4.8-10.8)
[2017-06-21] MEDS ORDERED: Potassium Chloride 20 MEQ TAB PO SCH (08:00)
[2017-06-21 09:18] LABS: Antinuclear AB Positive (Negative); Smith Antibodies <0.2 AI (0.0-0.9); U1RNP/snRNP IGG Autoabs 1.6 AI (0.0-0.9)
[2017-06-21] MEDS: levETIRAcetam In NaCl (Iso-Os) 1,000 MG in Premix Bag 1 BAG IVPB SCH ×4 (09:29→20:17)
[2017-06-21] MEDS: Aztreonam 1 GM, Admixture Fee 1 EACH in Sterile Water 10 ML SLOW IVP SCH (09:29)
[2017-06-21] MEDS: Polyethylene Glycol 3350 17 GM Packet PO SCH (09:30)
[2017-06-21] MEDS: Citrucel 500 MG TAB PO SCH ×2 (09:30→19:36)
[2017-06-21] MEDS: Senokot S 8.6-50 MG TAB PO SCH ×2 (09:30→19:37)
[2017-06-21] MEDS: Witch Hazel-Glycerin 1 EACH JAR TOP SCH ×3 (09:31→20:18)
--- NOTE | 2017-06-21 10:51 | PRG ---
DATE OF SERVICE: 06/21/2017 SERVICE: Pulmonary Medicine. INTERVAL HISTORY: The patient is doing fine from a respiratory standpoint. He cannot provide any ad ditional historical illness because he remains encephalopathic. There were no overnight events. PHYSICAL EXAMINATION: VITAL SIGNS: Afebrile. Pulse 66, blood pressure 94/67, respirations 15, saturation 97% on 21% FiO2 and PEEP of 5. GENERAL: The patient is intubated. He is encephalopathic, but on no sedation. HEENT: Normocephalic, atraumatic. Sclerae are white, conjunctivae pink. Oral and nasal mucosa is m oist without lesions. LUNGS: Decent air entry. Rhonchi are present. No prolonged expiratory phase or wheezing. HEART: Normal rate, regular. ABDOMEN: Soft, nontender, nondistended, bowel sounds positive. MUSCULOSKELETAL: No cyanosis or clubbing. There is trace pitting in the bilateral lower extremities . GENITOURINARY: Vazquez catheter in place. NEUROLOGIC: Grossly nonfocal. When I stimulated him, he attempts to open up his eyes. That being s aid, he does not currently attend. LABORATORY DATA: WBC 14.1, hemoglobin 8.2, and platelets 375,000. Neutrophil count is decreasing. INR 1.3. Creatinine 2.63 and stable today. BUN 52 and stable. Basic metabolic profile is otherwise unremarkable. Potassium 3.1. Total bilirubin 2.4 and stable. [facility] screen is positive for JAMILA rosario rn. Sputum aspirate is growing Staph aureus, which is essentially pansensitive. ASSESSMENT: 1. Acute hypoxic respiratory failure, resolved. 2. Severe sepsis. 3. Healthcare-associated pneumonia secondary to MSSA. 4. Clostridium difficile infection. 5. Subdural hematoma. 6. Status epilepticus, resolved. 7. Acute kidney injury, stable. 8. Hypoglycemia. 9. Chronic systolic heart failure without current exacerbation. PLAN: We will continue D10 for his hypoglycemia and free water requirements. We will start introduc ing a dose of Lasix if he gets significantly volume overloaded. Will be able to discontinue levoflox acin and tailor antibiotics towards the MSSA. I think the Unasyn would be perfectly reasonable at th is time. We will continue to support the patient. Hopefully, his mentation will start to clear over the next 24-48 hours. If he does not, we will need to talk to family about transitioning over to co mfort care only. CRITICAL CARE TIME: 30 minutes.
--- NOTE | 2017-06-21 11:18 | PDOC.PN ---
- Subjective Encounter Start Date: 06/21/17 Encounter Start Time: 08:45 no significant event sovernight. Pt was on d5 for hypoglycemia as TF on hold due to concenr of aspiration. changed to d10NS, then rate increased to 75. doing better. No acute events overnight, spcx with MSSa. Will streamline abx asmuch as possible due to CDiff. Will discuss with Dr Le. no F/c, no N/V/dC. on CPAP doing fairly well. extensive talk with PC this morning. family dynamics discussed and only reachable son hermila will contact oldest brothe katherine Hager to decide plan from here. no noted seizure activity - Objective Resuscitation Status: Resuscitation Status FULL:Full Resuscitation MAR Reviewed: Yes Vital Signs & Weight: Vital Signs (12 hours) Temp Pulse Resp BP 06/21/17 10:28 85 99/61 06/21/17 10:00 18 06/21/17 08:00 97.5 F L 76 17 06/21/17 07:00 97.5 F L 06/21/17 06:48 66 94/67 06/21/17 06:00 15 06/21/17 04:00 16 06/21/17 03:00 98.0 F 06/21/17 02:23 81 103/63 06/21/17 02:00 14 06/21/17 00:00 18 Weight Admit Weight 260 lb 4.8 oz Weight 248 lb 3.848 oz Most Recent Monitor Data Heart Rate from ECG 79 NIBP 99/61 NIBP BP-Mean 74 Respiration from ECG 23 SpO2 98 I&O: 06/20/17 06/21/17 06/22/17 06:59 06:59 06:59 Intake Total 1478 2760 100 Output Total 700 1136 110 Balance 778 1624 -10 Result Diagrams: 06/21/17 05:37 06/21/17 05:37 Additional Labs: Accuchecks 06/21/17 06/21/17 06/20/17 09:28 03:41 23:40 POC Glucose 95 86 92 06/20/17 06/20/17 06/20/17 20:23 16:36 11:39 POC Glucose 76 67 L 71 06/20/17 06/20/17 06/20/17 09:37 07:44 03:57 POC Glucose 135 H 66 L 66 L Radiology Reviewed by me: Yes EKG Reviewed by me: Yes Phys Exam - Physical Examination Constitutional: NAD HEENT: moist MMs, sclera anicteric, oral pharynx no lesions Neck: no nodes, no JVD, supple Respiratory: no wheezing, no rales, no rhonchi, clear to auscultation bilateral Cardiovascular: RRR, no significant murmur, no rub Gastrointestinal: soft, non-tender, no distention, positive bowel sounds Musculoskeletal: pulses present, edema present Lymphatic: no nodes Skin: no rash, normal turgor, cap refill <2 seconds Dx/Plan (1) CKD (chronic kidney disease) stage 3, GFR 30-59 ml/min Code(s): N18.3 - CHRONIC KIDNEY DISEASE, STAGE 3 (MODERATE) Status: Acute Comment: NAHUN + CKD stable (2) HTN (hypertension) Code(s): I10 - ESSENTIAL (PRIMARY) HYPERTENSION Status: Acute Qualifiers: Hypertension type: essential hypertension Qualified Code(s): I10 - Essential (primary) hypertension Comment: BP satisfactory.. (3) Cardiomyopathy Code(s): I42.9 - CARDIOMYOPATHY, UNSPECIFIED Status: Chronic Qualifiers: Cardiomyopathy type: unspecified Qualified Code(s): I42.9 - Cardiomyopathy , unspecified Comment: Has pacemaker defibrillator in place. (4) Acute intracranial hemorrhage Code(s): I62.9 - NONTRAUMATIC INTRACRANIAL HEMORRHAGE, UNSPECIFIED Status: Acute (5) Seizure disorder as sequela of cerebrovascular accident Code(s): I69.398 - OTHER SEQUELAE OF CEREBRAL INFARCTION; G40.909 - EPILEPSY, UNSP, NOT INTRACTABLE, WITHOUT STATUS EPILEPTICUS Status: Acute (6) Acute hypoxemic respiratory failure Code(s): J96.01 - ACUTE RESPIRATORY FAILURE WITH HYPOXIA Status: Acute Comment: on CPAP, breathing on own, but no higher function off sedations. 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
--- NOTE | 2017-06-21 11:57 | PRG ---
DATE OF SERVICE: 06/21/2017 SUBJECTIVE: The patient was seen and examined at bedside in ICU and still remains intubated and not responding much and is making a minimal amount of urine. He made a 536 of urine yesterday with 600 m L of stool almost 1136 output. OBJECTIVE: GENERAL: This is a well-built male, in no apparent distress. VITAL SIGNS: Temperature 98.0, pulse 66, respiratory 15, blood pressure 94/67. HEENT: Atraumatic, normocephalic. Oral mucosa is moist. NECK: Supple. CARDIOVASCULAR: S1, S2 heard. Rate and rhythm regular. RESPIRATORY: Clear to auscultation. GASTROINTESTINAL: Abdomen is soft. MUSCULOSKELETAL: No tenderness, no edema. DERMATOLOGIC: No skin rash. NEUROLOGIC: Alert and awake and oriented x3. No focal neurologic deficits. Moving all the extremit ies. PSYCHIATRIC: Mood and affect normal. LABORATORY DATA: Potassium is 3.1, BUN is 52 and creatinine is 2.6. ASSESSMENT AND PLAN: 1. Acute kidney injury. Renal function seems to be stable. BUN is elevated from yesterday. No acu te indication for dialysis. 2. Hypokalemia. Replace and monitor. 3. Proteinuria, non-nephrotic. 4. Acidosis. 5. Hypoalbuminemia. 6. Acute respiratory failure, intubated. 7. No acute indication for dialysis. Continue supportive care, avoid nephrotoxins, renally dose all the medicines and continue antibiotics. We will follow.
[2017-06-21] MEDS: cefTRIAXone\\ROCEPHIN 2 GM in Sodium Chloride 0.9% 100 ML IVPB SCH (12:46)
[2017-06-21] MEDS ORDERED: Clopidogrel Bisulfate 75 MG TAB ONE (20:12)
[2017-06-21] MEDS: Famotidine/PF 20 mg/2ml Vial SLOW IVP SCH (20:16)
[2017-06-22] MEDS: Vancomycin HCl 25 MG/ML Oral PO SCH ×4 (02:05→21:02)
[2017-06-22] MEDS: metroNIDAZOLE 500 MG in Premix Bag 1 BAG IVPB SCH ×3 (04:58→21:02)
[2017-06-22 05:55] LABS: ALT (SGPT) 8 U/L (8-55); AST (SGOT) 19 U/L (5-34); Albumin 1.8 g/dL (3.4-4.8); Alkaline Phosphatase 65 U/L (40-150); Anion Gap 15 mmol/L (10-20); BUN (Urea Nitrogen) 58 mg/dL (8.4-25.7); Bilirubin, Total 2.1 mg/dL (0.2-1.2); Calc. Creatinine Clearance 37 mL/min (70-130); Calcium 8.5 mg/dL (7.8-10.44); Carbon Dioxide 19 mmol/L (23-31); Chloride 106 mmol/L (98-107); Estimated GFR-MDRD 27; Globulin 4.4 g/dL (2.4-3.5); Glucose 96 mg/dL (83-110); Potassium 3.5 mmol/L (3.5-5.1); Protein, Total 6.2 g/dL (5.8-8.1); Sodium 136 mmol/L (136-145)
[2017-06-22 06:21] LABS: Hemoglobin 8.1 g/dL (14.0-18.0); Mean Corpuscular HGB CONC 30.9 g/dL (32.0-36.0); Mean Corpuscular Hemoglobin 27.4 pg (27.0-31.0); Mean Corpuscular Volume 88.5 fl (80.0-94.0); Mean Platelet Volume 7.5 fL (7.4-10.4); Platelet Count 363 thou/uL (130-400); RBC Distribution Width 17.8 % (11.5-14.5); Red Blood Cell (RBC) Count 2.94 mill/uL (4.70-6.10); White Blood Cell (WBC) Count 16.5 thou/uL (4.8-10.8)
[2017-06-22 06:22] LABS: Anisocytosis SLIGHT = 6-15 cells (100X) (0-5/hpf); Band 6 % (5-11); Eosinophils 3 % (0-10); Lymphocytes 7 % (21-51); MDiff Complete? YES; Metamyelocyte 1 % (0-0); Monocytes 5 % (0-10); Neutrophil 77 % (42-75); Nucleated RBC 1 % (0); PLT Morphology Comment Appears Adequate; Reactive Lymphocytes 1 % (0-10); Target Cells SLIGHT = 2-5 cells (100X) (0-1/hpf); Tear Drops SLIGHT = 2-5 cells (100X) (0-1/hpf)
--- NOTE | 2017-06-22 08:46 | RAD ---
FRONTAL VIEW CHEST: Date: 06/22/17 COMPARISON: 06/16/17. INDICATION: Intubated patient. Respiratory compromise. FINDINGS: Supportive lines and tubes are grossly stable. There has been progressive pleural and parenchymal [place] at each hemithorax with an enlarged cardiac silhouette and progressive pulmonary vasculature. No additional significant interval change identified. IMPRESSION: Progressive edema, likely related to decompensated CHF. Bilateral pleural effusions are present. POS: C
[2017-06-22] MEDS: levETIRAcetam In NaCl (Iso-Os) 1,000 MG in Premix Bag 1 BAG IVPB SCH ×4 (08:56→21:01)
[2017-06-22] MEDS: Senokot S 8.6-50 MG TAB PO SCH ×2 (08:57→21:02)
[2017-06-22] MEDS: Polyethylene Glycol 3350 17 GM Packet PO SCH (08:57)
[2017-06-22] MEDS: Citrucel 500 MG TAB PO SCH ×2 (08:57→21:03)
[2017-06-22] MEDS: Witch Hazel-Glycerin 1 EACH JAR TOP SCH ×3 (08:58→21:03)
[2017-06-22] MEDS: Dextrose 10% in Water 1,000 ML IV SCH ×2 (09:09→11:43)
[2017-06-22] MEDS ORDERED: Furosemide 40 MG/4 ML VIAL SLOW IVP SCH (11:15)
--- NOTE | 2017-06-22 11:16 | PDOC.PN ---
- Subjective Encounter Start Date: 06/22/17 Encounter Start Time: 07:40 -: non-verbal Pt off sedation and not arousable. No acute event soverngiht. BP and SpO2 borderline. no acute events, Palliative Care working with family. No F/C, diarrhea continues, rectal tube in, see I/O record. no acute overnight events - Objective Resuscitation Status: Resuscitation Status FULL:Full Resuscitation MAR Reviewed: Yes Vital Signs & Weight: Vital Signs (12 hours) Temp Pulse Resp BP 06/22/17 10:00 13 06/22/17 08:00 97.5 F L 79 15 06/22/17 07:16 88 99/69 06/22/17 06:00 12 06/22/17 04:00 12 06/22/17 03:19 79 106/64 06/22/17 03:00 98.4 F 06/22/17 02:00 16 06/22/17 00:00 20 Weight Admit Weight 260 lb 4.8 oz Weight 244 lb 11.41 oz Most Recent Monitor Data Heart Rate from ECG 82 NIBP 115/72 NIBP BP-Mean 101 Respiration from ECG 13 SpO2 93 I&O: 06/21/17 06/22/17 06/23/17 06:59 06:59 06:59 Intake Total 2760 2344 60 Output Total 1136 550 75 Balance 1624 1794 -15 Result Diagrams: 06/22/17 04:53 06/22/17 04:53 Additional Labs: Accuchecks 06/22/17 06/21/17 06/21/17 02:59 23:33 20:27 POC Glucose 92 92 107 06/21/17 06/21/17 17:09 12:44 POC Glucose 92 102 Radiology Reviewed by me: Yes EKG Reviewed by me: Yes Phys Exam - Physical Examination Constitutional: NAD HEENT: PERRLA, moist MMs, sclera anicteric, oral pharynx no lesions Neck: no nodes, no JVD, supple, full ROM Respiratory: no wheezing, no rhonchi bilateral rales posteriorly, mild. Cardiovascular: RRR, no significant murmur, no rub Gastrointestinal: soft, non-tender, no distention, positive bowel sounds BS hyperactive. Rectal tube in place Musculoskeletal: pulses present, edema present Lymphatic: no nodes Skin: no rash, normal turgor, cap refill <2 seconds Dx/Plan (1) CKD (chronic kidney disease) stage 3, GFR 30-59 ml/min Code(s): N18.3 - CHRONIC KIDNEY DISEASE, STAGE 3 (MODERATE) Status: Acute Comment: CKD stable, Cr up to 2.8+ (2) HTN (hypertension) Code(s): I10 - ESSENTIAL (PRIMARY) HYPERTENSION Status: Acute Qualifiers: Hypertension type: essential hypertension Qualified Code(s): I10 - Essential (primary) hypertension Comment: BP satisfactory.. (3) Cardiomyopathy Code(s): I42.9 - CARDIOMYOPATHY, UNSPECIFIED Status: Chronic Qualifiers: Cardiomyopathy type: unspecified Qualified Code(s): I42.9 - Cardiomyopathy , unspecified Comment: Has pacemaker defibrillator in place. (4) Acute intracranial hemorrhage Code(s): I62.9 - NONTRAUMATIC INTRACRANIAL HEMORRHAGE, UNSPECIFIED Status: Acute (5) Seizure disorder as sequela of cerebrovascular accident Code(s): I69.398 - OTHER SEQUELAE OF CEREBRAL INFARCTION; G40.909 - EPILEPSY, UNSP, NOT INTRACTABLE, WITHOUT STATUS EPILEPTICUS Status: Acute (6) Acute hypoxemic respiratory failure Code(s): J96.01 - ACUTE RESPIRATORY FAILURE WITH HYPOXIA Status: Acute Comment: on CPAP, breathing on own, but no higher function off sedations. PC consult to contact family and assist with decision making (7) Acute on chronic systolic (congestive) heart failure Code(s): I50.23 - ACUTE ON CHRONIC SYSTOLIC (CONGESTIVE) HEART FAILURE Status : Acute Comment: increase lung sounds, CXR with increased edema, give lasix. (8) NAHUN (acute kidney injury) Code(s): N17.9 - ACUTE KIDNEY FAILURE, UNSPECIFIED Status: Acute (9) Paroxysmal A-fib Code(s): I48.0 - PAROXYSMAL ATRIAL FIBRILLATION Status: Chronic (10) Clostridium difficile colitis Status: Acute Comment: On flagyl, po Vanc. On IV rocephin for MSSa poneumonia. stools still watery. CCM fo rnow (11) HCAP (healthcare-associated pneumonia) Code(s): J18.9 - PNEUMONIA, UNSPECIFIED ORGANISM Status: Acute Comment: MSSA on culture. Covered with CTX. CCM, not present on admission - Plan * .
--- NOTE | 2017-06-22 11:22 | PRG ---
DATE OF SERVICE: 06/22/2017 SERVICE: Pulmonary Medicine. INTERVAL HISTORY: The patient is doing okay from a respiratory standpoint. He remains on 21% FIO2. He has been off of sedation for a day and half now. His mentation is very slow to improve if he is making any progress whatsoever. He cannot provide any additional elements of the history. There wer e no significant overnight events. No more seizure activity was identified. PHYSICAL EXAMINATION: VITAL SIGNS: Afebrile, pulse 82, blood pressure 115/72, respirations 13, saturation 93% on 21% FiO2 and a PEEP of 5. GENERAL: The patient is intubated. He is not under the influence of sedation, but remains encephalo pathic. HEENT: Normocephalic, atraumatic. Sclerae are white, conjunctivae pink. Oral and nasal mucosa is m oist without lesions. LUNGS: Decent air entry. There is no prolonged expiratory phase, wheezing, or rhonchi are present. HEART: Normal rate, regular. ABDOMEN: Soft. Nontender, nondistended, bowel sounds positive. MUSCULOSKELETAL: No cyanosis or clubbing. No pitting in the bilateral lower extremities. NEUROLOGIC: Grossly nonfocal. LABORATORY DATA: WBC 16.5, hemoglobin 8.1, platelets 77,000. Band count is improving. INR 1.3. Cr eatinine 2.82, BUN 58. Potassium 3.5. Blood sugar is 92 on D10 drip. Total bilirubin 2.1, is once again down trending. The sputum aspirate is growing Staph aureus, which is pansensitive. C. diff an tigen and toxin are both positive with a positive lactoferrin. Blood cultures x3 are negative to jhony e. IMAGING: Chest x-ray demonstrates progressive edema and bilateral pleural effusions. Heart is enlar ged. Endotracheal tube is in good position. ASSESSMENT: 1. Acute hypoxic respiratory failure, resolved. 2. Severe sepsis. 3. Healthcare-associated pneumonia secondary to methicillin-sensitive staphylococcus aureus. 4. Clostridium difficile infection. 5. Subdural hematoma. 6. Status epilepticus, resolved. 7. Acute kidney injury, stable. 8. Hypoglycemia, requiring D10 drip still. 9. Acute on chronic systolic heart failure. 10. Metabolic encephalopathy versus anoxic brain injury, unknown. PLAN: We will continue to treat the patient's known infections. We will support him through the yefri durand. If his mentation allows, CPAP trial and extubation will be considered. For the time being, we will hold sedating medications moving forward. Pulmonary Critical Care will continue to follow maya e the patient remains in this location. Critical care time: 30 minutes.
[2017-06-22] MEDS: cefTRIAXone\\ROCEPHIN 2 GM in Sodium Chloride 0.9% 100 ML IVPB SCH (11:43)
[2017-06-22] MEDS ORDERED: Digoxin 0.5 MG/2 ML AMP SLOW IVP SCH (14:00)
--- NOTE | 2017-06-22 14:12 | PRG ---
DATE OF SERVICE: 06/22/2017 SUBJECTIVE: Mr. Chandler remains intubated on the ventilator. REVIEW OF SYSTEMS: Not obtainable. PHYSICAL EXAMINATION: VITAL SIGNS: Blood pressure 106/92, pulse 90-100, it is atrial fibrillation, irregular. LUNGS: No wheezing, rales or rhonchi. CARDIAC: Irregularly irregular. ABDOMEN: Soft, nontender. EXTREMITIES: Mild edema. ASSESSMENT: 1. Intracranial hemorrhage. 2. Respiratory failure. 3. Anemia. 4. Congestive heart failure, systolic. 5. The patient appears to be in congestive heart failure. PLAN: 1. We will give a single dose of digoxin. 2. He is back on furosemide.
--- NOTE | 2017-06-22 15:30 | PRG ---
DATE OF SERVICE: 06/22/2017 SUBJECTIVE: The patient was seen and examined in ICU and remains intubated and not very much verbal. OBJECTIVE: GENERAL: An elderly male, who is intubated. VITAL SIGNS: Temperature 97.5, pulse 76, respiratory rate 18, blood pressure 106/92. HEENT: Intubated. CARDIOVASCULAR: S1, S2 heard. RESPIRATORY: Clear. ABDOMEN: Soft. MUSCULOSKELETAL: No tenderness, no edema. DERMATOLOGIC: No skin rash. NEUROLOGIC: not responsive. PSYCHIATRIC: not assessed. LABORATORY DATA: Hemoglobin is 8.1, potassium 3.5, BUN 58, creatinine is 2.8. ASSESSMENT AND PLAN: 1. Acute kidney injury. Renal function continues to get worse. No acute indication for dialysis. 2. Altered mentation - not significant improvement. 3. Acidosis. 4. Hypokalemia, replace and monitor. 5. Hypoalbuminemia secondary to respiratory failure, intubated. 6. Plan is to monitor renal function closely. [facility]
[2017-06-22] MEDS: Famotidine/PF 20 mg/2ml Vial SLOW IVP SCH (21:03)
[2017-06-23] MEDS: Vancomycin HCl 25 MG/ML Oral PO SCH ×4 (03:17→21:02)
[2017-06-23 05:12] LABS: Band 6 % (5-11); Eosinophils 2 % (0-10); Hemoglobin 8.6 g/dL (14.0-18.0); Hypochromia SLIGHT = 6-15 cells (100X) (0-5/hpf); Lymphocytes 4 % (21-51); MDiff Complete? YES; Mean Corpuscular HGB CONC 31.2 g/dL (32.0-36.0); Mean Corpuscular Hemoglobin 27.3 pg (27.0-31.0); Mean Corpuscular Volume 87.5 fl (80.0-94.0); Mean Platelet Volume 7.5 fL (7.4-10.4); Monocytes 4 % (0-10); Neutrophil 82 % (42-75); PLT Morphology Comment Appears Adequate; Platelet Count 383 thou/uL (130-400); Polychromasia SLIGHT = 2-3 cells (100X) (0-2/hpf); RBC Distribution Width 17.7 % (11.5-14.5); Reactive Lymphocytes 2 % (0-10); Red Blood Cell (RBC) Count 3.14 mill/uL (4.70-6.10); White Blood Cell (WBC) Count 21.4 thou/uL (4.8-10.8)
[2017-06-23 05:17] LABS: Anion Gap 15 mmol/L (10-20); BUN (Urea Nitrogen) 71 mg/dL (8.4-25.7); Calc. Creatinine Clearance 38 mL/min (70-130); Calcium 8.8 mg/dL (7.8-10.44); Carbon Dioxide 18 mmol/L (23-31); Chloride 105 mmol/L (98-107); Estimated GFR-MDRD 27; Glucose 102 mg/dL (83-110); Magnesium 1.8 mg/dL (1.6-2.6); Phosphorus 5.5 mg/dL (2.3-4.7); Potassium 3.3 mmol/L (3.5-5.1); Sodium 135 mmol/L (136-145)
[2017-06-23] MEDS: Furosemide 40 MG/4 ML VIAL SLOW IVP SCH ×2 (06:17→09:17)
[2017-06-23] MEDS: metroNIDAZOLE 500 MG in Premix Bag 1 BAG IVPB SCH ×3 (06:17→21:02)
--- NOTE | 2017-06-23 09:11 | PRG ---
DATE OF SERVICE: 06/23/2017 NEPHROLOGY PROGRESS NOTE SUBJECTIVE: Patient was seen and examined on ICU, remains intubated. OBJECTIVE: GENERAL: This is an elderly -[place] male, he is intubated and staying in ICU. VITAL SIGNS: Temperature 98.0, pulse 105, respiratory rate 38, blood pressure 110/66. HEENT: Intubated. CARDIOVASCULAR SYSTEM: S1 and S2 heard. RESPIRATORY: Tachypnea present. GASTROINTESTINAL: Abdomen is soft. MUSCULOSKELETAL: 1+ edema. DERMATOLOGIC: Chronic skin lesions. NEUROLOGIC: Intubated. PSYCHIATRIC: Mood and affect are not assessed. LABORATORY DATA: Potassium is 3.3, BUN is 71, creatinine is 2.8. ASSESSMENT AND PLAN: 1. Acute kidney injury. Renal function is stable, but no significant urine output. No acute indica tion for dialysis. 2. Hypokalemia, mild. 3. Hyponatremia. 4. Edema, chronic. 5. Proteinuria. 6. Acute hypoxic respiratory failure. 7. Anemia. 8. Altered mentation. No acute indication for dialysis. We will follow.
[2017-06-23] MEDS: Citrucel 500 MG TAB PO SCH ×2 (09:17→21:01)
[2017-06-23] MEDS: levETIRAcetam In NaCl (Iso-Os) 1,000 MG in Premix Bag 1 BAG IVPB SCH ×4 (09:18→21:02)
[2017-06-23] MEDS: Polyethylene Glycol 3350 17 GM Packet PO SCH (09:18)
[2017-06-23] MEDS: Senokot S 8.6-50 MG TAB PO SCH ×2 (09:18→21:02)
[2017-06-23] MEDS: Silver Sulfadiazine 1% Cream 50 GM TUBE TP SCH (09:18)
[2017-06-23] MEDS: Dextrose 10% in Water 1,000 ML IV SCH (09:19)
[2017-06-23] MEDS: Witch Hazel-Glycerin 1 EACH JAR TOP SCH ×3 (09:19→21:22)
--- NOTE | 2017-06-23 10:12 | PRG ---
DATE OF SERVICE: 06/23/2017 SUBJECTIVE: Austin Chandler has remained encephalopathic, alert, awake, and responsive. PHYSICAL EXAMINATION: VITAL SIGNS: Upon arrival, he is on CPAP. He was breathing 40 times a minute, pulse 130. Sats are 88 on 21% FiO2, temperature is 98, blood pressure 110/66. He has got foul smelling stools. I's & O' s have been 1283 in and 475 out. CHEST: Extensive rhonchi and crackles. CARDIAC: Sinus tachycardia. ABDOMEN: Soft, distended. NEUROLOGIC: Unresponsive. LABORATORY DATA AND IMAGING DATA: His white count 21,000, hemoglobin and hematocrit 8 and 27, platel et count 383, 80 segs, 6 bands. BUN and creatinine 71 and 2.8, azotemia. Last chest x-ray showed ex tensive bilateral infiltrates. IMPRESSION: 1. Respiratory failure/fluid overload. 2. Clostridium difficile colitis. 3. Cardiomyopathy. 4. Atrial fibrillation. 5. Intracranial hemorrhage. 6. Seizure disorder. PLAN: He is clearly not weanable at this stage. Vent is being adjusted. Continue antibiotics, nebu lizer treatments, and supportive care. We will provide C. difficile with vancomycin. Prognosis remains grave. One half hour critical care time.
--- NOTE | 2017-06-23 10:40 | RAD ---
PORTABLE CHEST: HISTORY: CHF. COMPARISON: 06/22/17. FINDINGS/IMPRESSION: Cardiomegaly with vascular congestion. Perihilar infiltrates more prominent on the right consistent with edema. The infiltrates appear improved when compared to 06/22/17. POS: CRISTIANH
[2017-06-23] MEDS: cefTRIAXone\\ROCEPHIN 2 GM in Sodium Chloride 0.9% 100 ML IVPB SCH (11:22)
--- NOTE | 2017-06-23 11:45 | PDOC.PN ---
- Subjective Encounter Start Date: 06/23/17 Encounter Start Time: 09:20 -: non-verbal Chart reviewed. Pt hemodynamically stable, no acute events noted overnight. PC talked with son, he chiang dnot contacted the pts brothers yet. Will try to reach out to them today No fevers recorded, resp status stable. seems to be toleratinv IV abx. Labs largely stable x for rising WBC - Objective Resuscitation Status: Resuscitation Status FULL:Full Resuscitation MAR Reviewed: Yes Vital Signs & Weight: Vital Signs (12 hours) Temp Pulse Resp BP 06/23/17 11:00 99.7 F H 06/23/17 10:00 22 H 06/23/17 09:51 101 H 116/62 06/23/17 08:00 98.0 F 105 H 38 H 06/23/17 07:00 98.0 F 06/23/17 04:00 97.8 F 06/23/17 03:01 91 112/63 06/23/17 00:00 97.8 F Weight Admit Weight 260 lb 4.8 oz Weight 251 lb 15.814 oz Most Recent Monitor Data Heart Rate from ECG 88 NIBP 126/71 NIBP BP-Mean 83 Respiration from ECG 20 SpO2 99 I&O: 06/22/17 06/23/17 06/24/17 06:59 06:59 06:59 Intake Total 2344 1283 Output Total 550 475 60 Balance 1794 808 -60 Result Diagrams: 06/23/17 04:51 06/23/17 04:51 Additional Labs: Accuchecks 06/23/17 06/23/17 06/22/17 07:06 05:06 21:29 POC Glucose 94 109 78 06/22/17 06/22/17 06/22/17 16:39 11:42 08:53 POC Glucose 85 111 H 104 Radiology Reviewed by me: Yes EKG Reviewed by me: Yes Phys Exam - Physical Examination Constitutional: NAD intubated on vent, not responding HEENT: moist MMs, sclera anicteric, oral pharynx no lesions Neck: no nodes, no JVD, supple, full ROM Respiratory: no wheezing, no rhonchi right lateral crakles hear, bibasilar rales heard Cardiovascular: RRR, no significant murmur, no rub Gastrointestinal: soft, no distention, positive bowel sounds Musculoskeletal: edema present unresponsive off of sedation, obviosuly not following commands Lymphatic: no nodes Skin: no rash, normal turgor, cap refill <2 seconds Dx/Plan (1) CKD (chronic kidney disease) stage 3, GFR 30-59 ml/min Code(s): N18.3 - CHRONIC KIDNEY DISEASE, STAGE 3 (MODERATE) Status: Acute Comment: CKD stable, Cr up to 2.8+ (2) HTN (hypertension) Code(s): I10 - ESSENTIAL (PRIMARY) HYPERTENSION Status: Acute Qualifiers: Hypertension type: essential hypertension Qualified Code(s): I10 - Essential (primary) hypertension Comment: BP satisfactory.. (3) Cardiomyopathy Code(s): I42.9 - CARDIOMYOPATHY, UNSPECIFIED Status: Chronic Qualifiers: Cardiomyopathy type: unspecified Qualified Code(s): I42.9 - Cardiomyopathy , unspecified Comment: Has pacemaker defibrillator in place. (4) Acute intracranial hemorrhage Code(s): I62.9 - NONTRAUMATIC INTRACRANIAL HEMORRHAGE, UNSPECIFIED Status: Acute (5) Seizure disorder as sequela of cerebrovascular accident Code(s): I69.398 - OTHER SEQUELAE OF CEREBRAL INFARCTION; G40.909 - EPILEPSY, UNSP, NOT INTRACTABLE, WITHOUT STATUS EPILEPTICUS Status: Acute (6) Acute hypoxemic respiratory failure Code(s): J96.01 - ACUTE RESPIRATORY FAILURE WITH HYPOXIA Status: Acute Comment: on CPAP, breathing on own, but no higher function off sedations. PC consult to contact family and assist with decision making (7) Acute on chronic systolic (congestive) heart failure Code(s): I50.23 - ACUTE ON CHRONIC SYSTOLIC (CONGESTIVE) HEART FAILURE Status : Acute Comment: increase lung sounds, CXR with increased edema, give lasix. (8) NAHUN (acute kidney injury) Code(s): N17.9 - ACUTE KIDNEY FAILURE, UNSPECIFIED Status: Acute (9) Paroxysmal A-fib Code(s): I48.0 - PAROXYSMAL ATRIAL FIBRILLATION Status: Chronic (10) Clostridium difficile colitis Status: Acute Comment: On flagyl, po Vanc. On IV rocephin for MSSa poneumonia. stools still watery. [facility] fo rnow (11) VAP (ventilator-associated pneumonia) Code(s): J95.851 - VENTILATOR ASSOCIATED PNEUMONIA Status: Acute Comment: new, not present on admit, cx with MSSa. Covered. (12) Severe sepsis with acute organ dysfunction Code(s): A41.9 - SEPSIS, UNSPECIFIED ORGANISM; R65.20 - SEVERE SEPSIS WITHOUT SEPTIC SHOCK Status: Acute Comment: not present on admit. Insetting of increasing WBC, tachycardia, MSSA bacterial VAP and NAHUN on CKD, pt meets severe sepsis criteria
[2017-06-23] MEDS: Famotidine/PF 20 mg/2ml Vial SLOW IVP SCH (21:02)
[2017-06-24] MEDS: Vancomycin HCl 25 MG/ML Oral PO SCH ×4 (04:37→22:52)
[2017-06-24 05:37] LABS: Anion Gap 13 mmol/L (10-20); BUN (Urea Nitrogen) 86 mg/dL (8.4-25.7); Calc. Creatinine Clearance 36 mL/min (70-130); Calcium 8.7 mg/dL (7.8-10.44); Carbon Dioxide 19 mmol/L (23-31); Chloride 104 mmol/L (98-107); Estimated GFR-MDRD 25; Glucose 132 mg/dL (83-110); Magnesium 1.7 mg/dL (1.6-2.6); Phosphorus 5.1 mg/dL (2.3-4.7); Potassium 3.1 mmol/L (3.5-5.1); Sodium 133 mmol/L (136-145)
[2017-06-24] MEDS: metroNIDAZOLE 500 MG in Premix Bag 1 BAG IVPB SCH ×3 (06:07→22:53)
[2017-06-24 06:39] LABS: Band 3 % (5-11); Eosinophils 1 % (0-10); Hemoglobin 7.9 g/dL (14.0-18.0); Hypochromia SLIGHT = 6-15 cells (100X) (0-5/hpf); Lymphocytes 7 % (21-51); MDiff Complete? YES; Mean Corpuscular HGB CONC 31.3 g/dL (32.0-36.0); Mean Corpuscular Hemoglobin 27.4 pg (27.0-31.0); Mean Corpuscular Volume 87.5 fl (80.0-94.0); Mean Platelet Volume 7.7 fL (7.4-10.4); Metamyelocyte 2 % (0-0); Monocytes 7 % (0-10); Neutrophil 79 % (42-75); PLT Morphology Comment Appears Adequate; Platelet Count 341 thou/uL (130-400); RBC Distribution Width 17.8 % (11.5-14.5); Reactive Lymphocytes 1 % (0-10); White Blood Cell (WBC) Count 20.1 thou/uL (4.8-10.8)
[2017-06-24] MEDS: Witch Hazel-Glycerin 1 EACH JAR TOP SCH ×3 (08:20→21:22)
[2017-06-24] MEDS: Silver Sulfadiazine 1% Cream 50 GM TUBE TP SCH (08:25)
[2017-06-24] MEDS: Furosemide 40 MG/4 ML VIAL SLOW IVP SCH (09:25)
[2017-06-24] MEDS: Citrucel 500 MG TAB PO SCH ×2 (09:25→21:22)
[2017-06-24] MEDS: Senokot S 8.6-50 MG TAB PO SCH ×2 (09:39→21:22)
[2017-06-24] MEDS: Polyethylene Glycol 3350 17 GM Packet PO SCH (09:39)
[2017-06-24] MEDS: levETIRAcetam In NaCl (Iso-Os) 1,000 MG in Premix Bag 1 BAG IVPB SCH ×4 (10:30→22:52)
[2017-06-24] MEDS: cefTRIAXone\\ROCEPHIN 2 GM in Sodium Chloride 0.9% 100 ML IVPB SCH (12:20)
--- NOTE | 2017-06-24 12:35 | PDOC.PN ---
- Subjective Encounter Start Date: 06/24/17 Encounter Start Time: 09:20 -: non-verbal no significant change overngiht. No events reported, still intubate don vent, stil not responsive off of sedation pulm note reviewed - Objective Resuscitation Status: Resuscitation Status FULL:Full Resuscitation MAR Reviewed: Yes Vital Signs & Weight: Vital Signs (12 hours) Temp Pulse Resp BP 06/24/17 11:14 74 121/66 06/24/17 10:00 26 H 06/24/17 08:33 65 138/67 06/24/17 08:00 98.0 F 22 H 06/24/17 04:00 97.7 F 06/24/17 02:44 72 Weight Admit Weight 260 lb 4.8 oz Weight 253 lb 8.505 oz Most Recent Monitor Data Heart Rate from ECG 65 NIBP 121/66 NIBP BP-Mean 93 Respiration from ECG 19 SpO2 92 I&O: 06/23/17 06/24/17 06/25/17 06:59 06:59 06:59 Intake Total 1283 2125 280 Output Total 475 300 178 Balance 808 1825 102 Result Diagrams: 06/24/17 04:30 06/24/17 04:30 Additional Labs: Accuchecks 06/23/17 06/23/17 15:36 00:28 POC Glucose 111 H 96 Phys Exam - Physical Examination Constitutional: NAD HEENT: PERRLA, moist MMs, sclera anicteric, oral pharynx no lesions Neck: no nodes, no JVD, supple right sided crackles, no wheezes, no rhonchi Cardiovascular: RRR, no rub Gastrointestinal: soft, non-tender, no distention, positive bowel sounds Musculoskeletal: pulses present, edema present withdraws from pain to BLE, BUE Lymphatic: no nodes Skin: no rash, normal turgor, cap refill <2 seconds Deviation from normal: burn wounds healing well Dx/Plan (1) CKD (chronic kidney disease) stage 3, GFR 30-59 ml/min Code(s): N18.3 - CHRONIC KIDNEY DISEASE, STAGE 3 (MODERATE) Status: Acute Comment: CKD stable, Cr up to 2.96. Renal following, not a good HD candidate (2) HTN (hypertension) Code(s): I10 - ESSENTIAL (PRIMARY) HYPERTENSION Status: Acute Qualifiers: Hypertension type: essential hypertension Qualified Code(s): I10 - Essential (primary) hypertension Comment: BP satisfactory.. (3) Cardiomyopathy Code(s): I42.9 - CARDIOMYOPATHY, UNSPECIFIED Status: Chronic Qualifiers: Cardiomyopathy type: unspecified Qualified Code(s): I42.9 - Cardiomyopathy , unspecified Comment: Has pacemaker defibrillator in place. (4) Acute intracranial hemorrhage Code(s): I62.9 - NONTRAUMATIC INTRACRANIAL HEMORRHAGE, UNSPECIFIED Status: Acute (5) Seizure disorder as sequela of cerebrovascular accident Code(s): I69.398 - OTHER SEQUELAE OF CEREBRAL INFARCTION; G40.909 - EPILEPSY, UNSP, NOT INTRACTABLE, WITHOUT STATUS EPILEPTICUS Status: Acute (6) Acute hypoxemic respiratory failure Code(s): J96.01 - ACUTE RESPIRATORY FAILURE WITH HYPOXIA Status: Acute Comment: on CPAP, breathing on own, but no higher function off sedations. PC consult to contact family and assist with decision making (7) Acute on chronic systolic (congestive) heart failure Code(s): I50.23 - ACUTE ON CHRONIC SYSTOLIC (CONGESTIVE) HEART FAILURE Status : Acute Comment: increase lung sounds, CXR with increased edema, give lasix. (8) NAHUN (acute kidney injury) Code(s): N17.9 - ACUTE KIDNEY FAILURE, UNSPECIFIED Status: Acute (9) Paroxysmal A-fib Code(s): I48.0 - PAROXYSMAL ATRIAL FIBRILLATION Status: Chronic (10) Clostridium difficile colitis Status: Acute Comment: On flagyl, po Vanc. On IV rocephin for MSSa poneumonia. stools still watery. [facility] fo rnow (11) VAP (ventilator-associated pneumonia) Code(s): J95.851 - VENTILATOR ASSOCIATED PNEUMONIA Status: Acute Comment: new, not present on admit, cx with MSSa. Covered. (12) Severe sepsis with acute organ dysfunction Code(s): A41.9 - SEPSIS, UNSPECIFIED ORGANISM; R65.20 - SEVERE SEPSIS WITHOUT SEPTIC SHOCK Status: Acute Comment: not present on admit. Insetting of increasing WBC, tachycardia, MSSA bacterial VAP and NAHUN on CKD, pt meets severe sepsis criteria - Plan cont current plan of care * . need to discuss plan of care with family
[2017-06-24] MEDS: Dextrose 10% in Water 1,000 ML IV SCH (13:03)
--- NOTE | 2017-06-24 16:42 | PRG ---
DATE OF SERVICE: 06/24/2017 SUBJECTIVE: Mr. Austin Chandler remains intubated on the vent. He has got extensive ulcers on both leg s. Wound care is taking care of him. OBJECTIVE: VITAL SIGNS: This morning, blood pressure 138/67, temperature 98, respirations 18. His I's and O's are 1283 in and 475 out. CHEST: Rhonchi, crackles. CARDIAC: Sinus. ABDOMEN: Soft. LABORATORY DATA: White count 20,000, H&H is 7 and 25, platelet count 343. BUN and creatinine are 86 and 2.9, potassium 3.1. IMPRESSION: 1. Respiratory failure. 2. Renal failure. 3. Cardiomyopathy. 4. Intracerebral hemorrhage. 5. Seizures. 6. C. difficile colitis. PLAN: P.o. vancomycin, seizure medication on board. He is severely encephalopathic. He is not weanable until his overall status improves. Continue nutrition and PT. One-half hour critical care time.
--- NOTE | 2017-06-24 16:59 | PRG ---
DATE OF SERVICE: 06/24/2016 NEPHROLOGY PROGRESS NOTE SUBJECTIVE: The patient is seen in ICU, intubated, minimally responsive. Case updated with bedside nurse. PHYSICAL EXAMINATION: VITAL SIGNS: Temperature 97.6, pulse 74, respiratory rate 16, blood pressure 121/66. HEENT: Intubated. CARDIOVASCULAR: S1 and S2 heard. Rate and rhythm regular. RESPIRATORY: Clear anteriorly. GASTROINTESTINAL: Abdomen is soft. MUSCULOSKELETAL: 1+ edema. DERMATOLOGIC: Chronic skin lesions. NEUROLOGIC: Intubated and minimally responsive. LABORATORY DATA: Potassium 3.1, BUN 86, creatinine 2.9. ASSESSMENT AND PLAN: 1. Acute kidney injury on chronic kidney disease. 2. Unless renal function continues to get worse, no acute indication for dialysis. If altered menta tion continues, could consider dialysis for clearance of toxins. 3. Hypokalemia, replaced. Recommend 40 mEq and replace potassium and magnesium and monitor potassiu m and magnesium. 4. Hyponatremia. 5. Edema, better. 6. Proteinuria. 7. Altered mentation 8. Acute hypoxic respiratory failure. No acute indication for dialysis, but could consider dialysis for altered mentation.
[2017-06-24] MEDS ORDERED: Potassium Chloride 40 MEQ in Sodium Chloride 0.9% 250 ML 250 ML IVPB SCH (20:30)
[2017-06-24] MEDS: Famotidine/PF 20 mg/2ml Vial SLOW IVP SCH (22:52)
[2017-06-25] MEDS: Vancomycin HCl 25 MG/ML Oral PO SCH ×4 (03:59→21:41)
[2017-06-25 04:54] LABS: Anion Gap 13 mmol/L (10-20); BUN (Urea Nitrogen) 90 mg/dL (8.4-25.7); Calc. Creatinine Clearance 43 mL/min (70-130); Calcium 8.7 mg/dL (7.8-10.44); Carbon Dioxide 19 mmol/L (23-31); Chloride 107 mmol/L (98-107); Estimated GFR-MDRD 31; Glucose 133 mg/dL (83-110); Magnesium 1.8 mg/dL (1.6-2.6); Phosphorus 4.7 mg/dL (2.3-4.7); Potassium 3.2 mmol/L (3.5-5.1); Sodium 136 mmol/L (136-145)
[2017-06-25 05:05] LABS: Band 4 % (5-11); Eosinophils 1 % (0-10); Hemoglobin 8.1 g/dL (14.0-18.0); Lymphocytes 1 % (21-51); MDiff Complete? YES; Mean Corpuscular HGB CONC 31.5 g/dL (32.0-36.0); Mean Corpuscular Hemoglobin 27.4 pg (27.0-31.0); Mean Platelet Volume 7.6 fL (7.4-10.4); Metamyelocyte 3 % (0-0); Monocytes 3 % (0-10); Myelocyte 2 % (0-0); Neutrophil 86 % (42-75); PLT Morphology Comment Appears Adequate; Platelet Count 301 thou/uL (130-400); RBC Distribution Width 17.8 % (11.5-14.5); Red Blood Cell (RBC) Count 2.95 mill/uL (4.70-6.10); White Blood Cell (WBC) Count 23.6 thou/uL (4.8-10.8)
[2017-06-25] MEDS: metroNIDAZOLE 500 MG in Premix Bag 1 BAG IVPB SCH ×3 (07:40→21:42)
[2017-06-25] MEDS: levETIRAcetam In NaCl (Iso-Os) 1,000 MG in Premix Bag 1 BAG IVPB SCH ×4 (08:49→21:42)
[2017-06-25] MEDS: Citrucel 500 MG TAB PO SCH ×2 (08:53→21:39)
[2017-06-25] MEDS: Senokot S 8.6-50 MG TAB PO SCH ×2 (08:53→21:41)
[2017-06-25] MEDS: Furosemide 40 MG/4 ML VIAL SLOW IVP SCH (08:53)
[2017-06-25] MEDS: Polyethylene Glycol 3350 17 GM Packet PO SCH (08:53)
[2017-06-25] MEDS: Silver Sulfadiazine 1% Cream 50 GM TUBE TP SCH (08:54)
[2017-06-25] MEDS: Witch Hazel-Glycerin 1 EACH JAR TOP SCH ×3 (08:55→21:43)
[2017-06-25] MEDS: cefTRIAXone\\ROCEPHIN 2 GM in Sodium Chloride 0.9% 100 ML IVPB SCH (11:10)
--- NOTE | 2017-06-25 11:18 | PRG ---
DATE OF SERVICE: 06/25/2017 SERVICE: Pulmonary Medicine. INTERVAL HISTORY: The patient is doing okay from a cardiovascular and respiratory standpoint. Unfor tunately, his brain is just simply not waking up. He cannot provide any additional elements of the h istory. He has a persistent diarrhea. Rectal tube remains in place. Otherwise, there has been no i nterval change to his condition. PHYSICAL EXAMINATION: VITAL SIGNS: Afebrile, pulse 84, blood pressure 107/56, respirations 23, saturation 100% on room air . GENERAL: The patient is awake and alert. He is in no apparent distress. LUNGS: Decent air entry. Dependent crackles are minimal. HEART: Normal rate, regular. ABDOMEN: Soft, nontender, nondistended. Bowel sounds are positive. MUSCULOSKELETAL: No cyanosis or clubbing. There is trace pitting in the bilateral lower extremities . NEUROLOGIC: Grossly nonfocal. LABORATORY DATA: WBC 23.6, neutrophil count is 86% with 4% bands. This count is up trending. Hemog lobin is stable. Platelets 301. Creatinine 2.48 and gently down trending. BUN is 90. Basic metabo lic profile is otherwise unremarkable. Magnesium and phosphorus fall within the normal limits. ASSESSMENT: 1. Acute hypoxic respiratory failure, improving. 2. Severe sepsis. 3. Healthcare-associated pneumonia secondary to methicillin-sensitive Staphylococcus aureus. 4. Clostridium difficile infection. 5. Subdural hematoma. 6. Seizure. 7. Acute kidney injury, improving. 8. Acute on chronic systolic heart failure. 9. Metabolic encephalopathy versus anoxic brain injury. PLAN: We will continue supportive care. Palliative care is going to have some conversations with e patient's family. At this point, I do think it would be reasonable to transition over to comfort c are only knowing how weak the patient was at baseline. We are fast approaching a period of time in [facility] we will likely need to think about a tracheostomy and PEG tube placement if the family thinks e patient would want to live in that kind of condition. Otherwise, it would be most appropriate to t ransition over to comfort care only. Multiple ventilator adjustments have been made today. CRITICAL CARE TIME: 30 minutes.
--- NOTE | 2017-06-25 13:38 | PDOC.PN ---
- Subjective Encounter Start Date: 06/25/17 Encounter Start Time: 09:10 -: non-verbal Pt seen earlier on rounds. After my visit and chart review, i called his eldest son in [place]. We discusse dthe patients condition and current pending issues, advanced directives. Son stated pt would want everything done at this point. We discussed temporary dialysis to see if removable toxins could improve mental status. We discussed ventilator, cardiac arrest. For now, he wants to do everything possible. When we discussed intermediate school teacher issues, such as feeding tube or trach, he was not sure if he wanted that. He also mentioned that he was in the process of getting MPOA for the brothers in the [place] area so they could make medical decisions, as they were closer. Son was very unsure of making much in the way of intermediate school teacher decisions Pt afebrile, no events, still on Vent, SIMV. Labs okay, Cr better. Pt of sedation 4-5 days now, has gag reflex, withdraws form pain to RUE, BLE, but not LUE. No seizure activity - Objective Resuscitation Status: Resuscitation Status FULL:Full Resuscitation MAR Reviewed: Yes Vital Signs & Weight: Vital Signs (12 hours) Temp Pulse Resp BP Pulse Ox 06/25/17 12:00 20 06/25/17 10:58 86 103/59 L 06/25/17 10:00 22 H 06/25/17 08:00 98.2 F 81 20 98 06/25/17 07:25 74 125/69 06/25/17 07:00 98.2 F 06/25/17 06:00 17 06/25/17 04:00 17 06/25/17 02:30 77 06/25/17 02:00 17 Weight Admit Weight 260 lb 4.8 oz Weight 253 lb 8.505 oz Most Recent Monitor Data Heart Rate from ECG 87 NIBP 103/70 NIBP BP-Mean 86 Respiration from ECG 26 SpO2 100 I&O: 06/24/17 06/25/17 06/26/17 06:59 06:59 06:59 Intake Total 2125 2225 350 Output Total 300 1373 275 Balance 1825 852 75 Result Diagrams: 06/25/17 04:00 06/25/17 04:00 Additional Labs: Accuchecks 06/25/17 06/24/17 06/24/17 01:27 21:15 15:45 POC Glucose 98 99 143 H 06/24/17 06/24/17 06/24/17 13:02 08:06 04:42 POC Glucose 143 H 119 H 135 H 06/24/17 06/23/17 01:44 21:00 POC Glucose 137 H 138 H Radiology Reviewed by me: Yes EKG Reviewed by me: Yes Phys Exam - Physical Examination Constitutional: NAD HEENT: moist MMs, sclera anicteric, oral pharynx no lesions Pupils reactive to light bilaterally Neck: no nodes, no JVD, supple Respiratory: no wheezing, no rales, no rhonchi, clear to auscultation bilateral Cardiovascular: RRR, no significant murmur, no rub Gastrointestinal: soft, non-tender, no distention, positive bowel sounds Musculoskeletal: pulses present, edema present moves BLE and RUE in response to pain, not LUE Lymphatic: no nodes Deviation from normal: off sedation, on vent, unresponsive Skin: no rash, normal turgor, cap refill <2 seconds Dx/Plan (1) CKD (chronic kidney disease) stage 3, GFR 30-59 ml/min Code(s): N18.3 - CHRONIC KIDNEY DISEASE, STAGE 3 (MODERATE) Status: Acute Comment: CKD stable, Cr down to 2.48. Renal following, not a good HD candidate. Renal going to acutely dialyze to see if any removable toxins can be removed to improve PT status (2) HTN (hypertension) Code(s): I10 - ESSENTIAL (PRIMARY) HYPERTENSION Status: Acute Qualifiers: Hypertension type: essential hypertension Qualified Code(s): I10 - Essential (primary) hypertension Comment: BP satisfactory.. (3) Cardiomyopathy Code(s): I42.9 - CARDIOMYOPATHY, UNSPECIFIED Status: Chronic Qualifiers: Cardiomyopathy type: unspecified Qualified Code(s): I42.9 - Cardiomyopathy , unspecified Comment: Has pacemaker defibrillator in place. (4) Acute intracranial hemorrhage Code(s): I62.9 - NONTRAUMATIC INTRACRANIAL HEMORRHAGE, UNSPECIFIED Status: Acute (5) Seizure disorder as sequela of cerebrovascular accident Code(s): I69.398 - OTHER SEQUELAE OF CEREBRAL INFARCTION; G40.909 - EPILEPSY, UNSP, NOT INTRACTABLE, WITHOUT STATUS EPILEPTICUS Status: Acute (6) Acute hypoxemic respiratory failure Code(s): J96.01 - ACUTE RESPIRATORY FAILURE WITH HYPOXIA Status: Acute Comment: on SIMV, breathing on own, but no higher function off sedation. PC consult to contact family and assist with decision making (7) Acute on chronic systolic (congestive) heart failure Code(s): I50.23 - ACUTE ON CHRONIC SYSTOLIC (CONGESTIVE) HEART FAILURE Status : Acute Comment: better lung sounds today (8) NAHUN (acute kidney injury) Code(s): N17.9 - ACUTE KIDNEY FAILURE, UNSPECIFIED Status: Acute (9) Paroxysmal A-fib Code(s): I48.0 - PAROXYSMAL ATRIAL FIBRILLATION Status: Chronic (10) Clostridium difficile colitis Status: Acute Comment: On flagyl, po Vanc. On IV rocephin for MSSA poneumonia. stools still watery. CCM for now (11) VAP (ventilator-associated pneumonia) Code(s): J95.851 - VENTILATOR ASSOCIATED PNEUMONIA Status: Acute Comment: new, not present on admit, cx with MSSa. Covered. (12) Severe sepsis with acute organ dysfunction Code(s): A41.9 - SEPSIS, UNSPECIFIED ORGANISM; R65.20 - SEVERE SEPSIS WITHOUT SEPTIC SHOCK Status: Acute Comment: not present on admit. Insetting of increasing WBC, tachycardia, MSSA bacterial VAP and NAHUN on CKD, pt meets severe sepsis criteria - Plan * .
[2017-06-25 15:00] LABS: HBSAB Concentration 0.21 mIU/mL; HBSAg Index 0.15 S/CO (0-0.99); Hep B Surf AB Non-Reactive (NonReactive); Hep B Surf Ag Non-Reactive S/CO (NonReactive); Hep C IgG Ab Non-Reactive (NonReactive); Hep C Index 0.28 S/CO (0-0.79)
[2017-06-25] MEDS: Lorazepam 2 MG/ML VIAL SLOW IVP PRN (15:34)
[2017-06-25 16:35] LABS: Hep B Core Total Ab Indeterminate (NonReactive)
[2017-06-25] MEDS ORDERED: Sodium Chloride 0.9% 1,000 ML IV SCH (17:45)
--- NOTE | 2017-06-25 19:28 | PRG ---
DATE OF SERVICE: 06/25/2017 SUBJECTIVE: This is a 72-year-old gentleman being seen for acute kidney injury and metabolic encepha lopathy. The patient is still resting and comatose. OBJECTIVE: GENERAL: The patient is resting. VITAL SIGNS: Afebrile, pulse 70, breathing at 16, blood pressure 110/70. HEAD/NECK: Normocephalic. Atraumatic. EYES: EOMI. No deformity. EARS: Clear. No ulcers. NOSE: Intact. No lesions. MOUTH: Clear. No discharge. THROAT: Clear. No exudate. LUNGS: Clear. No crackles. CARDIAC: S1, S2. No rub. ABDOMEN: Benign. BS+. GENITALIA/RECTUM: Vazquez absent. BACK/EXTREMITIES: Edema 0+ Ulcer-. NEUROLOGIC: The patient is comatose. SKIN: Rash- Bruise-. LYMPHATICS: Edema- Ulcer-. LABORATORY DATA: BUN is 90, potassium 3.2, creatinine 2.4. ASSESSMENT AND PLAN: 1. Acute kidney injury with chronic kidney disease, and possibly metabolic encephalopathy. Risks ve rsus benefits of dialysis were discussed with the patient and family and dialysis will be initiated t o see if that causes change in altered mentation. Overall, prognosis is extremely poor. 2. Metabolic acidosis. Plan dialysis. 3. Hypokalemia. We will dialyze the patient with a 4 K bath. Again, overall prognosis is very poor . Risks versus benefits of dialysis were discussed and the family wants to pursue. I would recommen d palliative care or hospice.
[2017-06-25] MEDS: Famotidine/PF 20 mg/2ml Vial SLOW IVP SCH (21:39)
[2017-06-26] MEDS: Vancomycin HCl 25 MG/ML Oral PO SCH ×4 (04:47→21:31)
--- NOTE | 2017-06-26 05:49 | CON ---
DATE OF CONSULTATION: 06/25/2017 A 72-year-old black male with respiratory failure on the ventilator whose relatives (son), s tationed in [place], gives his consent. The patient's BUN is 90, creatinine 2.48, GFR 31 and has pro gressed to require dialysis. I have been asked to place a dialysis catheter, his long-term prognosis is poor. He has suffered a subdural and family does not want PEG tubes or trach tubes, but wants to do dialysis this will improve his cephalopathy. I have been asked by Nephrology to place a Trialysi s catheter. The patient is unresponsive except to deep pain. He is on the ventilator. Immediately upon entering the room, I removed his midline catheters from his upper arm. Plan to place a bedside Trialysis catheter.
[2017-06-26 06:06] LABS: Anion Gap 12 mmol/L (10-20); BUN (Urea Nitrogen) 82 mg/dL (8.4-25.7); Calc. Creatinine Clearance 49 mL/min (70-130); Calcium 8.6 mg/dL (7.8-10.44); Carbon Dioxide 22 mmol/L (23-31); Chloride 106 mmol/L (98-107); Estimated GFR-MDRD 37; Glucose 124 mg/dL (83-110); Potassium 3.9 mmol/L (3.5-5.1); Sodium 136 mmol/L (136-145)
[2017-06-26 06:28] LABS: Band 4 % (5-11); Eosinophils 1 % (0-10); Hypochromia SLIGHT = 6-15 cells (100X) (0-5/hpf); Lymphocytes 7 % (21-51); MDiff Complete? YES; Mean Corpuscular HGB CONC 30.9 g/dL (32.0-36.0); Mean Corpuscular Volume 87.4 fl (80.0-94.0); Mean Platelet Volume 8.1 fL (7.4-10.4); Metamyelocyte 3 % (0-0); Monocytes 1 % (0-10); Neutrophil 84 % (42-75); Nucleated RBC 4 % (0); PLT Morphology Comment Appears Adequate; Platelet Count 235 thou/uL (130-400); RBC Distribution Width 17.9 % (11.5-14.5); Red Blood Cell (RBC) Count 2.96 mill/uL (4.70-6.10); Target Cells SLIGHT = 2-5 cells (100X) (0-1/hpf); White Blood Cell (WBC) Count 23.9 thou/uL (4.8-10.8)
--- NOTE | 2017-06-26 06:52 | OP ---
PREOPERATIVE DIAGNOSES: Subdural uremic and chronic kidney disease, acute on chronic renal failure, end-stage renal disease, needs acute dialysis access. Note, patient has bilateral upper arm cephalic vein IVs placed midline in a patient with chronic kidney disease. POSTOPERATIVE DIAGNOSES: Subdural uremic and chronic kidney disease, acute on chronic renal failure, end-stage renal disease, needs acute dialysis access. Note, patient has bilateral upper arm cephali c vein, IVs placed midline in a patient with chronic kidney disease. PROCEDURE: Right groin Trialysis catheter. SURGEON: Dr. Daniel Dior ANESTHESIA: None (encephalopathic.) PROCEDURE: At the patient's bedside, the right groin was clipped of hair, prepared with ChloraPrep, draped in routine fashion. Pannus held cephalad with tape. Groin prepared with ChloraPrep, draped i n routine fashion. Trocar catheter cannulated the femoral vein. J-wire threaded. Trocar catheter r emoved. Skin incised and enlarged sharply. Smaller and medium sized dilators placed and removed. D istal port of the Trialysis catheter placed over the J-wire in the femoral vein and secured with 3-0 silk suture and sterile dressing applied. Each port aspirated blood and flushed with heparinized mehdi ine solution. Patient tolerated the procedure well.
[2017-06-26] MEDS: metroNIDAZOLE 500 MG in Premix Bag 1 BAG IVPB SCH (07:07)
--- NOTE | 2017-06-26 09:15 | PRG ---
DATE OF SERVICE: 06/26/2017. SUBJECTIVE: This is a 72-year-old gentleman being seen for acute kidney injury, dialysis was perform ed for metabolic encephalopathy with no change. PHYSICAL EXAMINATION: GENERAL: Patient is resting. VITAL SIGNS: Afebrile, pulse 82, breathing at 16, blood pressure 128/76. HEENT: Normocephalic and atraumatic. NECK: Supple, no JVD. CHEST: Symmetrical and clear. CARDIOVASCULAR: Shows S1, S2. EXTREMITIES: No edema. LABORATORY: Hemoglobin is 8, bicarbonate is 22, creatinine 2.1, BUN 82. ASSESSMENT AND RECOMMENDATIONS: 1. Uremia, improving with no change in mental status. 2. Hypertension, stable. 3. Metabolic acidosis, stable. 4. Hypokalemia, stable. We will plan dialysis today. If we do not see any significant mental improvement will stop dialysis. Again, no family member was available. I have tried to contact the family members on multiple occa sions with no replies.
[2017-06-26] MEDS: levETIRAcetam In NaCl (Iso-Os) 1,000 MG in Premix Bag 1 BAG IVPB SCH ×4 (09:29→21:33)
[2017-06-26] MEDS: Citrucel 500 MG TAB PO SCH ×2 (09:30→21:30)
[2017-06-26] MEDS: Witch Hazel-Glycerin 1 EACH JAR TOP SCH ×3 (09:30→21:31)
[2017-06-26] MEDS: Polyethylene Glycol 3350 17 GM Packet PO SCH (09:30)
[2017-06-26] MEDS: Senokot S 8.6-50 MG TAB PO SCH ×2 (09:30→21:30)
[2017-06-26] MEDS: Silver Sulfadiazine 1% Cream 50 GM TUBE TP SCH (09:30)
--- NOTE | 2017-06-26 10:02 | PRG ---
DATE OF SERVICE: 06/26/2017 SERVICE: Pulmonary Medicine. INTERVAL HISTORY: The patient had dialysis yesterday. We cleared a little bit of toxins out of his bloodstream, but he continues to have persistent encephalopathy. He cannot provide any additional elements of the history. Otherwise, there were no overnight events. We did not notice any seizure activity. PHYSICAL EXAMINATION: VITAL SIGNS: Afebrile, pulse 86, blood pressure 126/76, respirations 24, saturation 98% on 27% FIO2 and PEEP of 5. GENERAL: The patient is intubated. He is on no sedation, but remains encephalopathic and does not do anything, too terribly purposeful. HEENT: Normocephalic, atraumatic. Sclerae are white, conjunctivae pink. Oral and mucosa is moist without lesions. LUNGS: Decent air entry. There is no significant prolongation of the expiratory phase. Rhonchi are present. There is no wheezing or crackles appreciated. HEART: Normal rate, regular. ABDOMEN: Soft, nontender, nondistended. Bowel sounds are positive. MUSCULOSKELETAL: No cyanosis or clubbing. No pitting in the bilateral lower extremities. NEUROLOGIC: He withdraws to noxious stimuli in the right upper extremity, bilateral lower extremities. He also has a grimace with this noxious stimuli. He is not following any commands. He is overbreathing the ventilator and does demonstrate cough, gag and pupillary responses. He is not moving the left upper extremity to noxious stimuli or otherwise. ASSESSMENT: 1. Acute hypoxic respiratory failure, resolved. 2. Healthcare-associated pneumonia secondary to methicillin- sensitive Staphylococcus aureus. 3. Clostridium difficile infection. 4. Subdural hematoma. 5. Seizure. 6. Acute kidney injury, intermittently requiring hemodialysis. 7. Chronic systolic heart failure. 8. Metabolic encephalopathy versus anoxic brain injury. PLAN: We will continue supportive care for the time being. He will undergo dialysis on one more occasion. MRI of the brain and repeat EEG will be considered. We will continue him on antibiotics directed at lung infection and C. diff. We are currently fast approaching the time that we will need to consider PEG tube and tracheostomy placement if the family is so inclined. We are working on establishing the decision maker as the son who is the next of kin is not interested in being that person. Critical care time: 30 minutes. LUCAS
[2017-06-26] MEDS: cefTRIAXone\\ROCEPHIN 2 GM in Sodium Chloride 0.9% 100 ML IVPB SCH (11:22)
--- NOTE | 2017-06-26 12:31 | PDOC.PN ---
- Subjective Encounter Start Date: 06/26/17 Encounter Start Time: 09:25 -: non-verbal PT seen and examined earlier on rounds. No new events. HD last evening without problems, not able to get off as much BUN as hoped, repeat HD today for longer. per Nephro, this is the last HD. if not helpful, no other acute indication to continue HD MS today unchanged. off sedation, respondes only to painful stimuli to RUE, BLE and has a gag reflex. No acute events overnight. - Objective Resuscitation Status: Resuscitation Status FULL:Full Resuscitation MAR Reviewed: Yes Vital Signs & Weight: Vital Signs (12 hours) Temp Pulse Resp BP 06/26/17 11:10 83 122/68 06/26/17 11:00 98.5 F 06/26/17 08:00 97.8 F 86 27 H 06/26/17 07:42 88 128/76 06/26/17 06:00 18 06/26/17 04:00 98.1 F 19 06/26/17 03:41 79 06/26/17 02:00 17 Weight Admit Weight 260 lb 4.8 oz Weight 248 lb 0.321 oz Most Recent Monitor Data Heart Rate from ECG 80 NIBP 97/51 NIBP BP-Mean 79 Respiration from ECG 32 SpO2 94 I&O: 06/25/17 06/26/17 06/27/17 06:59 06:59 06:59 Intake Total 2225 2518 60 Output Total 1373 619 85 Balance 852 1899 -25 Result Diagrams: 06/26/17 04:40 06/26/17 04:40 Additional Labs: Accuchecks 06/26/17 06/26/17 06/25/17 04:41 01:01 21:30 POC Glucose 128 H 132 H 112 H 06/25/17 06/25/17 06/25/17 16:36 11:52 08:41 POC Glucose 104 123 H 104 06/25/17 04:19 POC Glucose 151 H Radiology Reviewed by me: Yes Phys Exam - Physical Examination Constitutional: NAD HEENT: PERRLA, moist MMs, sclera anicteric, oral pharynx no lesions Neck: no nodes, no JVD, supple, full ROM Respiratory: no wheezing, no rales, no rhonchi, clear to auscultation bilateral Cardiovascular: RRR, no significant murmur Gastrointestinal: soft, no distention, positive bowel sounds Musculoskeletal: pulses present Lymphatic: no nodes Skin: no rash, normal turgor, cap refill <2 seconds Dx/Plan (1) CKD (chronic kidney disease) stage 3, GFR 30-59 ml/min Code(s): N18.3 - CHRONIC KIDNEY DISEASE, STAGE 3 (MODERATE) Status: Acute Comment: CKD stable, Cr down to 2.48. Renal following, not a good HD candidate. Renal agreed to acutely dialyze to see if any removable toxins can be removed to improve mkental status. getting second one now, and this will be the last. no appreciable differecne at all. Will attempt to contact the family again today to discuss (2) HTN (hypertension) Code(s): I10 - ESSENTIAL (PRIMARY) HYPERTENSION Status: Acute Qualifiers: Hypertension type: essential hypertension Qualified Code(s): I10 - Essential (primary) hypertension Comment: BP satisfactory.. (3) Cardiomyopathy Code(s): I42.9 - CARDIOMYOPATHY, UNSPECIFIED Status: Chronic Qualifiers: Cardiomyopathy type: unspecified Qualified Code(s): I42.9 - Cardiomyopathy , unspecified Comment: Has pacemaker defibrillator in place. (4) Acute intracranial hemorrhage Code(s): I62.9 - NONTRAUMATIC INTRACRANIAL HEMORRHAGE, UNSPECIFIED Status: Acute (5) Seizure disorder as sequela of cerebrovascular accident Code(s): I69.398 - OTHER SEQUELAE OF CEREBRAL INFARCTION; G40.909 - EPILEPSY, UNSP, NOT INTRACTABLE, WITHOUT STATUS EPILEPTICUS Status: Acute (6) Acute hypoxemic respiratory failure Code(s): J96.01 - ACUTE RESPIRATORY FAILURE WITH HYPOXIA Status: Acute Comment: on SIMV, breathing on own, but no higher function off sedation. PC consult to contact family and assist with decision making (7) Acute on chronic systolic (congestive) heart failure Code(s): I50.23 - ACUTE ON CHRONIC SYSTOLIC (CONGESTIVE) HEART FAILURE Status : Acute Comment: better lung sounds today (8) NAHUN (acute kidney injury) Code(s): N17.9 - ACUTE KIDNEY FAILURE, UNSPECIFIED Status: Acute Comment: Cr down to 2.12 after 1st HD. no indicative of renal function improvement (9) Paroxysmal A-fib Code(s): I48.0 - PAROXYSMAL ATRIAL FIBRILLATION Status: Chronic (10) Clostridium difficile colitis Status: Acute Comment: On flagyl, po Vanc. On IV rocephin for MSSA poneumonia. stools still watery. CCM for now, can stop coverage for MSSA soon (11) VAP (ventilator-associated pneumonia) Code(s): J95.851 - VENTILATOR ASSOCIATED PNEUMONIA Status: Acute Comment: new, not present on admit, cx with MSSa. Covered. (12) Severe sepsis with acute organ dysfunction Code(s): A41.9 - SEPSIS, UNSPECIFIED ORGANISM; R65.20 - SEVERE SEPSIS WITHOUT SEPTIC SHOCK Status: Acute Comment: not present on admit. Insetting of increasing WBC, tachycardia, MSSA bacterial VAP and NAHUN on CKD, pt meets severe sepsis criteria - Plan * .
[2017-06-26] MEDS: Famotidine/PF 20 mg/2ml Vial SLOW IVP SCH (21:32)
[2017-06-27] MEDS: Lorazepam 2 MG/ML VIAL SLOW IVP PRN (02:03)
[2017-06-27] MEDS: Vancomycin HCl 25 MG/ML Oral PO SCH ×4 (05:02→20:30)
[2017-06-27 05:53] LABS: Band 3 % (5-11); Hemoglobin 7.8 g/dL (14.0-18.0); Lymphocytes 3 % (21-51); MDiff Complete? YES; Mean Corpuscular HGB CONC 31.5 g/dL (32.0-36.0); Mean Corpuscular Hemoglobin 27.2 pg (27.0-31.0); Mean Corpuscular Volume 86.2 fl (80.0-94.0); Mean Platelet Volume 8.4 fL (7.4-10.4); Metamyelocyte 1 % (0-0); Neutrophil 93 % (42-75); Nucleated RBC 2 % (0); PLT Morphology Comment Appears Adequate; Platelet Count 239 thou/uL (130-400); RBC Distribution Width 18.1 % (11.5-14.5); Red Blood Cell (RBC) Count 2.88 mill/uL (4.70-6.10); White Blood Cell (WBC) Count 23.5 thou/uL (4.8-10.8)
[2017-06-27 06:15] LABS: Anion Gap 13 mmol/L (10-20); BUN (Urea Nitrogen) 70 mg/dL (8.4-25.7); Calc. Creatinine Clearance 50 mL/min (70-130); Calcium 8.7 mg/dL (7.8-10.44); Carbon Dioxide 24 mmol/L (23-31); Chloride 104 mmol/L (98-107); Estimated GFR-MDRD 37; Glucose 193 mg/dL (83-110); Potassium 4.4 mmol/L (3.5-5.1); Sodium 137 mmol/L (136-145)
[2017-06-27] MEDS: Senokot S 8.6-50 MG TAB PO SCH (09:07)
[2017-06-27] MEDS: levETIRAcetam In NaCl (Iso-Os) 1,000 MG in Premix Bag 1 BAG IVPB SCH ×4 (09:07→20:29)
[2017-06-27] MEDS: Citrucel 500 MG TAB PO SCH ×3 (09:07→21:05)
[2017-06-27] MEDS: Polyethylene Glycol 3350 17 GM Packet PO SCH (09:07)
[2017-06-27] MEDS: Silver Sulfadiazine 1% Cream 50 GM TUBE TP SCH (09:08)
[2017-06-27] MEDS: Witch Hazel-Glycerin 1 EACH JAR TOP SCH ×3 (09:08→20:30)
--- NOTE | 2017-06-27 11:08 | PRG ---
DATE OF SERVICE: 06/27/2017 SERVICE: Pulmonary Medicine. INTERVAL HISTORY: The patient is doing okay from a respiratory standpoint. He is breathing comforta sammi on the mechanical ventilation. He continues to be poorly responsive to his surroundings. That gina norman said, he does not require as much noxious stimuli in order to have the same response. Otherwise , there has been no interval change to his condition. He cannot provide any additional elements of t he history. Nursing reports no overnight events. He continues to have significant bowel movements. PHYSICAL EXAMINATION: VITAL SIGNS: Afebrile, pulse 81, blood pressure 140/91, respirations 22, saturation 100% on room air . GENERAL: The patient is intubated. He is encephalopathic. HEENT: Normocephalic, atraumatic. Sclerae are white, conjunctivae pink. Oral and nasal mucosa is m oist without lesions. LUNGS: Decent air entry. There is no prolonged expiratory phase or wheezing present. HEART: Normal rate, regular. ABDOMEN: Soft, nontender, nondistended. Bowel sounds are positive. MUSCULOSKELETAL: No cyanosis or clubbing. There is no pitting in the bilateral lower extremities. Pulses are equal throughout. LABORATORY DATA: WBC 23.5, hemoglobin 7.8, platelets 293,000. Creatinine 2.12 with BUN is down tren ding to 70. Basic metabolic profile is otherwise unremarkable. Respiratory culture is growing MSSA. C. diff is positive for antigen and toxin. Otherwise, all results are negative. ASSESSMENT: 1. Acute hypoxic respiratory failure, resolved. 2. Ventilator associated pneumonia secondary to methicillin-susceptible Staphylococcus aureus. 3. Clostridium difficile infection. 4. Subdural hematoma. 5. Seizure. 6. Acute kidney injury, requiring hemodialysis presently. 7. Chronic systolic heart failure. 8. Metabolic encephalopathy versus anoxic brain injury. PLAN: We will continue our supportive efforts while we approach the family for discussions regarding end of life care. At this point, I do think the patient's baseline debility would prevent him from ever returning to his previously state of health. Furthermore, additional support moving forward is likely going to require tracheostomy with PEG tube placement which I never wanted to do to the patien t if he would not want this for himself. We were looking to the patient's son to help us answer this , but he is deferring to the patient's brothers who were trying to get into contact with. Pulmonary Critical Care we will continue to follow along. CRITICAL CARE TIME: 30 minutes.
[2017-06-27] MEDS: cefTRIAXone\\ROCEPHIN 2 GM in Sodium Chloride 0.9% 100 ML IVPB SCH (11:40)
--- NOTE | 2017-06-27 14:50 | PRG ---
DATE OF SERVICE: 06/27/2017 SUBJECTIVE: This 72-year-old gentleman being seen for acute kidney injury. The patient has become o liguric. The patient remains somnolent. PHYSICAL EXAMINATION: GENERAL: Patient is resting well. The patient is somnolent. VITAL SIGNS: Afebrile, pulse 99, breathing at 16, blood pressure 133/94. GENERAL APPEARANCE AND MENTAL STATUS: Fair. HEAD/NECK: Normocephalic. Atraumatic. EYES: EOMI. No deformity. EARS: Clear. No ulcers. NOSE: Intact. No lesions. MOUTH: Clear No discharge. THROAT: Clear. No exudate. LUNGS: Clear. No crackles. CARDIAC: S1, S2. No rub. ABDOMEN: Benign. BS+. GENITALIA/RECTUM: Vazquez absent. BACK/EXTREMITIES: Edema 0+ Ulcer- NEUROLOGICAL: Alert and motor intact. SKIN: Rash- Bruise- LYMPHATICS: Edema- Ulcer- LABORATORY DATA: Hemoglobin 7.8, potassium 4.4, BUN 70. ASSESSMENT AND RECOMMENDATIONS: 1. Acute kidney injury with chronic kidney disease and dialysis dependent. The uremia is getting be tter. We will plan dialysis again tomorrow. 2. Hypertension, stable. 3. Anemia, we will consider blood transfusion tomorrow if the hemoglobin is less than 7.5 and no fam avinash member was available to discuss the situation.
--- NOTE | 2017-06-27 15:17 | PDOC.PN ---
- Subjective Encounter Start Date: 06/27/17 Encounter Start Time: 08:55 -: non-verbal PT stiired to stimuli, did not open eye,s no purposeful movement,s just a grimace. not on sedation, no acute events overnight. No significant changes - Objective Resuscitation Status: Resuscitation Status FULL:Full Resuscitation MAR Reviewed: Yes Vital Signs & Weight: Vital Signs (12 hours) Temp Pulse Resp BP 06/27/17 14:27 92 133/94 H 06/27/17 12:00 98 F 06/27/17 10:36 90 127/77 06/27/17 10:00 17 06/27/17 08:00 86 147/92 H 06/27/17 07:43 97.1 F L 105 H 38 H 06/27/17 07:00 97.1 F L 06/27/17 06:00 20 06/27/17 04:00 99.0 F 21 H Weight Admit Weight 260 lb 4.8 oz Weight 247 lb 9.266 oz Most Recent Monitor Data Heart Rate from ECG 99 NIBP 133/94 NIBP BP-Mean 103 Respiration from ECG 38 SpO2 98 I&O: 06/26/17 06/27/17 06/28/17 06:59 06:59 06:59 Intake Total 2518 1739 120 Output Total 619 123 15 Balance 1899 1616 105 Result Diagrams: 06/27/17 05:00 06/27/17 05:00 Additional Labs: Accuchecks 06/26/17 06/26/17 06/26/17 15:23 11:21 09:28 POC Glucose 140 H 119 H 127 H Radiology Reviewed by me: Yes EKG Reviewed by me: Yes (tele) Phys Exam - Physical Examination Constitutional: NAD HEENT: PERRLA, moist MMs, sclera anicteric, oral pharynx no lesions orall ETT, no oral lesions could be seen Neck: no nodes, no JVD, supple Respiratory: no wheezing, no rales, clear to auscultation bilateral Cardiovascular: RRR, no rub Gastrointestinal: soft, no distention, positive bowel sounds grimaces to palpation Musculoskeletal: edema present unchanged. W/D to pain with RUE, BLE, no movement of LUE Lymphatic: no nodes Skin: no rash, normal turgor, cap refill <2 seconds Dx/Plan (1) CKD (chronic kidney disease) stage 3, GFR 30-59 ml/min Code(s): N18.3 - CHRONIC KIDNEY DISEASE, STAGE 3 (MODERATE) Status: Acute Comment: CKD stable, Cr down to 2.48. Renal following, not a good HD candidate. Renal agreed to acutely dialyze to see if any removable toxins can be removed to improve mkental status. getting second one now, and this will be the last. no appreciable difference at all. Will attempt to contact the family again today to discuss (2) HTN (hypertension) Code(s): I10 - ESSENTIAL (PRIMARY) HYPERTENSION Status: Acute Qualifiers: Hypertension type: essential hypertension Qualified Code(s): I10 - Essential (primary) hypertension Comment: BP satisfactory.. (3) Cardiomyopathy Code(s): I42.9 - CARDIOMYOPATHY, UNSPECIFIED Status: Chronic Qualifiers: Cardiomyopathy type: unspecified Qualified Code(s): I42.9 - Cardiomyopathy , unspecified Comment: Has pacemaker defibrillator in place. (4) Acute intracranial hemorrhage Code(s): I62.9 - NONTRAUMATIC INTRACRANIAL HEMORRHAGE, UNSPECIFIED Status: Acute (5) Seizure disorder as sequela of cerebrovascular accident Code(s): I69.398 - OTHER SEQUELAE OF CEREBRAL INFARCTION; G40.909 - EPILEPSY, UNSP, NOT INTRACTABLE, WITHOUT STATUS EPILEPTICUS Status: Acute (6) Acute hypoxemic respiratory failure Code(s): J96.01 - ACUTE RESPIRATORY FAILURE WITH HYPOXIA Status: Acute Comment: on SIMV, breathing on own, but no higher function off sedation. PC consult to contact family and assist with decision making (7) Acute on chronic systolic (congestive) heart failure Code(s): I50.23 - ACUTE ON CHRONIC SYSTOLIC (CONGESTIVE) HEART FAILURE Status : Acute Comment: better lung sounds today (8) NAHUN (acute kidney injury) Code(s): N17.9 - ACUTE KIDNEY FAILURE, UNSPECIFIED Status: Acute Comment: Cr down to 2.12 after 1st HD. no indicative of renal function improvement (9) Paroxysmal A-fib Code(s): I48.0 - PAROXYSMAL ATRIAL FIBRILLATION Status: Chronic (10) Clostridium difficile colitis Status: Acute Comment: On flagyl, po Vanc. On IV rocephin for MSSA poneumonia. stools still watery. CCM for now, can stop coverage for MSSA soon (11) VAP (ventilator-associated pneumonia) Code(s): J95.851 - VENTILATOR ASSOCIATED PNEUMONIA Status: Acute Comment: new, not present on admit, cx with MSSa. Covered. (12) Severe sepsis with acute organ dysfunction Code(s): A41.9 - SEPSIS, UNSPECIFIED ORGANISM; R65.20 - SEVERE SEPSIS WITHOUT SEPTIC SHOCK Status: Acute Comment: not present on admit. Insetting of increasing WBC, tachycardia, MSSA bacterial VAP and NAHUN on CKD, pt meets severe sepsis criteria - Plan cont current plan of care, continue antibiotics, PT/OT, social group worker, respiratory therapy * .
[2017-06-27] MEDS: Famotidine/PF 20 mg/2ml Vial SLOW IVP SCH (20:28)
[2017-06-28] MEDS: Vancomycin HCl 25 MG/ML Oral PO SCH ×4 (03:43→20:12)
[2017-06-28 04:41] LABS: Anion Gap 15 mmol/L (10-20); BUN (Urea Nitrogen) 99 mg/dL (8.4-25.7); Calc. Creatinine Clearance 36 mL/min (70-130); Carbon Dioxide 23 mmol/L (23-31); Chloride 103 mmol/L (98-107); Estimated GFR-MDRD 26; Glucose 231 mg/dL (83-110); Potassium 4.2 mmol/L (3.5-5.1); Sodium 137 mmol/L (136-145)
[2017-06-28 04:55] LABS: Band 2 % (5-11); Lymphocytes 4 % (21-51); MDiff Complete? YES; Mean Corpuscular HGB CONC 31.2 g/dL (32.0-36.0); Mean Corpuscular Hemoglobin 26.9 pg (27.0-31.0); Mean Corpuscular Volume 86.3 fl (80.0-94.0); Mean Platelet Volume 8.3 fL (7.4-10.4); Monocytes 4 % (0-10); Neutrophil 90 % (42-75); Nucleated RBC 3 % (0); Platelet Count 274 thou/uL (130-400); RBC Distribution Width 18.3 % (11.5-14.5); Red Blood Cell (RBC) Count 2.98 mill/uL (4.70-6.10); White Blood Cell (WBC) Count 28.2 thou/uL (4.8-10.8)
[2017-06-28] MEDS: levETIRAcetam In NaCl (Iso-Os) 1,000 MG in Premix Bag 1 BAG IVPB SCH ×4 (08:50→20:11)
[2017-06-28] MEDS: Citrucel 500 MG TAB PO SCH ×2 (08:51→20:12)
[2017-06-28] MEDS: Silver Sulfadiazine 1% Cream 50 GM TUBE TP SCH (08:51)
[2017-06-28] MEDS: Witch Hazel-Glycerin 1 EACH JAR TOP SCH ×3 (08:51→20:12)
--- NOTE | 2017-06-28 11:07 | PRG ---
DATE OF SERVICE: 06/28/2017 SERVICE: Pulmonary Medicine. INTERVAL HISTORY: The patient is doing fine from a respiratory standpoint. Cardiovascular, he is doing quite as well. His mentation has yet to improve. He seems to be a little bit more brisk today in response. That being said, he is not doing anything purpose. He cannot provide any additional elements of the history. He is currently tolerating dialysis okay. PHYSICAL EXAMINATION: VITAL SIGNS: Afebrile, pulse 103, blood pressure 147/91, respirations 28, saturation 96% on 27% FIO2 and PEEP of 5. GENERAL: Patient is awake, alert, no apparent distress. LUNGS: Decent air entry. There is no prolonged expiratory phase, wheezing, rhonchi or crackles. HEART: Normal rate, regular. ABDOMEN: Soft, nontender, nondistended. Bowel sounds are positive. MUSCULOSKELETAL: No cyanosis or clubbing. There is no pitting in the bilateral lower extremities. NEUROLOGIC: He withdraws to noxious stimuli in the bilateral lower extremities and right upper extremity. He does not really withdraw from noxious stimuli in the left upper extremity. Pupils are equal, round, and reactive. He is overbreathing the ventilator and demonstrates a good gag. He will swing his head from left to right. LABORATORY DATA: WBC 28.2, hemoglobin 8.0, platelets 274,000. Neutrophil count is 90% with decreasing band count of 2%. INR 1.3. Creatinine 2.89, BUN 99. Basic metabolic profile is otherwise unremarkable. ASSESSMENT: 1. Acute hypoxic respiratory failure, resolved. 2. Ventilator-associated pneumonia secondary to methicillin-sensitive staphylococcus aureus. 3. Clostridium difficile infection. 4. Severe sepsis. 5. Subdural hematoma. 6. Seizure. 7. Acute kidney injury, currently requiring intermittent hemodialysis. 8. Chronic systolic heart failure. 9. Metabolic encephalopathy versus anoxic brain injury. PLAN: We will continue supportive care for the time being. At this point, we are working on discussing our options moving forward with family members. The son does not want to take responsibility for making any decisions and is deferred to the brothers. Palliative care are helping us work through this difficult social situation. In the meantime, supportive measures will be continued. If he has any increasing signs of severe sepsis, santos culture and empiric antibiotics will be initiated. Ventilator support will be continued until the family can help us make a decision. Critical care time: 30 minutes. MTDD
--- NOTE | 2017-06-28 11:17 | PRG ---
DATE OF SERVICE: 06/28/2017 SUBJECTIVE: This is a 72-year-old gentleman being seen for acute kidney injury. The patient remains oliguric. PHYSICAL EXAMINATION: GENERAL: Patient is resting. VITAL SIGNS: Afebrile, pulse 70, breathing at 16, blood pressure was 130/70. GENERAL APPEARANCE AND MENTAL STATUS: Fair. HEAD/NECK: Normocephalic. Atraumatic. EYES: EOMI. No deformity. EARS: Clear. No ulcers. NOSE: Intact. No lesions. MOUTH: Clear. No discharge. THROAT: Clear. No exudate. LUNGS: Clear. No crackles. CARDIAC: S1, S2. No rub. ABDOMEN: Benign. BS+. GENITALIA/RECTUM: Vazquez absent. BACK/EXTREMITIES: Edema 0+ Ulcer- NEUROLOGICAL: The patient is still comatose. SKIN: Rash- Bruise- LYMPHATICS: Edema- Ulcer- LABORATORY DATA: Hemoglobin 8, BUN is 99, creatinine 2.8. ASSESSMENT AND RECOMMENDATIONS: 1. Acute kidney injury with oliguria. Plan hemodialysis. 2. Uremia. Plan dialysis. 3. Access, the patient's catheter is not working. I have consulted Surgery to put a tunneled dialys is catheter tomorrow.
--- NOTE | 2017-06-28 12:27 | PDOC.PN ---
- Subjective Encounter Start Date: 06/28/17 Encounter Start Time: 09:00 -: non-verbal orally intubated, off sedation for almost a week. Pt on dialysis this mornign, but venous limb not pulling well, Dr Dior called to replace. Pt seemed to respond to verbal stimuli today, trying to open eyes, but mad char offort to stay awake and then not to follow any other simple commands. No acute events overnight - Objective Resuscitation Status: Resuscitation Status FULL:Full Resuscitation MAR Reviewed: Yes Vital Signs & Weight: Vital Signs (12 hours) Temp Pulse Resp BP 06/28/17 10:40 91 152/86 H 06/28/17 08:00 23 H 06/28/17 07:26 97.1 F L 96 28 H 06/28/17 07:06 96 157/100 H 06/28/17 06:00 97.7 F 16 06/28/17 04:00 23 H 06/28/17 03:34 87 06/28/17 02:00 24 H Weight Admit Weight 260 lb 4.8 oz Weight 229 lb 15.074 oz Most Recent Monitor Data Heart Rate from ECG 93 NIBP 150/85 NIBP BP-Mean 103 Respiration from ECG 17 SpO2 97 I&O: 06/27/17 06/28/17 06/29/17 06:59 06:59 06:59 Intake Total 1739 1718 30 Output Total 123 254 0 Balance 1616 1464 30 Result Diagrams: 06/28/17 03:55 06/28/17 03:55 Additional Labs: Accuchecks 06/27/17 06/27/17 06/27/17 20:37 15:01 11:39 POC Glucose 218 H 218 H 223 H 06/27/17 06/27/17 06/27/17 09:02 04:55 01:28 POC Glucose 205 H 190 H 172 H 06/26/17 21:26 POC Glucose 185 H Radiology Reviewed by me: Yes EKG Reviewed by me: Yes Phys Exam - Physical Examination Constitutional: NAD HEENT: PERRLA, moist MMs, sclera anicteric, oral pharynx no lesions Neck: no nodes, no JVD, supple, full ROM Respiratory: no rales, no rhonchi, clear to auscultation bilateral Cardiovascular: RRR, no significant murmur, no rub Gastrointestinal: soft, non-tender, no distention, positive bowel sounds Musculoskeletal: pulses present, edema present no change in limb movements, RUE, BLE w/d to pain, nothing from LUE Lymphatic: no nodes Skin: no rash, normal turgor, cap refill <2 seconds Dx/Plan (1) CKD (chronic kidney disease) stage 3, GFR 30-59 ml/min Code(s): N18.3 - CHRONIC KIDNEY DISEASE, STAGE 3 (MODERATE) Status: Acute Comment: CKD stable, Cr down to 2.48. Renal following, not a good HD candidate. Renal agreed to acutely dialyze to see if any removable toxins can be removed to improve mental status. getting third one now, but not pulling blood well. and this will be the last. no appreciable difference at all. Will attempt to contact the family again today to discuss (2) HTN (hypertension) Code(s): I10 - ESSENTIAL (PRIMARY) HYPERTENSION Status: Acute Qualifiers: Hypertension type: essential hypertension Qualified Code(s): I10 - Essential (primary) hypertension Comment: BP satisfactory.. (3) Cardiomyopathy Code(s): I42.9 - CARDIOMYOPATHY, UNSPECIFIED Status: Chronic Qualifiers: Cardiomyopathy type: unspecified Qualified Code(s): I42.9 - Cardiomyopathy , unspecified Comment: Has pacemaker defibrillator in place. (4) Acute intracranial hemorrhage Code(s): I62.9 - NONTRAUMATIC INTRACRANIAL HEMORRHAGE, UNSPECIFIED Status: Acute (5) Seizure disorder as sequela of cerebrovascular accident Code(s): I69.398 - OTHER SEQUELAE OF CEREBRAL INFARCTION; G40.909 - EPILEPSY, UNSP, NOT INTRACTABLE, WITHOUT STATUS EPILEPTICUS Status: Acute (6) Acute hypoxemic respiratory failure Code(s): J96.01 - ACUTE RESPIRATORY FAILURE WITH HYPOXIA Status: Acute Comment: on SIMV, breathing on own, but no higher function off sedation. PC consult to contact family and assist with decision making (7) Acute on chronic systolic (congestive) heart failure Code(s): I50.23 - ACUTE ON CHRONIC SYSTOLIC (CONGESTIVE) HEART FAILURE Status : Acute Comment: better lung sounds today (8) NAHUN (acute kidney injury) Code(s): N17.9 - ACUTE KIDNEY FAILURE, UNSPECIFIED Status: Acute Comment: Cr down to 2.12 after 1st HD. no indicative of renal function improvement (9) Paroxysmal A-fib Code(s): I48.0 - PAROXYSMAL ATRIAL FIBRILLATION Status: Chronic (10) Clostridium difficile colitis Status: Acute Comment: On flagyl, po Vanc. On IV rocephin for MSSA poneumonia. stools still watery. CCM for now, can stop coverage for MSSA soon (11) VAP (ventilator-associated pneumonia) Code(s): J95.851 - VENTILATOR ASSOCIATED PNEUMONIA Status: Acute Comment: new, not present on admit, cx with MSSa. Covered. (12) Severe sepsis with acute organ dysfunction Code(s): A41.9 - SEPSIS, UNSPECIFIED ORGANISM; R65.20 - SEVERE SEPSIS WITHOUT SEPTIC SHOCK Status: Acute Comment: not present on admit. Insetting of increasing WBC, tachycardia, MSSA bacterial VAP and NAHUN on CKD, pt meets severe sepsis criteria - Plan cont current plan of care, continue antibiotics, respiratory therapy * . need to discuss PEG adn trach and HD with family. spoke with some Jenaro a few days ago, but unable to talk to brothers, whom Jenaro wanted to delegate decision making to.
[2017-06-28] MEDS: cefTRIAXone\\ROCEPHIN 2 GM in Sodium Chloride 0.9% 100 ML IVPB SCH (12:45)
[2017-06-28] MEDS ORDERED: Dextrose 5% in Water 1,000 ML IV PRN (20:57)
[2017-06-28] MEDS ORDERED: Dextrose 50% Abboject 50 ML SYRINGE IVP PRN (20:57)
[2017-06-28] MEDS: HumaLOG 300 UNITS/3 ML VIAL SC PRN (23:31)
[2017-06-29] MEDS: Vancomycin HCl 25 MG/ML Oral PO SCH ×4 (02:02→22:03)
[2017-06-29] MEDS: HumaLOG 300 UNITS/3 ML VIAL SC PRN ×2 (04:12→14:10)
[2017-06-29 05:47] LABS: Anion Gap 17 mmol/L (10-20); BUN (Urea Nitrogen) 80 mg/dL (8.4-25.7); Calc. Creatinine Clearance 39 mL/min (70-130); Calcium 8.5 mg/dL (7.8-10.44); Carbon Dioxide 24 mmol/L (23-31); Chloride 100 mmol/L (98-107); Estimated GFR-MDRD 29; Glucose 266 mg/dL (83-110); Potassium 4.2 mmol/L (3.5-5.1); Sodium 137 mmol/L (136-145)
[2017-06-29 05:54] LABS: Band 2 % (5-11); Hemoglobin 7.7 g/dL (14.0-18.0); Lymphocytes 3 % (21-51); MDiff Complete? YES; Mean Corpuscular HGB CONC 31.2 g/dL (32.0-36.0); Mean Corpuscular Hemoglobin 26.7 pg (27.0-31.0); Mean Corpuscular Volume 85.8 fl (80.0-94.0); Mean Platelet Volume 7.9 fL (7.4-10.4); Monocytes 4 % (0-10); Myelocyte 1 % (0-0); Neutrophil 90 % (42-75); Nucleated RBC 10 % (0); Platelet Count 308 thou/uL (130-400); Polychromasia SLIGHT = 2-3 cells (100X) (0-2/hpf); RBC Distribution Width 18.3 % (11.5-14.5); Red Blood Cell (RBC) Count 2.86 mill/uL (4.70-6.10); Target Cells SLIGHT = 2-5 cells (100X) (0-1/hpf); White Blood Cell (WBC) Count 21.9 thou/uL (4.8-10.8)
[2017-06-29] MEDS ORDERED: Heparin 10,000 UNITS/1 ML VIAL ONE ×2 (10:00→20:10)
[2017-06-29] MEDS: levETIRAcetam In NaCl (Iso-Os) 1,000 MG in Premix Bag 1 BAG IVPB SCH ×4 (10:02→21:56)
[2017-06-29] MEDS: Silver Sulfadiazine 1% Cream 50 GM TUBE TP SCH (10:03)
[2017-06-29] MEDS: Witch Hazel-Glycerin 1 EACH JAR TOP SCH ×2 (10:05→16:24)
--- NOTE | 2017-06-29 10:33 | PRG ---
DATE OF SERVICE: 06/29/2017 SUBJECTIVE: This is a 72-year-old gentleman being seen for acute renal failure. OBJECTIVE: GENERAL: Patient is resting. VITAL SIGNS: Afebrile, pulse 95, breathing at 16, blood pressure 164/90. HEAD/NECK: Normocephalic. Atraumatic. EYES: EOMI. No deformity. EARS: Clear. No ulcers. NOSE: Intact. No lesions. MOUTH: Clear. No discharge. THROAT: Clear. No exudate. LUNGS: Clear. No crackles. CARDIAC: S1, S2. No rub. ABDOMEN: Benign. BS+. GENITALIA/RECTUM: Vazquez absent. BACK/EXTREMITIES: Edema 0+. Ulcer-. NEUROLOGICAL: The patient is resting. SKIN: Rash-. Bruise-. LYMPHATICS: Edema-. Ulcer-. LABORATORY DATA: Showed a creatinine of 2.6. ASSESSMENT AND RECOMMENDATIONS: Stage 6 chronic kidney disease. We will plan hemodialysis. The pat ient remains oliguric and uremic. We will plan dialysis. Hypertension, stable. Failed access, will get a new-tunneled catheter. Overall, prognosis is extremely poor.
--- NOTE | 2017-06-29 13:36 | PDOC.PN ---
- Subjective Encounter Start Date: 06/29/17 Encounter Start Time: 10:45 -: non-verbal intubated, off sedation, moving BLE and RUE a little, no coherent movements, not following commands, not opening eyes to stimuli. Called Reza (middle brother) and Asad (youngest brother). Shaggy is the older brother, Pt is the oldest. Left message for Reza, talked with Asad. explained the i had spoken with Hermila and he wanted to relinquish/Designate medical decision to the brothers, specifically naming Asad and Reza, but wouldnt specify. Asad told me that he and Shaggy dont speak, but shaggy is of the opinion to just keep him comfortable, and Asad is leaning that way, but never had that conversation with the patient, and that he would agree with what he, reza, Shaggy, Hermila and Hremila's brother decided. Reza didnt call back last evening, but hermila did, asked for an update which iprovided. i explained that we are the point to either proceed with custodial measures such as trach and PEG, or to go to comfort care. He said he would talk with his brother and uncles and would call me back 06/29. i have not heard form them. Pt withut acute event overnight. HD yesterday slow, pt to go for tunneled catheter this afternoon. i told nurses to proceed with long weekend coming up and that if we didnt need it, it could be removed later. - Objective Resuscitation Status: Resuscitation Status FULL:Full Resuscitation MAR Reviewed: Yes Vital Signs & Weight: Vital Signs (12 hours) Temp Pulse Resp BP Pulse Ox 06/29/17 12:00 98.7 F 14 06/29/17 11:24 90 140/83 06/29/17 10:00 10 L 06/29/17 08:00 98.5 F 87 10 L 100 06/29/17 07:00 98.5 F 06/29/17 06:59 91 164/90 H 06/29/17 06:00 16 06/29/17 04:00 98.9 F 23 H 06/29/17 03:14 101 H 06/29/17 02:00 17 Weight Admit Weight 260 lb 4.8 oz Weight 249 lb 1.957 oz Most Recent Monitor Data Heart Rate from ECG 94 NIBP 141/82 NIBP BP-Mean 91 Respiration from ECG 10 SpO2 100 I&O: 06/28/17 06/29/17 06/30/17 06:59 06:59 06:59 Intake Total 1718 1886 Output Total 254 20 0 Balance 1464 1866 0 Result Diagrams: 06/29/17 05:05 06/29/17 05:05 Additional Labs: Accuchecks 06/29/17 06/28/17 06/28/17 04:12 23:32 20:10 POC Glucose 266 H 279 H 257 H 06/28/17 06/28/17 06/28/17 16:00 12:30 08:49 POC Glucose 248 H 192 H 247 H 06/28/17 03:52 POC Glucose 219 H Radiology Reviewed by me: Yes EKG Reviewed by me: Yes Phys Exam - Physical Examination Constitutional: NAD HEENT: PERRLA, moist MMs, sclera anicteric, oral pharynx no lesions Neck: no nodes, no JVD, supple Respiratory: no wheezing, no rales, no rhonchi, clear to auscultation bilateral Cardiovascular: RRR, no significant murmur Gastrointestinal: soft, non-tender, no distention, positive bowel sounds Musculoskeletal: pulses present, edema present no LUE movment Lymphatic: no nodes Skin: no rash, normal turgor, cap refill <2 seconds Dx/Plan (1) CKD (chronic kidney disease) stage 3, GFR 30-59 ml/min Code(s): N18.3 - CHRONIC KIDNEY DISEASE, STAGE 3 (MODERATE) Status: Acute Comment: CKD stable, Cr down to 2.48. Renal following, not a good HD candidate. Renal agreed to acutely dialyze to see if any removable toxins can be removed to improve mental status. got third on 06/28, but not pulling blood well. Discussed with Dr Johnson, plans to continue TIW as pt is now anuric, mainly for fluid balance (2) HTN (hypertension) Code(s): I10 - ESSENTIAL (PRIMARY) HYPERTENSION Status: Acute Qualifiers: Hypertension type: essential hypertension Qualified Code(s): I10 - Essential (primary) hypertension Comment: BP satisfactory.. (3) Cardiomyopathy Code(s): I42.9 - CARDIOMYOPATHY, UNSPECIFIED Status: Chronic Qualifiers: Cardiomyopathy type: unspecified Qualified Code(s): I42.9 - Cardiomyopathy , unspecified Comment: Has pacemaker defibrillator in place. (4) Acute intracranial hemorrhage Code(s): I62.9 - NONTRAUMATIC INTRACRANIAL HEMORRHAGE, UNSPECIFIED Status: Acute Comment: resultant brain injury apparent (5) Seizure disorder as sequela of cerebrovascular accident Code(s): I69.398 - OTHER SEQUELAE OF CEREBRAL INFARCTION; G40.909 - EPILEPSY, UNSP, NOT INTRACTABLE, WITHOUT STATUS EPILEPTICUS Status: Acute (6) Acute hypoxemic respiratory failure Code(s): J96.01 - ACUTE RESPIRATORY FAILURE WITH HYPOXIA Status: Acute Comment: on SIMV, breathing on own, but no higher function off sedation. PC consult to contact family and assist with decision making (7) Acute on chronic systolic (congestive) heart failure Code(s): I50.23 - ACUTE ON CHRONIC SYSTOLIC (CONGESTIVE) HEART FAILURE Status : Acute Comment: lung sounds stable (8) NAHUN (acute kidney injury) Code(s): N17.9 - ACUTE KIDNEY FAILURE, UNSPECIFIED Status: Acute Comment: Cr down to 2.12 after 1st HD. no indicative of renal function improvement (9) Paroxysmal A-fib Code(s): I48.0 - PAROXYSMAL ATRIAL FIBRILLATION Status: Chronic (10) Clostridium difficile colitis Status: Acute Comment: On flagyl, po Vanc. On IV rocephin for MSSA poneumonia. stools still watery. CCM for now, can stop coverage for MSSA soon (11) VAP (ventilator-associated pneumonia) Code(s): J95.851 - VENTILATOR ASSOCIATED PNEUMONIA Status: Acute Comment: new, not present on admit, cx with MSSa. Covered. (12) Severe sepsis with acute organ dysfunction Code(s): A41.9 - SEPSIS, UNSPECIFIED ORGANISM; R65.20 - SEVERE SEPSIS WITHOUT SEPTIC SHOCK Status: Acute Comment: not present on admit. Insetting of increasing WBC, tachycardia, MSSA bacterial VAP and NAHUN on CKD, pt meets severe sepsis criteria - Plan cont current plan of care, continue antibiotics * . will discuss with pulm, day 12 of abx since 06/18 for MSSA coverage, now about 12 days in.
[2017-06-29] MEDS: cefTRIAXone\\ROCEPHIN 2 GM in Sodium Chloride 0.9% 100 ML IVPB SCH (14:03)
[2017-06-29] MEDS ORDERED: Lidocaine 2% PF 5 ML VIAL ONE (18:06)
[2017-06-29] MEDS ORDERED: Bupivacaine/Epinephrine 0.25% 30 ML VIAL ONE (18:06)
[2017-06-29] MEDS ORDERED: Sodium Chloride 0.9% 10 ML ONE (18:06)
[2017-06-29] MEDS ORDERED: Heparin 5,000 UNITS/ML VIAL ONE (18:06)
[2017-06-29] MEDS ORDERED: SUGAMMADEX SODIUM 500 MG/5 ML VIAL ONE (18:37)
[2017-06-29] MEDS ORDERED: Vecuronium 10 MG VIAL ONE (19:27)
[2017-06-29] MEDS ORDERED: Lorazepam 2 MG/ML VIAL ONE (19:33)
[2017-06-29] MEDS ORDERED: Fentanyl 100 MCG/2 ML VIAL ONE (20:21)
[2017-06-29] MEDS: Citrucel 500 MG TAB PO SCH (22:02)
[2017-06-29] MEDS: Pantoprazole 40 MG GRANULES PACKET PER TUBE SCH (22:06)
--- NOTE | 2017-06-29 22:37 | RAD ---
CHEST ONE VIEW: 06/29/17 HISTORY: 72-year-old male with history of congestive heart failure. Right venous access catheter has been plac ed. NG tube and endotracheal tubes remain in place. There is cardiomegaly with bilateral vascular con gestion as well as interstitial and alveolar edema, particularly in the perihilar regions and lower l qiana zones, somewhat worse on the right side. No right sided pneumothorax or pleural effusion. IMPRESSION: Right dual lumen venous access catheter placement without pneumothorax or pleural effusion. Cardiomeg gem with bilateral alveolar and interstitial parenchymal changes most likely edema. NG tube and endot agustin tubes are stable. POS: JASPAL
--- NOTE | 2017-06-30 01:51 | PRG ---
DATE OF SERVICE: 06/29/2017 SUBJECTIVE: Mr. Chandler remains mechanically ventilated. OBJECTIVE: VITAL SIGNS: He is afebrile, respiratory rate is 12, blood pressure 139/81, intake and output is pos itive 1866. LUNGS: Clear and distant anteriorly. HEART: Regular rhythm. ABDOMEN: Soft. EXTREMITIES: Unchanged. LABORATORY DATA: White count 21.9, hemoglobin 7.7 and platelets 308. Sodium 137, potassium 4.2, chloride 100, bicarbonate 24, BUN 8, creatinine 2.67 and glucose 266. IMAGING DATA: Chest radiograph had been done several days ago. I will order radiograph in the [facility]. IMPRESSION: 1. Respiratory failure. 2. Chronic stasis ulcers of lower extremities. 3. Ventilator-associated pneumonia with methicillin-resistant Staphylococcus aureus. 4. Clostridium difficile infection. 5. Subdural hematoma. 6. Seizures. 7. Acute on chronic kidney disease. 8. Systolic heart failure. 9. Metabolic encephalopathy versus anoxic injury. PLAN: Continue supportive care. It appears reviewing notes that no one really wants to make decisio ns regarding withdrawal of care. He is medically stable, but critically ill and it is unlikely he wi ll survive to becoming functional again in my opinion. Dr. Donnelly left a lengthy documentation about efforts to have conversations with family. I would agree that a trach and a PEG are the next step if family will not make decisions. Obviously, Mika weekend, this is not a priority since the hospital tends to be relatively short staffed, b ut the first part of next week, this decision will need to be made if they have not decided to opt fo r comfort care and withdrawal of support. CRITICAL CARE TIME: 30 minutes.
--- NOTE | 2017-06-30 01:52 | OP ---
DATE OF PROCEDURE: 06/29/2017 PREOPERATIVE DIAGNOSES: Comatose subdural hematomas, multiple; end-stage renal disease, poorly funct ioning temporary dialysis catheter right groin, poor IV access, (status post bilateral cephalic vein IVs placed midline immediately removed on my consultation). POSTOPERATIVE DIAGNOSES: Comatose subdural hematomas, multiple; end-stage renal disease, poorly func tioning temporary dialysis catheter right groin, poor IV access, (status post bilateral cephalic vein IVs placed midline immediately removed on my consultation). PROCEDURES: Fluoroscopy and ultrasound were used to place right internal jugular vein, cuffed tunnel hemodialysis catheter, angiodynamics precurved. Left internal jugular vein triple lumen catheter. SURGEON: Dr. Daniel Dior. ANESTHESIA: Sedation on the ventilator. PROCEDURE IN DETAIL: The patient was taken to the operating room where under sedation on the ventila tor, his neck and chest were prepared with ChloraPrep, draped in routine fashion. Local anesthetic i nfiltrated into skin and subcutaneous tissue about the operative site. Ultrasound guidance was used to cannulate the right and left internal jugular veins and J-wire was removed. Trocar catheter was r emoved. Skin was incised and enlarged sharply. Seldinger technique was used on the left to place th e triple lumen catheter, secured with 3-0 nylon suture and J-wire removed. Each port aspirated blood and flushed with saline solution. Biopatch sterile dressing applied. Tunneling device was used to tunnel precurved angiodynamics, cuffed tunneled dialysis catheter, actua lly the right chest fabric cuff beneath the skin exit site securing it with 3-0 nylon suture to the n remington incision. Smaller and medium sized dilators were placed over the J-wire. Internal jugular vein and removed. Dilator and pull-away sheath placed over the J-wire into the superior vena cava and J w loni and dilator removed. Catheter placed with pull-away sheath. Pull-away sheath removed. Platysma approximated with 4-0 Monocryl, skin with subdermal 4-0 Monocryl and DermaGlue applied. Each port a spirated blood and flushed with saline solution and then heparinized saline solution 1000 units hepar in/mL, the indicated volume on the port. Patient tolerated the procedure well. Fluoroscopic images revealed good line placement.
[2017-06-30] MEDS: Citrucel 500 MG TAB PO SCH ×3 (03:12→21:29)
[2017-06-30] MEDS: Vancomycin HCl 25 MG/ML Oral PO SCH ×4 (03:12→22:16)
[2017-06-30 06:06] LABS: Anion Gap 15 mmol/L (10-20); BUN (Urea Nitrogen) 98 mg/dL (8.4-25.7); Calc. Creatinine Clearance 36 mL/min (70-130); Calcium 8.5 mg/dL (7.8-10.44); Carbon Dioxide 27 mmol/L (23-31); Chloride 103 mmol/L (98-107); Estimated GFR-MDRD 26; Glucose 127 mg/dL (83-110); Potassium 3.7 mmol/L (3.5-5.1); Sodium 141 mmol/L (136-145)
[2017-06-30 06:18] LABS: Hemoglobin 7.3 g/dL (14.0-18.0); Mean Corpuscular Hemoglobin 26.8 pg (27.0-31.0); Mean Corpuscular Volume 86.2 fl (80.0-94.0); Mean Platelet Volume 7.8 fL (7.4-10.4); Platelet Count 314 thou/uL (130-400); RBC Distribution Width 18.5 % (11.5-14.5); Red Blood Cell (RBC) Count 2.75 mill/uL (4.70-6.10); White Blood Cell (WBC) Count 20.5 thou/uL (4.8-10.8)
[2017-06-30 06:35] LABS: Lymphocytes 4 % (21-51); MDiff Complete? YES; Monocytes 1 % (0-10); Neutrophil 95 % (42-75)
[2017-06-30] MEDS: Witch Hazel-Glycerin 1 EACH JAR TOP SCH ×4 (06:47→22:16)
[2017-06-30] MEDS: levETIRAcetam In NaCl (Iso-Os) 1,000 MG in Premix Bag 1 BAG IVPB SCH ×4 (08:44→21:29)
[2017-06-30] MEDS: Silver Sulfadiazine 1% Cream 50 GM TUBE TP SCH (08:45)
[2017-06-30] MEDS: Pantoprazole 40 MG GRANULES PACKET PER TUBE SCH (08:50)
[2017-06-30] MEDS: Lorazepam 2 MG/ML VIAL SLOW IVP PRN ×2 (09:42→16:58)
[2017-06-30] MEDS ORDERED: Heparin 1,000 UNITS/ML VIAL ONE (11:11)
[2017-06-30] MEDS: cefTRIAXone\\ROCEPHIN 2 GM in Sodium Chloride 0.9% 100 ML IVPB SCH (11:58)
--- NOTE | 2017-06-30 17:49 | PDOC.PN ---
- Subjective Encounter Start Date: 06/30/17 Encounter Start Time: 17:47 Subjective: seen and examined still intubated --still on life support - Objective Resuscitation Status: Resuscitation Status FULL:Full Resuscitation Vital Signs & Weight: Vital Signs (12 hours) Temp Pulse Resp Pulse Ox 06/30/17 16:00 97.3 F L 20 06/30/17 15:17 90 06/30/17 14:00 17 06/30/17 12:54 93 06/30/17 12:00 96.9 F L 14 06/30/17 11:05 91 06/30/17 10:00 13 06/30/17 08:00 20 06/30/17 07:24 97.3 F L 82 15 100 06/30/17 07:00 97.3 F L 06/30/17 06:45 86 06/30/17 06:00 19 Weight Admit Weight 260 lb 4.8 oz Weight 249 lb 9.012 oz Most Recent Monitor Data Heart Rate from ECG 84 NIBP 114/74 NIBP BP-Mean 92 Respiration from ECG 5 SpO2 100 I&O: 06/29/17 06/30/17 07/01/17 06:59 06:59 06:59 Intake Total 1886 733 622 Output Total 20 185 140 Balance 1866 548 482 Result Diagrams: 06/30/17 05:15 06/30/17 05:15 Additional Labs: Accuchecks 06/30/17 06/30/17 06/30/17 15:57 12:03 08:08 POC Glucose 92 104 140 H Phys Exam - Physical Examination intubated Neck: no nodes, no JVD Respiratory: no wheezing, no rales vented sounds Cardiovascular: RRR, no significant murmur Gastrointestinal: soft, non-tender, no distention Musculoskeletal: no edema, pulses present Dx/Plan (1) NAHUN (acute kidney injury) Code(s): N17.9 - ACUTE KIDNEY FAILURE, UNSPECIFIED Status: Acute Comment: Cr down to 2.12 after 1st HD. no indicative of renal function improvement (2) Acute hypoxemic respiratory failure Code(s): J96.01 - ACUTE RESPIRATORY FAILURE WITH HYPOXIA Status: Acute Comment: on SIMV, breathing on own, but no higher function off sedation. PC consult to contact family and assist with decision making (3) Acute intracranial hemorrhage Code(s): I62.9 - NONTRAUMATIC INTRACRANIAL HEMORRHAGE, UNSPECIFIED Status: Acute Comment: resultant brain injury apparent (4) Acute on chronic systolic (congestive) heart failure Code(s): I50.23 - ACUTE ON CHRONIC SYSTOLIC (CONGESTIVE) HEART FAILURE Status : Acute Comment: lung sounds stable (5) HTN (hypertension) Code(s): I10 - ESSENTIAL (PRIMARY) HYPERTENSION Status: Acute Qualifiers: Hypertension type: essential hypertension Qualified Code(s): I10 - Essential (primary) hypertension Comment: BP satisfactory.. (6) Physical deconditioning Code(s): R53.81 - OTHER MALAISE Status: Acute - Plan PT/OT, respiratory therapy vent management per pulmonary * .
--- NOTE | 2017-06-30 19:25 | PRG ---
DATE OF SERVICE: 06/30/2017 SUBJECTIVE: The patient was seen and examined in the ICU and still intubated. But, the patient is more alert per the nurse and responding more. OBJECTIVE: GENERAL: This is a well-built -[place] male and intubated and seen in ICU. VITAL SIGNS: Temperature 97.3, pulse 93, respiratory rate 23, blood pressure 127/70. HEENT: Intubated. CARDIOVASCULAR: S1 and S2 heard. RESPIRATORY: Clear anteriorly. GASTROINTESTINAL: Abdomen is soft. MUSCULOSKELETAL: 1+ edema. DERMATOLOGIC: No skin lesions. NEUROLOGIC: Intubated. LABORATORY DATA: Potassium is 3.7, BUN 98, and creatinine is 2.9. ASSESSMENT AND PLAN: 1. End-stage renal disease, started on hemodialysis and tolerating well. We will continue on dialys is as tolerated. 2. Azotemia with elevated BUN. Plan is to continue on dialysis, altered mentation, better with the nurses. 3. Hyperglycemia. Edema. 4. Diabetic nephropathy. 5. Anemia. Transfuse p.r.n. 6. We will continue on dialysis as tolerated. We will follow, altered mentation is better. We will follow.
--- NOTE | 2017-07-01 00:01 | PRG ---
DATE OF SERVICE: 06/30/2017 Mr. Chandler is unchanged. OBJECTIVE: VITAL SIGNS: He is still mechanically ventilated. He has made no progress. Intake and output is po sitive 548. Blood pressure 123/75, heart rate 88, oximetry is 100%. LUNGS: Remarkable for distant breath sounds. HEART: Regular rhythm. ABDOMEN: Soft. LABORATORY DATA: White count 20.5, hemoglobin 7.3, platelets 314,000. Sodium 141, potassium 3.7, chloride 103, bicarb 27, BUN 98, creatinine 2.93. A pH 7.49, CO2 of 39, pO2 of 83. IMPRESSION: 1. Respiratory failure, he is currently not weanable. 2. Chronic stasis ulcers. 3. Ventilator-associated pneumonia. 4. Clostridium difficile infection. 5. Subdural hematoma. 6. History of seizures. 7. Chronic kidney disease with progressive decline in renal function. 8. History of systolic heart failure. 9. Metabolic encephalopathy versus anoxic injury. If the family wants to continue aggressive care, then a tracheostomy and percutaneous endoscopic gastrostomy would be the next step in my opinion. A dialysis access has been placed and he is tolerating hemodialysis so far.
[2017-07-01] MEDS: Vancomycin HCl 25 MG/ML Oral PO SCH ×4 (02:28→20:17)
[2017-07-01 05:14] LABS: Anisocytosis SLIGHT = 6-15 cells (100X) (0-5/hpf); Eosinophils 1 % (0-10); Hypochromia SLIGHT = 6-15 cells (100X) (0-5/hpf); MDiff Complete? YES; Mean Corpuscular HGB CONC 31.1 g/dL (32.0-36.0); Mean Corpuscular Hemoglobin 26.9 pg (27.0-31.0); Mean Corpuscular Volume 86.5 fl (80.0-94.0); Mean Platelet Volume 7.7 fL (7.4-10.4); Monocytes 6 % (0-10); Neutrophil 93 % (42-75); Nucleated RBC 4 % (0); PLT Morphology Comment Appears Adequate; Platelet Count 351 thou/uL (130-400); RBC Distribution Width 18.5 % (11.5-14.5); Red Blood Cell (RBC) Count 2.99 mill/uL (4.70-6.10); Target Cells SLIGHT = 2-5 cells (100X) (0-1/hpf); White Blood Cell (WBC) Count 17.3 thou/uL (4.8-10.8)
[2017-07-01 05:15] LABS: Anion Gap 11 mmol/L (10-20); BUN (Urea Nitrogen) 56 mg/dL (8.4-25.7); Calc. Creatinine Clearance 52 mL/min (70-130); Calcium 8.1 mg/dL (7.8-10.44); Carbon Dioxide 29 mmol/L (23-31); Chloride 101 mmol/L (98-107); Estimated GFR-MDRD 39; Glucose 130 mg/dL (83-110); Potassium 3.5 mmol/L (3.5-5.1); Sodium 137 mmol/L (136-145)
[2017-07-01] MEDS: Citrucel 500 MG TAB PO SCH ×2 (08:33→20:17)
[2017-07-01] MEDS: Silver Sulfadiazine 1% Cream 50 GM TUBE TP SCH (08:34)
[2017-07-01] MEDS: Witch Hazel-Glycerin 1 EACH JAR TOP SCH ×3 (08:34→20:17)
[2017-07-01] MEDS: Pantoprazole 40 MG GRANULES PACKET PER TUBE SCH (08:34)
[2017-07-01] MEDS: levETIRAcetam In NaCl (Iso-Os) 1,000 MG in Premix Bag 1 BAG IVPB SCH ×4 (09:17→20:17)
[2017-07-01] MEDS: cefTRIAXone\\ROCEPHIN 2 GM in Sodium Chloride 0.9% 100 ML IVPB SCH (11:37)
--- NOTE | 2017-07-01 12:16 | PDOC.PN ---
- Subjective Encounter Start Date: 07/01/17 Encounter Start Time: 09:00 -: old records requested/rev pt is intubated, on ventilator Patient seen and examined. No overnight events - Objective Resuscitation Status: Resuscitation Status FULL:Full Resuscitation MAR Reviewed: Yes Vital Signs & Weight: Vital Signs (12 hours) Temp Pulse Resp Pulse Ox 07/01/17 12:00 98.1 F 11 L 07/01/17 11:33 95 07/01/17 10:00 14 07/01/17 08:00 26 H 07/01/17 07:19 97.6 F 90 12 100 07/01/17 06:59 97.6 F 07/01/17 06:54 85 07/01/17 06:00 14 07/01/17 04:00 98.0 F 11 L 07/01/17 02:00 12 07/01/17 01:53 86 Weight Admit Weight 260 lb 4.8 oz Weight 236 lb 15.951 oz Most Recent Monitor Data Heart Rate from ECG 100 NIBP 116/71 NIBP BP-Mean 82 Respiration from ECG 6 SpO2 100 I&O: 06/30/17 07/01/17 07/02/17 06:59 06:59 06:59 Intake Total 733 2484 350 Output Total 185 485 55 Balance 548 1999 295 Result Diagrams: 07/01/17 04:13 07/01/17 04:13 Additional Labs: Accuchecks 06/30/17 06/30/17 06/30/17 15:57 12:03 08:08 POC Glucose 92 104 140 H 06/30/17 06/29/17 06/29/17 05:49 14:13 10:15 POC Glucose 136 H 224 H 230 H Radiology Reviewed by me: Yes (chest xray on 06/29) EKG Reviewed by me: Yes Phys Exam - Physical Examination Constitutional: NAD intubated HEENT: PERRLA, sclera anicteric Neck: no nodes, no JVD, supple central line+ Respiratory: no wheezing, no rales, no rhonchi Cardiovascular: no significant murmur, no rub, irregular Gastrointestinal: soft, no distention, positive bowel sounds cuello+, rectal tube+ Musculoskeletal: edema present chronic stasis changes both leg unable to asssee Lymphatic: no nodes Skin: normal turgor Dx/Plan (1) Acute hypoxemic respiratory failure Code(s): J96.01 - ACUTE RESPIRATORY FAILURE WITH HYPOXIA Status: Acute Comment: on ventilator (2) Acute intracranial hemorrhage Code(s): I62.9 - NONTRAUMATIC INTRACRANIAL HEMORRHAGE, UNSPECIFIED Status: Acute Comment: SDH (3) Acute on chronic systolic (congestive) heart failure Code(s): I50.23 - ACUTE ON CHRONIC SYSTOLIC (CONGESTIVE) HEART FAILURE Status : Acute Comment: stabilized with HD (4) Acute worsening of stage 3 chronic kidney disease Code(s): N18.3 - CHRONIC KIDNEY DISEASE, STAGE 3 (MODERATE) Status: Acute Comment: now ESRD and started on HD (5) Clostridium difficile colitis Status: Acute Comment: on oral vancomycin (6) ESRD (end stage renal disease) on dialysis Code(s): N18.6 - END STAGE RENAL DISEASE; Z99.2 - DEPENDENCE ON RENAL DIALYSIS Status: Acute Comment: on HD (7) Physical deconditioning Code(s): R53.81 - OTHER MALAISE Status: Chronic (8) Seizure disorder as sequela of cerebrovascular accident Code(s): I69.398 - OTHER SEQUELAE OF CEREBRAL INFARCTION; G40.909 - EPILEPSY, UNSP, NOT INTRACTABLE, WITHOUT STATUS EPILEPTICUS Status: Acute Comment: On keisaccra (9) Severe sepsis with acute organ dysfunction Code(s): A41.9 - SEPSIS, UNSPECIFIED ORGANISM; R65.20 - SEVERE SEPSIS WITHOUT SEPTIC SHOCK Status: Acute Comment: (10) VAP (ventilator-associated pneumonia) Code(s): J95.851 - VENTILATOR ASSOCIATED PNEUMONIA Status: Acute Comment: new, not present on admit, cx with MSSa. Covered. (11) Cardiomyopathy Code(s): I42.9 - CARDIOMYOPATHY, UNSPECIFIED Status: Chronic Qualifiers: Cardiomyopathy type: unspecified Qualified Code(s): I42.9 - Cardiomyopathy , unspecified Comment: Has pacemaker defibrillator in place. (12) HTN (hypertension) Code(s): I10 - ESSENTIAL (PRIMARY) HYPERTENSION Status: Chronic Qualifiers: Hypertension type: essential hypertension Qualified Code(s): I10 - Essential (primary) hypertension Comment: BP satisfactory.. (13) Paroxysmal A-fib Code(s): I48.0 - PAROXYSMAL ATRIAL FIBRILLATION Status: Chronic (14) Atrial fibrillation with rapid ventricular response Code(s): I48.91 - UNSPECIFIED ATRIAL FIBRILLATION Status: Resolved (15) Hypothermia Code(s): T68.XXXA - HYPOTHERMIA, INITIAL ENCOUNTER Status: Resolved Qualifiers: Encounter type: initial encounter Qualified Code(s): T68.XXXA - Hypothermia , initial encounter Comment: REsolved. - Plan cont current plan of care, continue antibiotics, respiratory therapy * pt may need tracheostomy and PEG if aggressive approach desired by family * continue HD as per nephrology * continue rocephin * continue oral vancomycin * medication reviewed as below * symptomatic treatment * supportive care * prognosis guarded. Review of Systems - Review of Systems Other: unable to assess as pt is intubated - Medications/Allergies Allergies/Adverse Reactions: Allergies Allergy/AdvReac Type Severity Reaction Status Date / Time cortisone Allergy Unknown Verified 06/06/17 12:08 codeine Allergy Verified 06/06/17 12:08 morphine Allergy Verified 06/06/17 12:08 Penicillins Allergy Verified 06/06/17 12:08 propoxyphene Allergy Verified 06/06/17 12:08 Medications: Current Medications Acetaminophen (Tylenol) 650 mg PO Q4H PRN PRN Reason: Headache/Fever or Pain Acetaminophen (Tylenol) 650 mg MD Q6H PRN PRN Reason: Fever > 101 or Mild Pain Albuterol/Ipratropium (Duoneb) 3 ml NEB [id number] PRN PRN Reason: SOB &/or Wheezing Bisacodyl (Dulcolax) 10 mg MD DAILYPRN PRN PRN Reason: Constipation Dextrose/Water (Dextrose 50%) 25 gm IVP PRN PRN PRN Reason: HYPOGLYCEMIA PROTOCOL Last Admin: 06/20/17 09:20 Dose: 25 gm Glucagon (Glucagon) 1 mg IM PRN PRN PRN Reason: HYPOGLYCEMIA PROTOCOL Nicardipine HCl 25 mg/ Sodium (Chloride) 250 mls @ 0 mls/hr IVPB INF PRN; Protocol; Titrate PRN Reason: SBP > 150 OR DBP >90 Levetiracetam 1,000 mg/ Device 100 mls @ 200 mls/hr IVPB BID ROXANNA Last Admin: 07/01/17 09:17 Dose: 100 mls Dextrose/Water (D5w) 1,000 mls @ 0 mls/hr IV INF PRN; As Directed PRN Reason: HYPOGLYCEMIA PROTOCOL Sodium Chloride (Normal Saline 0.9%) 1,000 mls @ 0 mls/hr IV .Q0M ROXANNA PRN Reason: KVO Insulin Human Lispro (Humalog) 0 units SC .MODERATE SLIDING SC PRN; Protocol PRN Reason: MODERATE SLIDING SCALE Last Admin: 06/29/17 14:10 Dose: 4 unit Labetalol HCl (Normodyne) 10 mg SLOW IVP Q2H PRN PRN Reason: SBP > 150 or DBP > 90 Lorazepam (Ativan) 2 mg SLOW IVP Q15MIN PRN PRN Reason: Seizures Last Admin: 06/30/17 16:58 Dose: 2 mg Methylcellulose (Citrucel) 500 mg PO BID [facility] Last Admin: 07/01/17 08:33 Dose: 500 mg Mineral Oil/White Petrolatum (Lacri-Lube Ointment) 0 gm EA EYE PRN PRN PRN Reason: Dry Eyes Ondansetron HCl (Zofran) 4 mg IVP Q6H PRN PRN Reason: Nausea/Vomiting Last Admin: 06/06/17 13:20 Dose: 4 mg Pantoprazole Sodium (Protonix) 40 mg PER TUBE DAILY [facility] Last Admin: 07/01/17 08:34 Dose: 40 mg Silver Sulfadiazine (Silvadene Cream) 0 gm TP DAILY [facility] Last Admin: 07/01/17 08:34 Dose: 1 applic Sodium Chloride (Flush - Normal Saline) 10 ml IVF PRN PRN PRN Reason: Saline Flush Last Admin: 06/23/17 07:31 Dose: 10 ml Vancomycin HCl (First Vancomycin) 125 mg PO 0300,0900,1500,2100 [facility] Last Admin: 07/01/17 10:17 Dose: 125 mg Witch Elvia/Glycerin (Tucks Pads) 1 each TOP TID [facility] Last Admin: 07/01/17 08:34 Dose: 1 each
[2017-07-01] MEDS ORDERED: Heparin 10,000 UNITS/ 10 ML VIAL ONE (15:33)
--- NOTE | 2017-07-01 19:42 | PRG ---
DATE OF SERVICE: 07/01/2017 NEPHROLOGY PROGRESS NOTE SUBJECTIVE: The patient was seen and examined in ICU, patient remains intubated and not responding, but making nonpurposeful movements and patient was seen during dialysis. OBJECTIVE: GENERAL: This is a well-built male, intubated. VITAL SIGNS: Temperature 97.8, pulse 80, respiratory rate 18, blood pressure 123/80. HEENT: Intubated. CARDIOVASCULAR: S1, S2 heard. RESPIRATORY: Clear. GASTROINTESTINAL: Abdomen is soft. MUSCULOSKELETAL: No edema. DERMATOLOGIC: No skin rashes. NEUROLOGIC: Intubated, but not very responsive. ASSESSMENT AND PLAN: 1. End-stage renal disease, started on hemodialysis during this admission, tolerating well. 2. Azotemia with elevated BUN, getting better with dialysis. 3. Hyperglycemia. 4. Edema. 5. Diabetic nephropathy. 6. Anemia. 7. Acute hypoxic respiratory failure, intubated. 8. Altered mentation, fluctuating. We will continue on dialysis for azotemia clearance and we will evaluate the mental status. We will continue to follow. Prognosis remains guarded.
--- NOTE | 2017-07-02 02:00 | PRG ---
DATE OF SERVICE: 07/01/2017 SUBJECTIVE: Mr. Chandler is not clinically changed at all. I could not get him to arouse with sternal rub today. He apparently has intermittently been moving to stimuli by the nurses staff. OBJECTIVE: VITAL SIGNS: He is afebrile, heart rate is 87, respiratory rate is 12, blood pressure is 97/71. CARLEEN GS: Clear anteriorly. HEART: Regular rhythm. ABDOMEN: Soft. LABORATORY DATA: White count 17.3, hemoglobin 8.0, platelets 351. Sodium 137, potassium 3.5, chloride 101, bicarb 29, BUN 56, creatinine 2.02. IMPRESSION: 1. Respiratory failure, currently not weanable. 2. Encephalopathy. 3. Chronic kidney disease with acute decompensation, improving. 4. Chronic stasis ulcers. 5. Ventilator-associated pneumonia. 6. Clostridium difficile infection. 7. Subdural hematoma history. 8. History of seizures. 9. Systolic heart failure. 10. ? component of anoxic injury. PLAN: Continue supportive care. Family wants to continue aggressively. Consult for a trach this we ek with PEG should be entertained. I have not seen family at the bedside this weekend.
[2017-07-02] MEDS: Vancomycin HCl 25 MG/ML Oral PO SCH ×4 (03:06→20:32)
[2017-07-02 05:58] LABS: Anion Gap 12 mmol/L (10-20); BUN (Urea Nitrogen) 41 mg/dL (8.4-25.7); Calc. Creatinine Clearance 54 mL/min (70-130); Carbon Dioxide 30 mmol/L (23-31); Chloride 101 mmol/L (98-107); Estimated GFR-MDRD 44; Glucose 153 mg/dL (83-110); Potassium 3.6 mmol/L (3.5-5.1); Sodium 139 mmol/L (136-145)
[2017-07-02 06:33] LABS: Anisocytosis SLIGHT = 6-15 cells (100X) (0-5/hpf); Band 1 % (5-11); Eosinophils 1 % (0-10); Hemoglobin 8.7 g/dL (14.0-18.0); Lymphocytes 8 % (21-51); MDiff Complete? YES; Mean Corpuscular HGB CONC 30.4 g/dL (32.0-36.0); Mean Corpuscular Hemoglobin 26.8 pg (27.0-31.0); Mean Corpuscular Volume 88.2 fl (80.0-94.0); Monocytes 5 % (0-10); Neutrophil 85 % (42-75); Nucleated RBC 3 % (0); Platelet Count 371 thou/uL (130-400); Polychromasia SLIGHT = 2-3 cells (100X) (0-2/hpf); RBC Distribution Width 19.9 % (11.5-14.5); Red Blood Cell (RBC) Count 3.25 mill/uL (4.70-6.10); Target Cells SLIGHT = 2-5 cells (100X) (0-1/hpf); White Blood Cell (WBC) Count 16.8 thou/uL (4.8-10.8)
[2017-07-02] MEDS: Pantoprazole 40 MG GRANULES PACKET PER TUBE SCH (09:34)
[2017-07-02] MEDS: levETIRAcetam In NaCl (Iso-Os) 1,000 MG in Premix Bag 1 BAG IVPB SCH ×4 (09:36→20:32)
[2017-07-02] MEDS: Citrucel 500 MG TAB PO SCH ×2 (09:37→20:33)
[2017-07-02] MEDS: Silver Sulfadiazine 1% Cream 50 GM TUBE TP SCH (09:37)
[2017-07-02] MEDS: Witch Hazel-Glycerin 1 EACH JAR TOP SCH ×3 (09:37→20:33)
[2017-07-02] MEDS: Lorazepam 2 MG/ML VIAL SLOW IVP PRN (11:47)
--- NOTE | 2017-07-02 13:10 | PDOC.PULCC ---
CCU Progress Note: Subj/Obj - Subjective Date: 07/02/17 Time: 13:07 Subjective: Unable to follow commands. On vent - Objective Allergies/Adverse Reactions: Allergies Allergy/AdvReac Type Severity Reaction Status Date / Time cortisone Allergy Unknown Verified 06/06/17 12:08 codeine Allergy Verified 06/06/17 12:08 morphine Allergy Verified 06/06/17 12:08 Penicillins Allergy Verified 06/06/17 12:08 propoxyphene Allergy Verified 06/06/17 12:08 Medications: Current Medications Acetaminophen (Tylenol) 650 mg PO Q4H PRN PRN Reason: Headache/Fever or Pain Acetaminophen (Tylenol) 650 mg UT Q6H PRN PRN Reason: Fever > 101 or Mild Pain Albuterol/Ipratropium (Duoneb) 3 ml NEB [id number] PRN PRN Reason: SOB &/or Wheezing Bisacodyl (Dulcolax) 10 mg UT DAILYPRN PRN PRN Reason: Constipation Dextrose/Water (Dextrose 50%) 25 gm IVP PRN PRN PRN Reason: HYPOGLYCEMIA PROTOCOL Last Admin: 06/20/17 09:20 Dose: 25 gm Glucagon (Glucagon) 1 mg IM PRN PRN PRN Reason: HYPOGLYCEMIA PROTOCOL Nicardipine HCl 25 mg/ Sodium (Chloride) 250 mls @ 0 mls/hr IVPB INF PRN; Protocol; Titrate PRN Reason: SBP > 150 OR DBP >90 Levetiracetam 1,000 mg/ Device 100 mls @ 200 mls/hr IVPB BID [facility]OXAN[facility] Last Admin: 07/02/17 09:36 Dose: 100 mls Dextrose/Water (D5w) 1,000 mls @ 0 mls/hr IV INF PRN; As Directed PRN Reason: HYPOGLYCEMIA PROTOCOL Sodium Chloride (Normal Saline 0.9%) 1,000 mls @ 0 mls/hr IV .Q0M ROXANNA PRN Reason: KVO Last Admin: 07/01/17 20:12 Dose: 1,000 mls Insulin Human Lispro (Humalog) 0 units SC .MODERATE SLIDING SC PRN; Protocol PRN Reason: MODERATE SLIDING SCALE Last Admin: 06/29/17 14:10 Dose: 4 unit Labetalol HCl (Normodyne) 10 mg SLOW IVP Q2H PRN PRN Reason: SBP > 150 or DBP > 90 Lorazepam (Ativan) 2 mg SLOW IVP Q15MIN PRN PRN Reason: Seizures Last Admin: 07/02/17 11:47 Dose: 2 mg Methylcellulose (Citrucel) 500 mg PO BID [facility] Last Admin: 07/02/17 09:37 Dose: 500 mg Mineral Oil/White Petrolatum (Lacri-Lube Ointment) 0 gm EA EYE PRN PRN PRN Reason: Dry Eyes Ondansetron HCl (Zofran) 4 mg IVP Q6H PRN PRN Reason: Nausea/Vomiting Last Admin: 06/06/17 13:20 Dose: 4 mg Pantoprazole Sodium (Protonix) 40 mg PER TUBE DAILY [facility] Last Admin: 07/02/17 09:34 Dose: 40 mg Silver Sulfadiazine (Silvadene Cream) 0 gm TP DAILY [facility] Last Admin: 07/02/17 09:37 Dose: 1 applic Sodium Chloride (Flush - Normal Saline) 10 ml IVF PRN PRN PRN Reason: Saline Flush Last Admin: 06/23/17 07:31 Dose: 10 ml Vancomycin HCl (First Vancomycin) 125 mg PO 0300,0900,1500,2100 [facility] Last Admin: 07/02/17 09:34 Dose: 125 mg Witch Elvia/Glycerin (Tucks Pads) 1 each TOP TID [facility] Last Admin: 07/02/17 09:37 Dose: 1 each MAR Reviewed: Yes Vital Signs and I&O: Vital Signs Temp 97.4 F L 07/02/17 12:00 Pulse 84 07/02/17 10:55 Resp 13 07/02/17 12:00 BP 135/76 07/02/17 10:55 Pulse Ox 97 07/02/17 08:00 Intake & Output 07/01/17 07/02/17 07/02/17 18:59 06:59 18:59 Intake Total 1349 950 295 Output Total 275 315 65 Balance 1074 635 230 Weight 232 lb 9.403 oz Intake: Intake, IV Amount 509 306 100 Sodium Chloride 0.9% 1, 109 206 000 ml @ KVO IV .Q0M ROXANNA Rx#:[id number] cefTRIAXone\ROCEPHIN 2 gm 300 In Sodium Chloride 0.9% 100 ml @ 200 mls/hr IVPB Q24HR ROXANNA Rx#:[id number] levETIRAcetam In NaCl ( 100 100 100 Iso-Os) 1,000 mg In Premix Bag 1 bag @ 200 mls/hr IVPB BID [facility] Rx#: [id number] Oral Supplement 60 Tube Feeding 540 464 Tube Irrigant 240 180 195 Output: Output, Vazquez 75 65 65 Stool 200 250 Other: *Amount Reported-OUT Dialysis 2,000 Voiding Method Indwelling Catheter Indwelling Catheter Indwelling Catheter Vent Setting: simv 6/470/peep 5/ ps13/ 27% Spontaneous Breathing Test: not done CCU Progress Note: Exam - Physical Exam Deviation from normal: flailing movements, bites ETT HEENT: PERRLA, moist MMs Neck: no nodes, no JVD Cardiovascular: RRR Respiratory: clear to auscultation anteriorly Gastrointestinal: soft Deviation from normal: arellano noted on lower abdomen Musculoskeletal: edema present Neurological: moves all 4 limbs Lymphatic: no nodes Deviation from normal: severe edema in LE - Labs Result Diagrams: 07/02/17 04:00 07/02/17 04:00 Lab results: Laboratory Results - last 24 hr 06/30/17 07/01/17 07/01/17 19:53 00:12 04:05 WBC RBC Hgb Hct MCV MCH MCHC RDW Plt Count MPV Neutrophils % (Manual) Band Neuts % (Manual) Lymphocytes % (Manual) Monocytes % (Manual) Eosinophils % (Manual) Nucleated RBCs # (Man) Polychromasia Anisocytosis Target Cells Sodium Potassium Chloride Carbon Dioxide Anion Gap BUN Creatinine Estimated GFR (MDRD) Glucose POC Glucose 107 116 H 132 H Calcium 07/01/17 07/01/17 07/01/17 09:54 11:45 15:43 WBC RBC Hgb Hct MCV MCH MCHC RDW Plt Count MPV Neutrophils % (Manual) Band Neuts % (Manual) Lymphocytes % (Manual) Monocytes % (Manual) Eosinophils % (Manual) Nucleated RBCs # (Man) Polychromasia Anisocytosis Target Cells Sodium Potassium Chloride Carbon Dioxide Anion Gap BUN Creatinine Estimated GFR (MDRD) Glucose POC Glucose 378 H 106 107 Calcium 07/01/17 07/02/17 07/02/17 20:11 00:17 03:31 WBC RBC Hgb Hct MCV MCH MCHC RDW Plt Count MPV Neutrophils % (Manual) Band Neuts % (Manual) Lymphocytes % (Manual) Monocytes % (Manual) Eosinophils % (Manual) Nucleated RBCs # (Man) Polychromasia Anisocytosis Target Cells Sodium Potassium Chloride Carbon Dioxide Anion Gap BUN Creatinine Estimated GFR (MDRD) Glucose POC Glucose 109 84 89 Calcium 07/02/17 07/02/17 07/02/17 04:00 04:00 07:48 WBC 16.8 H RBC 3.25 L Hgb 8.7 L Hct 28.6 L MCV 88.2 MCH 26.8 L MCHC 30.4 L RDW 19.9 H Plt Count 371 MPV 8.0 Neutrophils % (Manual) 85 H Band Neuts % (Manual) 1 L Lymphocytes % (Manual) 8 L Monocytes % (Manual) 5 Eosinophils % (Manual) 1 Nucleated RBCs # (Man) 3 H Polychromasia SLIGHT = 2-3 cells Anisocytosis SLIGHT = 6-15 cells Target Cells SLIGHT = 2-5 cells Sodium 139 Potassium 3.6 Chloride 101 Carbon Dioxide 30 Anion Gap 12 BUN 41 H Creatinine 1.82 H Estimated GFR (MDRD) 44 Glucose 153 H POC Glucose 102 Calcium 8.0 07/02/17 11:52 WBC RBC Hgb Hct MCV MCH MCHC RDW Plt Count MPV Neutrophils % (Manual) Band Neuts % (Manual) Lymphocytes % (Manual) Monocytes % (Manual) Eosinophils % (Manual) Nucleated RBCs # (Man) Polychromasia Anisocytosis Target Cells Sodium Potassium Chloride Carbon Dioxide Anion Gap BUN Creatinine Estimated GFR (MDRD) Glucose POC Glucose 100 Calcium CCU Progress Note: A/P - Problems (1) Acute hypoxemic respiratory failure Current Visit: Yes Status: Acute Code(s): J96.01 - ACUTE RESPIRATORY FAILURE WITH HYPOXIA (2) Acute worsening of stage 3 chronic kidney disease Current Visit: Yes Status: Acute Code(s): N18.3 - CHRONIC KIDNEY DISEASE, STAGE 3 (MODERATE) (3) Severe sepsis with acute organ dysfunction Current Visit: Yes Status: Acute Code(s): A41.9 - SEPSIS, UNSPECIFIED ORGANISM; R65.20 - SEVERE SEPSIS WITHOUT SEPTIC SHOCK - Time Spent with Patient Time: 30 min cc time - Plan Plan: not weanable. Very difficult family situation. Has been on vent since 06/05. Likely needs trach and PEG. Palliative care working with family
--- NOTE | 2017-07-02 15:12 | PDOC.PN ---
- Subjective Encounter Start Date: 07/02/17 Encounter Start Time: 15:11 Patient seen at bedside. No overnight events, opens eyes, intermittently follows commands - Objective Resuscitation Status: Resuscitation Status FULL:Full Resuscitation Vital Signs & Weight: Vital Signs (12 hours) Temp Pulse Resp BP Pulse Ox 07/02/17 15:02 80 07/02/17 14:00 17 07/02/17 12:00 97.4 F L 13 07/02/17 10:55 84 135/76 07/02/17 10:00 11 L 07/02/17 09:50 90 136/119 H 07/02/17 08:00 98.1 F 93 11 L 97 07/02/17 06:00 20 07/02/17 04:00 97.5 F L 21 H Weight Admit Weight 260 lb 4.8 oz Weight 232 lb 9.403 oz Most Recent Monitor Data Heart Rate from ECG 81 NIBP 136/78 NIBP BP-Mean 99 Respiration from ECG 5 SpO2 100 I&O: 07/01/17 07/02/17 07/03/17 06:59 06:59 06:59 Intake Total 2484 2299 355 Output Total 485 590 80 Balance 1998 1709 275 Result Diagrams: 07/02/17 04:00 07/02/17 04:00 Additional Labs: Accuchecks 07/02/17 07/02/17 07/02/17 11:52 07:48 03:31 POC Glucose 100 102 89 07/02/17 07/01/17 07/01/17 00:17 20:11 15:43 POC Glucose 84 109 107 07/01/17 07/01/17 07/01/17 11:45 09:54 04:05 POC Glucose 106 378 H 132 H 07/01/17 06/30/17 00:12 19:53 POC Glucose 116 H 107 Phys Exam - Physical Examination Constitutional: NAD HEENT: moist MMs ET Tube in place Respiratory: clear to auscultation bilateral Cardiovascular: RRR Musculoskeletal: edema present Dx/Plan (1) Acute hypoxemic respiratory failure Code(s): J96.01 - ACUTE RESPIRATORY FAILURE WITH HYPOXIA Status: Acute Comment: on ventilator (2) Acute on chronic systolic (congestive) heart failure Code(s): I50.23 - ACUTE ON CHRONIC SYSTOLIC (CONGESTIVE) HEART FAILURE Status : Acute Comment: stabilized with HD (3) Clostridium difficile colitis Status: Acute Comment: on oral vancomycin (4) ESRD (end stage renal disease) on dialysis Code(s): N18.6 - END STAGE RENAL DISEASE; Z99.2 - DEPENDENCE ON RENAL DIALYSIS Status: Acute Comment: on HD (5) Seizure disorder as sequela of cerebrovascular accident Code(s): I69.398 - OTHER SEQUELAE OF CEREBRAL INFARCTION; G40.909 - EPILEPSY, UNSP, NOT INTRACTABLE, WITHOUT STATUS EPILEPTICUS Status: Acute Comment: On keppra - Plan cont current plan of care, cuello catheter, continue antibiotics, respiratory therapy, DVT proph w/SCDs * Ventilator management per PCCM. * HD per nephrology * Continue Keppra * PO Vancomycin * May require trach and PEG if family wishes for further aggressive care. * Palliative care consulted * Supportive Care
--- NOTE | 2017-07-02 22:20 | PRG ---
DATE OF SERVICE: 07/02/2017 SUBJECTIVE: The patient was seen and examined in the ICU and remains intubated and continuing discus lio with the family. The patient need trach and PEG via the vent since 06/05. OBJECTIVE: GENERAL: This is a well-developed female, is on ventilator and not responding. VITAL SIGNS: Temperature 97.6, pulse 80, respiratory rate 28, blood pressure 117/75. HEENT: Intubated. CARDIOVASCULAR: S1, S2 heard. RESPIRATORY: Clear. ABDOMEN: Soft. MUSCULOSKELETAL: 1+ edema. DERMATOLOGIC: No skin rash. NEUROLOGIC: Intubated, not responding. Make a non-purposeful movements. LABORATORY DATA: Sodium is 139, potassium is 3.6, BUN is 41, creatinine is 1.8. ASSESSMENT AND PLAN: 1. End-stage renal disease on hemodialysis, tolerated dialysis. We will continue on dialysis. 2. Altered mentation, not better with clearance of azotemia. 3. Hyperlipidemia. 4. Edema. 5. Diabetic nephropathy. 6. Anemia. 7. respiratory failure. Plan is to continue on dialysis as tolerated. We will plan for dialysis tomorrow.
[2017-07-03] MEDS: Labetalol HCl 100 MG/20 ML VIAL SLOW IVP PRN (00:41)
[2017-07-03] MEDS: Lorazepam 2 MG/ML VIAL SLOW IVP PRN (02:22)
[2017-07-03] MEDS: Vancomycin HCl 25 MG/ML Oral PO SCH ×4 (03:25→21:11)
[2017-07-03 05:39] LABS: Anion Gap 12 mmol/L (10-20); BUN (Urea Nitrogen) 53 mg/dL (8.4-25.7); Calc. Creatinine Clearance 47 mL/min (70-130); Calcium 8.3 mg/dL (7.8-10.44); Carbon Dioxide 29 mmol/L (23-31); Chloride 101 mmol/L (98-107); Estimated GFR-MDRD 38; Glucose 131 mg/dL (83-110); Potassium 3.6 mmol/L (3.5-5.1); Sodium 138 mmol/L (136-145)
[2017-07-03 05:47] LABS: Anisocytosis SLIGHT = 6-15 cells (100X) (0-5/hpf); Band 3 % (5-11); Eosinophils 4 % (0-10); Hemoglobin 8.9 g/dL (14.0-18.0); Hypochromia SLIGHT = 6-15 cells (100X) (0-5/hpf); Lymphocytes 7 % (21-51); MDiff Complete? YES; Mean Corpuscular HGB CONC 30.3 g/dL (32.0-36.0); Mean Corpuscular Hemoglobin 26.9 pg (27.0-31.0); Mean Corpuscular Volume 88.5 fl (80.0-94.0); Mean Platelet Volume 8.1 fL (7.4-10.4); Monocytes 7 % (0-10); Neutrophil 79 % (42-75); Platelet Count 410 thou/uL (130-400); Polychromasia SLIGHT = 2-3 cells (100X) (0-2/hpf); RBC Distribution Width 19.5 % (11.5-14.5); Red Blood Cell (RBC) Count 3.33 mill/uL (4.70-6.10)
[2017-07-03] MEDS: Citrucel 500 MG TAB PO SCH ×2 (08:29→21:11)
[2017-07-03] MEDS: levETIRAcetam In NaCl (Iso-Os) 1,000 MG in Premix Bag 1 BAG IVPB SCH ×4 (08:29→21:11)
[2017-07-03] MEDS: Pantoprazole 40 MG GRANULES PACKET PER TUBE SCH (08:29)
[2017-07-03] MEDS: Silver Sulfadiazine 1% Cream 50 GM TUBE TP SCH (08:30)
[2017-07-03] MEDS: Witch Hazel-Glycerin 1 EACH JAR TOP SCH ×3 (08:31→21:12)
--- NOTE | 2017-07-03 09:31 | PRG ---
DATE OF SERVICE: 07/03/2017 Thirty five minutes critical care time. SUBJECTIVE: Patient remains intubated on mechanical ventilation. Apparently no decision has been ma de about going through tracheostomy and PEG tube placement. PHYSICAL EXAMINATION: VITAL SIGNS: Temperature is 99.7, pulse 87, blood pressure 163/80, 24-hour intake 2539 and output 28 0, weight 238 pounds. NEUROLOGIC: He will move around, but does not follow any commands. HEENT: Pupils react. Sclerae are anicteric. Oropharynx clear. NECK: No JVD. LUNGS: Coarse breath sounds anteriorly. CARDIOVASCULAR: S1 and S2 regular. ABDOMEN: Soft, obese, nontender. EXTREMITIES: Edematous. LABORATORY DATA: White blood cell count 14, hematocrit 29.4, platelet count 410. Sodium 138, potass ium 3.6, chloride 101, CO2 29, BUN 53, creatinine 2.1, and glucose 131. ASSESSMENT: 1. Acute respiratory failure requiring mechanical ventilation. 2. Renal failure requiring hemodialysis. 3. Sepsis with organ dysfunction. PLAN: The patient is not weanable. In my opinion, he needs trach and PEG if care is going to contin ue. I am not sure where the palliative care folks are with the family and hopefully further discussi on will be had today on that.
--- NOTE | 2017-07-03 10:11 | PRG ---
DATE OF SERVICE: 07/03/2017 SUBJECTIVE: The patient was seen and examined in ICU, intubated. The patient is on dialysis. He is seen during dialysis with nonpurposeful movements, not responding very well. OBJECTIVE: GENERAL: This is a well-built male intubated and seen in ICU. VITAL SIGNS: Temperature 97.7, pulse 96, respiratory rate 18, blood pressure 153/92. HEENT: Intubated CARDIOVASCULAR: S1, S2 heard, tachycardic. RESPIRATORY: Clear anteriorly. ABDOMEN: Abdomen is soft. MUSCULOSKELETAL: 1+ edema. DERMATOLOGIC: Chronic skin lesions. NEUROLOGIC: Intubated and not responding very well, but nonpurposeful movements. LABORATORY DATA: Hemoglobin is 8.9. Potassium is 3.6, BUN 53, creatinine is 2.07. ASSESSMENT AND PLAN: 1. End-stage renal disease on hemodialysis. Urine output remains minimal, but with good clearance w ith dialysis. He made only 180 mL of urine yesterday and 140 the day before. 2. Will continue on dialysis as tolerated with good clearance if tolerated. 3. Altered mentation, not much better. 4. Hyperkalemia, much better. 5. Edema, remove fluid. 6. Anemia. 7. Diabetic nephropathy. 8. Proteinuria. 9. Acute hypoxic respiratory failure. Plan is to have dialysis Sunday, and Sunday as tolerated. Monitor BUN and mental status. We will follow.
[2017-07-03 10:39] LABS: Actual Bicarbonate (HCO3a) 26.5 mEq/L (22-26); Base Excess (BEa) 3.5 mEq/L (0 (+/-) 2.5); Calcium, Ionized 1.1 mmol/L (1.12-1.30); Hematocrit-ABG 32.5 % (42.0-52.0); Hemoglobin (Hb) 9.4 g/dL (14.0-18.0); O2 Tension (PaO2) 63.7 mmHg (80.0-100.0); pH, Arterial 7.51 (7.35-7.45)
[2017-07-03 10:45] LABS: Puncture Site RBA
[2017-07-03] MEDS ORDERED: Heparin 10,000 UNITS/ 10 ML VIAL ONE (11:00)
--- NOTE | 2017-07-03 11:52 | PDOC.PN ---
- Subjective Encounter Start Date: 07/03/17 Encounter Start Time: 12:30 -: non-verbal Subjective: No response on vent. Family deciding on trach/PEG vs. comfort care. - Objective Resuscitation Status: Resuscitation Status FULL:Full Resuscitation MAR Reviewed: Yes Vital Signs & Weight: Vital Signs (12 hours) Temp Pulse Resp BP Pulse Ox 07/03/17 10:00 16 07/03/17 08:00 97.8 F 95 22 H 100 07/03/17 05:48 26 H 07/03/17 04:00 97.7 F 14 07/03/17 02:00 12 07/03/17 00:41 101 H 171/107 H 07/03/17 00:00 97.8 F 11 L Weight Admit Weight 260 lb 4.8 oz Weight 238 lb 8.642 oz Most Recent Monitor Data Heart Rate from ECG 98 NIBP 147/77 NIBP BP-Mean 109 Respiration from ECG 7 SpO2 100 I&O: 07/02/17 07/03/17 07/04/17 06:59 06:59 06:59 Intake Total 2299 2539 58 Output Total 590 280 19 Balance 1709 2259 39 Result Diagrams: 07/03/17 04:20 07/03/17 04:20 Additional Labs: Accuchecks 07/03/17 07/03/17 07/02/17 04:45 00:15 20:31 POC Glucose 126 H 87 91 07/02/17 07/02/17 15:48 11:52 POC Glucose 94 100 Phys Exam - Physical Examination HEENT: moist MMs Respiratory: no wheezing, no rales, no rhonchi Cardiovascular: RRR Gastrointestinal: soft, positive bowel sounds not moving extremities Deviation from normal: unresponsive on vent currently Dx/Plan (1) Acute hypoxemic respiratory failure Code(s): J96.01 - ACUTE RESPIRATORY FAILURE WITH HYPOXIA Status: Acute Comment: on ventilator (2) Acute on chronic systolic (congestive) heart failure Code(s): I50.23 - ACUTE ON CHRONIC SYSTOLIC (CONGESTIVE) HEART FAILURE Status : Acute Comment: stabilized with HD (3) Clostridium difficile colitis Status: Acute Comment: on oral vancomycin (4) ESRD (end stage renal disease) on dialysis Code(s): N18.6 - END STAGE RENAL DISEASE; Z99.2 - DEPENDENCE ON RENAL DIALYSIS Status: Acute Comment: on HD (5) Seizure disorder as sequela of cerebrovascular accident Code(s): I69.398 - OTHER SEQUELAE OF CEREBRAL INFARCTION; G40.909 - EPILEPSY, UNSP, NOT INTRACTABLE, WITHOUT STATUS EPILEPTICUS Status: Acute Comment: On chriss - Plan cont current plan of care, continue antibiotics, respiratory therapy Family to decide on Trach/PEG vs. comfort care only * . - Discharge Day Encounter end time: 13:00
--- NOTE | 2017-07-03 12:20 | EEG ---
Referring Physician: YOLANDE JACKSON EEG # [id number] TEST TYPE: ROUTINE PORTABLE INPATIENT REASON FOR EEG: LEFT FOCAL MOTOR SEIZURES EEG DESCRIPTION: This is a 21 channel digital EEG recording. Electrodes are placed according to international 10-20 electrode placement system. The background rhythm is predominately 4-5 hertz, low voltage theta rhythm. There is asymmetry in that the right hemisphere is suppressed with 2-3 hertz low voltage delta rhythm. HYPERVENTILATION: Could not be performed. PHOTIC STIMULATION: Showed no effect. There are no epileptiform discharges noted. EKG LEAD: Shows 78 beats per minute, regular rhythm. IMPRESSION: THIS IS AN ABNORMAL EEG. IT SHOWS DIFFUSE SLOWING WITH ASYMMETRY TOWARD THE RIGHT HEMISPHERE. THIS WOULD BE CONSISTENT WITH THE PATIENT'S UNDERLYING RIGHT SIDED SUBDURAL HEMATOMA. THERE WERE NO EPILEPTIFORM DISCHARGES OR ELECTROGRAPHIC SEIZURES NOTED. Digital Printer: ELY Candy Dipper Hand: [email or web address]
[2017-07-04] MEDS: Labetalol HCl 100 MG/20 ML VIAL SLOW IVP PRN (01:21)
[2017-07-04] MEDS: Vancomycin HCl 25 MG/ML Oral PO SCH ×3 (03:05→18:26)
[2017-07-04 04:37] LABS: Anion Gap 12 mmol/L (10-20); BUN (Urea Nitrogen) 49 mg/dL (8.4-25.7); Calc. Creatinine Clearance 56 mL/min (70-130); Calcium 8.3 mg/dL (7.8-10.44); Carbon Dioxide 30 mmol/L (23-31); Chloride 101 mmol/L (98-107); Estimated GFR-MDRD 45; Glucose 118 mg/dL (83-110); Potassium 3.8 mmol/L (3.5-5.1); Sodium 139 mmol/L (136-145)
[2017-07-04 05:01] LABS: Anisocytosis SLIGHT = 6-15 cells (100X) (0-5/hpf); Band 1 % (5-11); Eosinophils 3 % (0-10); Hemoglobin 8.2 g/dL (14.0-18.0); Hypochromia SLIGHT = 6-15 cells (100X) (0-5/hpf); Lymphocytes 10 % (21-51); MDiff Complete? YES; Mean Corpuscular HGB CONC 30.7 g/dL (32.0-36.0); Mean Corpuscular Hemoglobin 27.1 pg (27.0-31.0); Mean Corpuscular Volume 88.2 fl (80.0-94.0); Mean Platelet Volume 8.2 fL (7.4-10.4); Monocytes 12 % (0-10); Neutrophil 74 % (42-75); Platelet Count 357 thou/uL (130-400); RBC Distribution Width 19.6 % (11.5-14.5); Red Blood Cell (RBC) Count 3.03 mill/uL (4.70-6.10); White Blood Cell (WBC) Count 12.8 thou/uL (4.8-10.8)
[2017-07-04] MEDS: Citrucel 500 MG TAB PO SCH (08:01)
[2017-07-04] MEDS: Pantoprazole 40 MG GRANULES PACKET PER TUBE SCH (08:01)
[2017-07-04] MEDS: Silver Sulfadiazine 1% Cream 50 GM TUBE TP SCH (08:02)
[2017-07-04] MEDS: Witch Hazel-Glycerin 1 EACH JAR TOP SCH ×2 (08:02→18:26)
--- NOTE | 2017-07-04 09:38 | PDOC.PN ---
- Subjective Encounter Start Date: 07/04/17 Encounter Start Time: 10:00 Subjective: No changes. Unresponsive. Unable to wean. Sons spoke with palliative care -: and have decided to withdraw care. - Objective Resuscitation Status: Resuscitation Status FULL:Full Resuscitation MAR Reviewed: Yes Vital Signs & Weight: Vital Signs (12 hours) Temp Pulse Resp BP Pulse Ox 07/04/17 08:00 98.9 F 91 18 100 07/04/17 06:00 11 L 07/04/17 04:00 98.7 F 19 07/04/17 01:43 14 07/04/17 01:21 114 H 167/84 H 07/04/17 00:00 98.7 F 18 07/03/17 22:00 17 Weight Admit Weight 260 lb 4.8 oz Weight 235 lb 14.314 oz Most Recent Monitor Data Heart Rate from ECG 88 NIBP 145/82 NIBP BP-Mean 84 Respiration from ECG 18 SpO2 100 I&O: 07/03/17 07/04/17 07/05/17 06:59 06:59 06:59 Intake Total 2539 1779 Output Total 280 251 19 Balance 2259 1528 -19 Result Diagrams: 07/04/17 04:00 07/04/17 04:00 Additional Labs: Accuchecks 07/03/17 07/03/17 12:39 08:29 POC Glucose 77 79 Phys Exam - Physical Examination intubated, not arousable Respiratory: no wheezing, no rales, no rhonchi Cardiovascular: RRR Gastrointestinal: soft, positive bowel sounds no response to pain Dx/Plan (1) Acute hypoxemic respiratory failure Code(s): J96.01 - ACUTE RESPIRATORY FAILURE WITH HYPOXIA Status: Acute Comment: on ventilator (2) Acute on chronic systolic (congestive) heart failure Code(s): I50.23 - ACUTE ON CHRONIC SYSTOLIC (CONGESTIVE) HEART FAILURE Status : Acute Comment: stabilized with HD (3) Clostridium difficile colitis Status: Acute Comment: on oral vancomycin (4) ESRD (end stage renal disease) on dialysis Code(s): N18.6 - END STAGE RENAL DISEASE; Z99.2 - DEPENDENCE ON RENAL DIALYSIS Status: Acute Comment: on HD (5) Seizure disorder as sequela of cerebrovascular accident Code(s): I69.398 - OTHER SEQUELAE OF CEREBRAL INFARCTION; G40.909 - EPILEPSY, UNSP, NOT INTRACTABLE, WITHOUT STATUS EPILEPTICUS Status: Acute Comment: On chriss - Plan Agree that withdraw of care is appropriate given patient's lack of response -: to treatment and inability to wean vent during this very prolonged course. -: Anticipate later today after withdraw. * . - Discharge Day Encounter end time: 10:30
--- NOTE | 2017-07-04 09:46 | PDOC.PULCC ---
CCU Progress Note: Subj/Obj - Subjective Date: 07/04/17 Time: 09:45 Subjective: Comatose. Can't communicate - Objective Allergies/Adverse Reactions: Allergies Allergy/AdvReac Type Severity Reaction Status Date / Time cortisone Allergy Unknown Verified 06/06/17 12:08 codeine Allergy Verified 06/06/17 12:08 morphine Allergy Verified 06/06/17 12:08 Penicillins Allergy Verified 06/06/17 12:08 propoxyphene Allergy Verified 06/06/17 12:08 Medications: Current Medications Acetaminophen (Tylenol) 650 mg PO Q4H PRN PRN Reason: Headache/Fever or Pain Acetaminophen (Tylenol) 650 mg RI Q6H PRN PRN Reason: Fever > 101 or Mild Pain Albuterol/Ipratropium (Duoneb) 3 ml NEB [id number] PRN PRN Reason: SOB &/or Wheezing Bisacodyl (Dulcolax) 10 mg RI DAILYPRN PRN PRN Reason: Constipation Dextrose/Water (Dextrose 50%) 25 gm IVP PRN PRN PRN Reason: HYPOGLYCEMIA PROTOCOL Last Admin: 06/20/17 09:20 Dose: 25 gm Glucagon (Glucagon) 1 mg IM PRN PRN PRN Reason: HYPOGLYCEMIA PROTOCOL Nicardipine HCl 25 mg/ Sodium (Chloride) 250 mls @ 0 mls/hr IVPB INF PRN; Protocol; Titrate PRN Reason: SBP > 150 OR DBP >90 Levetiracetam 1,000 mg/ Device 100 mls @ 200 mls/hr IVPB BID ROXANNA Last Admin: 07/03/17 21:11 Dose: 100 mls Dextrose/Water (D5w) 1,000 mls @ 0 mls/hr IV INF PRN; As Directed PRN Reason: HYPOGLYCEMIA PROTOCOL Sodium Chloride (Normal Saline 0.9%) 1,000 mls @ 0 mls/hr IV .Q0M ROXANNA PRN Reason: KVO Last Admin: 07/01/17 20:12 Dose: 1,000 mls Insulin Human Lispro (Humalog) 0 units SC .MODERATE SLIDING SC PRN; Protocol PRN Reason: MODERATE SLIDING SCALE Last Admin: 06/29/17 14:10 Dose: 4 unit Labetalol HCl (Normodyne) 10 mg SLOW IVP Q2H PRN PRN Reason: SBP > 150 or DBP > 90 Last Admin: 07/04/17 01:21 Dose: 10 mg Methylcellulose (Citrucel) 500 mg PO BID [facility] Last Admin: 07/04/17 08:01 Dose: 500 mg Mineral Oil/White Petrolatum (Lacri-Lube Ointment) 0 gm EA EYE PRN PRN PRN Reason: Dry Eyes Ondansetron HCl (Zofran) 4 mg IVP Q6H PRN PRN Reason: Nausea/Vomiting Last Admin: 06/06/17 13:20 Dose: 4 mg Pantoprazole Sodium (Protonix) 40 mg PER TUBE DAILY [facility] Last Admin: 07/04/17 08:01 Dose: 40 mg Silver Sulfadiazine (Silvadene Cream) 0 gm TP DAILY [facility] Last Admin: 07/04/17 08:02 Dose: 1 applic Sodium Chloride (Flush - Normal Saline) 10 ml IVF PRN PRN PRN Reason: Saline Flush Last Admin: 06/23/17 07:31 Dose: 10 ml Vancomycin HCl (First Vancomycin) 125 mg PO 0300,0900,1500,2100 [facility] Last Admin: 07/04/17 03:05 Dose: 125 mg Witch Elvia/Glycerin (Tucks Pads) 1 each TOP TID [facility] Last Admin: 07/04/17 08:02 Dose: 1 each MAR Reviewed: Yes Vital Signs and I&O: Vital Signs Temp 98.9 F 07/04/17 08:00 Pulse 91 07/04/17 08:00 Resp 18 07/04/17 08:00 BP 167/84 H 07/04/17 01:21 Pulse Ox 100 07/04/17 08:00 Intake & Output 07/03/17 07/04/17 07/04/17 18:59 06:59 18:59 Intake Total 885 894 Output Total 56 195 19 Balance 829 699 -19 Weight 238 lb 8.642 oz 235 lb 14.314 oz Intake: Intake, IV Amount 212 311 Sodium Chloride 0.9% 1, 212 211 000 ml @ KVO IV .Q0M [facility] Rx#:[id number] levETIRAcetam In NaCl ( 100 Iso-Os) 1,000 mg In Premix Bag 1 bag @ 200 mls/hr IVPB BID [facility] Rx#: [id number] Tube Feeding 476 493 Tube Irrigant 197 90 Output: Output, Vazquez 56 95 19 Stool 100 Other: *Amount Reported-OUT Dialysis 3,000 Voiding Method Indwelling Catheter Indwelling Catheter Indwelling Catheter # Bowel Movements 100 Vent Setting: See ABG Spontaneous Breathing Test: not done CCU Progress Note: Exam - Physical Exam HEENT: PERRLA, moist MMs Neck: no nodes, no JVD Cardiovascular: RRR Respiratory: clear to auscultation bilaterally Gastrointestinal: soft, no distention Musculoskeletal: edema present Deviation from normal: won't follow commands Lymphatic: no nodes Deviation from normal: brawny edema throughout - Labs Result Diagrams: 07/04/17 04:00 07/04/17 04:00 Lab results: Laboratory Results - last 24 hr 07/03/17 07/03/17 07/03/17 08:29 10:25 12:39 WBC RBC Hgb Hct MCV MCH MCHC RDW Plt Count MPV Neutrophils % (Manual) Band Neuts % (Manual) Lymphocytes % (Manual) Monocytes % (Manual) Eosinophils % (Manual) Hypochromia Anisocytosis Specimen Type ARTERIAL Puncture Site RBA Bicarbonate Actual 26.5 H ABG pH 7.51 H ABG pCO2 34.0 L ABG pO2 63.7 L ABG O2 Sat Calc/Amy 95.4 ABG O2 Content 12.4 L ABG Base Excess 3.5 H ABG Hematocrit 32.5 L ABG Hemoglobin 9.4 L ABG Oxyhemoglobin 93.1 L ABG Carboxyhemoglobin 1.9 ABG Methemoglobin 0.5 ABG Deoxyhemoglobin 4.5 Edward Test NOT DONE A-a O2 Gradient 86.850 H Sodium 140 Potassium 3.7 Chloride 100 Ionized Calcium 1.1 L Mode of Support SIMV/PSV Mechanical Rate 6 Inspired O2 27 Tidal Volume 470 Pressure Support 13 PEEP or CPAP 5.0 Carbon Dioxide Anion Gap BUN Creatinine Estimated GFR (MDRD) Glucose POC Glucose 79 77 Calcium 07/04/17 07/04/17 04:00 04:00 WBC 12.8 H RBC 3.03 L Hgb 8.2 L Hct 26.8 L MCV 88.2 MCH 27.1 MCHC 30.7 L RDW 19.6 H Plt Count 357 MPV 8.2 Neutrophils % (Manual) 74 Band Neuts % (Manual) 1 L Lymphocytes % (Manual) 10 L Monocytes % (Manual) 12 H Eosinophils % (Manual) 3 Hypochromia SLIGHT = 6-15 cells Anisocytosis SLIGHT = 6-15 cells Specimen Type Puncture Site Bicarbonate Actual ABG pH ABG pCO2 ABG pO2 ABG O2 Sat Calc/Amy ABG O2 Content ABG Base Excess ABG Hematocrit ABG Hemoglobin ABG Oxyhemoglobin ABG Carboxyhemoglobin ABG Methemoglobin ABG Deoxyhemoglobin Edward Test A-a O2 Gradient Sodium 139 Potassium 3.8 Chloride 101 Ionized Calcium Mode of Support Mechanical Rate Inspired O2 Tidal Volume Pressure Support PEEP or CPAP Carbon Dioxide 30 Anion Gap 12 BUN 49 H Creatinine 1.79 H Estimated GFR (MDRD) 45 Glucose 118 H POC Glucose Calcium 8.3 CCU Progress Note: A/P - Problems (1) Acute hypoxemic respiratory failure Current Visit: Yes Status: Acute Code(s): J96.01 - ACUTE RESPIRATORY FAILURE WITH HYPOXIA (2) Acute worsening of stage 3 chronic kidney disease Current Visit: Yes Status: Acute Code(s): N18.3 - CHRONIC KIDNEY DISEASE, STAGE 3 (MODERATE) (3) Severe sepsis with acute organ dysfunction Current Visit: Yes Status: Acute Code(s): A41.9 - SEPSIS, UNSPECIFIED ORGANISM; R65.20 - SEVERE SEPSIS WITHOUT SEPTIC SHOCK - Time Spent with Patient Time: 30 min cc time. 50% of the time was spent in coordination of care (as documented) at patient's floor/unit and/or counseling patient. - Plan Plan: Palliative care speaking with family. They are basically stalling and not making decision for more aggressive care or withdrawal of care. He has been intubated for almost a month, and needs a trach and peg if we are to continue. He is not weanable currently. Prognosis is horrible
[2017-07-04] MEDS: levETIRAcetam In NaCl (Iso-Os) 1,000 MG in Premix Bag 1 BAG IVPB SCH ×2 (10:13)
[2017-07-04] MEDS ORDERED: Morphine 4 MG/ML VIAL SLOW IVP PRN (16:17)
[2017-07-05 04:46] LABS: Anion Gap 16 mmol/L (10-20); BUN (Urea Nitrogen) 59 mg/dL (8.4-25.7); Calc. Creatinine Clearance 47 mL/min (70-130); Calcium 8.7 mg/dL (7.8-10.44); Carbon Dioxide 26 mmol/L (23-31); Chloride 100 mmol/L (98-107); Estimated GFR-MDRD 37; Potassium 4.2 mmol/L (3.5-5.1); Sodium 138 mmol/L (136-145)
[2017-07-05 04:50] LABS: Glucose 45 mg/dL (83-110)
[2017-07-05 05:24] LABS: Anisocytosis SLIGHT = 6-15 cells (100X) (0-5/hpf); Band 2 % (5-11); Eosinophils 1 % (0-10); Hemoglobin 8.7 g/dL (14.0-18.0); Lymphocytes 11 % (21-51); MDiff Complete? YES; Mean Corpuscular HGB CONC 30.6 g/dL (32.0-36.0); Mean Corpuscular Hemoglobin 26.8 pg (27.0-31.0); Mean Corpuscular Volume 87.5 fl (80.0-94.0); Mean Platelet Volume 8.4 fL (7.4-10.4); Metamyelocyte 1 % (0-0); Monocytes 13 % (0-10); Neutrophil 71 % (42-75); Ovalocytes SLIGHT = 2-5 cells (100X) (0-1/hpf); PLT Morphology Comment Appears Adequate; Platelet Count 392 thou/uL (130-400); RBC Distribution Width 19.2 % (11.5-14.5); Reactive Lymphocytes 1 % (0-10); Red Blood Cell (RBC) Count 3.24 mill/uL (4.70-6.10); White Blood Cell (WBC) Count 15.1 thou/uL (4.8-10.8)
--- NOTE | 2017-07-05 06:14 | PRG ---
DATE OF SERVICE: 07/04/2017 SUBJECTIVE: The patient was seen and examined in ICU and intubated. Family discussion pending and m ost likely family is going for withdrawal of care today. OBJECTIVE: GENERAL: This is a elderly male who is intubated. VITAL SIGNS: Temperature 98.7, pulse 92, respiratory rate 24, blood pressure 103/62. HEENT: Intubated. CARDIOVASCULAR: S1, S2 heard. RESPIRATORY: Clear. GASTROINTESTINAL: Abdomen is soft. MUSCULOSKELETAL: 1+ edema. DERMATOLOGIC: No skin rash. NEUROLOGIC: Intubated. LABORATORY DATA: Potassium is 3.8, BUN is 49, creatinine is 1.7. ASSESSMENT AND PLAN: 1. End-stage renal disease on hemodialysis. Family most likely opting for withdrawal of care. 2. Hypertension. 3. Edema. 4. Proteinuria. 5. Diabetic nephropathy. 6. Acute hypoxic respiratory failure. 7. Altered mentation, getting better. Family opted for withdrawal of care and patient is probably getting extubated today. The patient was seen this morning and I will sign off. Please call back with any questions.
--- NOTE | 2017-07-05 09:08 | PDOC.PULPN ---
Progress Note: Subj/Obj - Subjective Date: 07/05/17 Time: 09:07 Subjective: non-communicative - ROS ROS unobtainable: due to mental status - Objective Allergies/Adverse Reactions: Allergies Allergy/AdvReac Type Severity Reaction Status Date / Time cortisone Allergy Unknown Verified 06/06/17 12:08 codeine Allergy Verified 06/06/17 12:08 morphine Allergy Verified 06/06/17 12:08 Penicillins Allergy Verified 06/06/17 12:08 propoxyphene Allergy Verified 06/06/17 12:08 Medications: Current Medications Morphine Sulfate (Morphine) 2 mg SLOW IVP Q10MIN PRN PRN Reason: .COMFORT/AIR HUNGER Sodium Chloride (Flush - Normal Saline) 10 ml IVF PRN PRN PRN Reason: Saline Flush Last Admin: 06/23/17 07:31 Dose: 10 ml Vital Signs: Vital Signs Temp 98.3 F 07/05/17 08:00 Pulse 118 H 07/05/17 08:00 Resp 20 07/05/17 08:00 BP 133/84 07/05/17 08:00 Pulse Ox 99 07/05/17 08:00 Intake & Output 07/04/17 07/05/17 07/05/17 18:59 06:59 18:59 Intake Total 20 Output Total 169 100 Balance -169 -80 Weight 240 lb 3.2 oz Intake: Intake, IV Amount 20 Oral 0 Output: Output, Vazquez 169 100 Other: Voiding Method Indwelling Catheter Indwelling Catheter # Bowel Movement Diapers 1 3 Progress Note: Exam - Physical Exam Deviation from normal: mild resp distress HEENT: PERRLA Neck: no JVD Cardiovascular: RRR Respiratory: decreased breath sounds Gastrointestinal: soft Musculoskeletal: edema present - Labs Result Diagrams: 07/05/17 03:47 07/05/17 03:47 Lab results: Laboratory Results - last 24 hr 07/05/17 07/05/17 03:47 03:47 WBC 15.1 H RBC 3.24 L Hgb 8.7 L Hct 28.4 L MCV 87.5 MCH 26.8 L MCHC 30.6 L RDW 19.2 H Plt Count 392 MPV 8.4 Neutrophils % (Manual) 71 Band Neuts % (Manual) 2 L Lymphocytes % (Manual) 11 L Reactive Lymphs % 1 Monocytes % (Manual) 13 H Eosinophils % (Manual) 1 Metamyelocytes % (Man) 1 H Plt Morphology Comment Appears Adequate Anisocytosis SLIGHT = 6-15 cells Ovalocytes SLIGHT = 2-5 cells Sodium 138 Potassium 4.2 Chloride 100 Carbon Dioxide 26 Anion Gap 16 BUN 59 H Creatinine 2.14 H Estimated GFR (MDRD) 37 Glucose 45 L* Calcium 8.7 Progress Note: A/P - Problems (1) Acute hypoxemic respiratory failure Current Visit: Yes Status: Acute Code(s): J96.01 - ACUTE RESPIRATORY FAILURE WITH HYPOXIA (2) Acute worsening of stage 3 chronic kidney disease Current Visit: Yes Status: Acute Code(s): N18.3 - CHRONIC KIDNEY DISEASE, STAGE 3 (MODERATE) (3) Severe sepsis with acute organ dysfunction Current Visit: Yes Status: Acute Code(s): A41.9 - SEPSIS, UNSPECIFIED ORGANISM; R65.20 - SEVERE SEPSIS WITHOUT SEPTIC SHOCK - Time Spent with Patient Time: 50% of the time was spent in coordination of care (as documented) at patient's floor/unit and/or counseling patient. - Plan Plan: hopeless situation dc dialysis dc labs palliative care no further recs. Pulm will sign off
--- NOTE | 2017-07-05 09:21 | PDOC.PN ---
- Subjective Encounter Start Date: 07/05/17 Encounter Start Time: 10:30 -: non-verbal Subjective: Jennifer Garcia breathing. No other changes since extubated. - Objective Resuscitation Status: Resuscitation Status DNR:Do Not Resuscitate MAR Reviewed: Yes Vital Signs & Weight: Vital Signs (12 hours) Temp Pulse Resp BP Pulse Ox 07/05/17 08:00 98.3 F 118 H 20 133/84 99 07/05/17 05:28 98.1 F 117 H 22 H 127/70 95 07/05/17 00:59 98.9 F 100 18 121/76 93 L Weight Admit Weight 260 lb 4.8 oz Weight 240 lb 3.2 oz Most Recent Monitor Data Heart Rate from ECG 109 NIBP 142/83 NIBP BP-Mean 95 Respiration from ECG 24 SpO2 89 I&O: 07/04/17 07/05/17 07/06/17 06:59 06:59 06:59 Intake Total 1779 20 Output Total 251 269 Balance 1528 -249 Result Diagrams: 07/05/17 03:47 07/05/17 03:47 Phys Exam - Physical Examination HEENT: moist MMs Respiratory: clear to auscultation bilateral Cardiovascular: RRR Gastrointestinal: no distention, positive bowel sounds Musculoskeletal: no edema Neurological: non-focal no responses/movement Deviation from normal: unresponsive Dx/Plan (1) Acute hypoxemic respiratory failure Code(s): J96.01 - ACUTE RESPIRATORY FAILURE WITH HYPOXIA Status: Acute Comment: Compassionate extubation yesterday, palliative care (2) Acute on chronic systolic (congestive) heart failure Code(s): I50.23 - ACUTE ON CHRONIC SYSTOLIC (CONGESTIVE) HEART FAILURE Status : Acute (3) Clostridium difficile colitis Status: Acute Comment: on oral vancomycin (4) ESRD (end stage renal disease) on dialysis Code(s): N18.6 - END STAGE RENAL DISEASE; Z99.2 - DEPENDENCE ON RENAL DIALYSIS Status: Acute Comment: d/c hemodialysis, palliative care only (5) Seizure disorder as sequela of cerebrovascular accident Code(s): I69.398 - OTHER SEQUELAE OF CEREBRAL INFARCTION; G40.909 - EPILEPSY, UNSP, NOT INTRACTABLE, WITHOUT STATUS EPILEPTICUS Status: Acute Comment: On keppra - Plan cont current plan of care Palliative care -: Fentanyl prn distress/pain. * . - Discharge Day Encounter end time: 11:00
[2017-07-05] MEDS: Fentanyl 100 MCG/2 ML VIAL SLOW IVP PRN ×4 (11:00→16:25)
[2017-07-05 14:04] VITALS: BMI 35.4
[2017-07-05] MEDS: Lorazepam 2 MG/ML VIAL SLOW IVP PRN (17:46)
[2017-07-06] MEDS: Lorazepam 2 MG/ML VIAL SLOW IVP PRN ×2 (04:53→11:36)
[2017-07-06] MEDS: Fentanyl 100 MCG/2 ML VIAL SLOW IVP PRN ×3 (09:26→23:27)
[2017-07-07] MEDS: Fentanyl 100 MCG/2 ML VIAL SLOW IVP PRN (03:44)
[2017-07-07] MEDS: Lorazepam 2 MG/ML VIAL SLOW IVP PRN (03:45)
[2017-07-07 21:35] VITALS: BP 91/55; TEMP 97.5
--- NOTE | 2017-07-10 11:35 | EKG ---
Test Reason : SIRS Blood Pressure : / mmHG Vent. Rate : 119 BPM Atrial Rate : 144 BPM P-R Int : 000 ms QRS Dur : 106 ms QT Int : 394 ms P-R-T Axes : 000 030 180 degrees QTc Int : 554 ms Atrial fibrillation with rapid ventricular response with premature ventricular or aberrantly conducte d complexes Low voltage QRS Cannot rule out Inferior infarct , age undetermined Abnormal ECG Confirmed by SHIRLEY PRIETO, KRANTHI Nava ([id number]), communications editor YULIANA ORELLANA ([id number]) on 07/10/2017 11:34:54 AM Referred By: Confirmed By:KRANTHI WATSON MD
--- NOTE | 2017-07-17 16:52 | DS ---
ADMISSION DIAGNOSES: 1. Hypothermia. 2. Atrial fibrillation with rapid ventricular response. 3. Cardiomyopathy with severe peripheral edema. 4. Superficial skin wounds, possibly arellano versus edema ulcers. CAUSE OF : Acute intracerebral hemorrhage with infarction and seizures. SUMMARY OF HOSPITAL COURSE: This is a 72-year-old man, who came in with a history of cardiomyopathy, edema, and shortness of breath along with some lesions on his legs. He was diagnosed with exacerbat ion of CHF and atrial fibrillation with rapid ventricular response. The patient was treated and had a good improvement in his heart rate and his volume status. Then while patient was in the hospital, he did develop sudden onset of stroke-like symptoms along with seizures. A CT of the brain did show intracranial hemorrhage, subarachnoid versus subdural. Neurology and Neurosurgery were consulted. I t was determined he did not need surgery, but his Lovenox that he had been on for his atrial fibrilla tion was reversed. The patient had difficult to control seizures and was unable to protect his airwa y and so he was intubated. He remained on the ventilator without improvement over the next 23 days. In spite of aggressive intervention, he did not improve at all. At that point, his family moved him over to comfort care measures. He was extubated, and over the next couple days, he did eventually e xpire. DATE OF : 07/08/2017 TIME OF : 04:25 in the morning. Patient was discharged in the morning pending family's choice on a service and no autopsy was requested.
== END 2017-07-08 04:25 | disposition expired | DRG 291 ==
LOC: ERS 12:25 → IMCU/EMU 16:23 → 2NO 06-12 18:23 → CCU 06-13 16:38 → T4-B 07-04 12:20
PROVIDERS: ADMIT Internal Medicine; ATTEND Internal Medicine
PROC: 02HV33Z Insertion of Infusion Device into Superior Vena Cava, Percutaneous Approach (ICD-10-PCS; 2017-06-05)
PROC: 0BH17EZ Insertion of Endotracheal Airway into Trachea, Via Natural or Artificial Opening (ICD-10-PCS; principal; 2017-06-13)
PROC: 5A1955Z Respiratory Ventilation, Greater than 96 Consecutive Hours (ICD-10-PCS; 2017-06-13)
PROC: 30233K1 Transfusion of Nonautologous Frozen Plasma into Peripheral Vein, Percutaneous Approach (ICD-10-PCS; 2017-06-13)
PROC: 0BJ08ZZ Inspection of Tracheobronchial Tree, Via Natural or Artificial Opening Endoscopic (ICD-10-PCS; 2017-06-13)
PROC: 0BH17EZ Insertion of Endotracheal Airway into Trachea, Via Natural or Artificial Opening (ICD-10-PCS; 2017-06-16)
PROC: 5A1D70Z Performance of Urinary Filtration, Intermittent, Less than 6 Hours Per Day (ICD-10-PCS; 2017-06-25)
PROC: 06HY33Z Insertion of Infusion Device into Lower Vein, Percutaneous Approach (ICD-10-PCS; 2017-06-25)
PROC: 0JH63XZ Insertion of Tunneled Vascular Access Device into Chest Subcutaneous Tissue and Fascia, Percutaneous Approach (ICD-10-PCS; 2017-06-29)
PROC: 02HV33Z Insertion of Infusion Device into Superior Vena Cava, Percutaneous Approach (ICD-10-PCS; 2017-06-29)
PROC: 05HY33Z Insertion of Infusion Device into Upper Vein, Percutaneous Approach (ICD-10-PCS; 2017-06-29)
DX: I13.2 Hypertensive heart and chronic kidney disease with heart failure and with stage 5 chronic kidney disease, or end stage renal disease (principal); A41.9 Sepsis, unspecified organism; J96.01 Acute respiratory failure with hypoxia; N17.0 Acute kidney failure with tubular necrosis; R65.20 Severe sepsis without septic shock; J95.851 Ventilator associated pneumonia; K92.2 Gastrointestinal hemorrhage, unspecified; E66.01 Morbid (severe) obesity due to excess calories; N18.6 End stage renal disease; I62.01 Nontraumatic acute subdural hemorrhage; A04.72 Enterocolitis due to Clostridium difficile, not specified as recurrent; I50.22 Chronic systolic (congestive) heart failure; E87.1 Hypo-osmolality and hyponatremia; E87.2 Acidosis; E87.3 Alkalosis; L97.919 Non-pressure chronic ulcer of unspecified part of right lower leg with unspecified severity; L97.929 Non-pressure chronic ulcer of unspecified part of left lower leg with unspecified severity; T68.XXXA Hypothermia, initial encounter; I48.2 Chronic atrial fibrillation; Z51.5 Encounter for palliative care; Z66 Do not resuscitate; E88.09 Other disorders of plasma-protein metabolism, not elsewhere classified; E11.21 Type 2 diabetes mellitus with diabetic nephropathy; E11.65 Type 2 diabetes mellitus with hyperglycemia; E87.5 Hyperkalemia; G40.901 Epilepsy, unspecified, not intractable, with status epilepticus; Z87.891 Personal history of nicotine dependence; E11.22 Type 2 diabetes mellitus with diabetic chronic kidney disease; Z95.810 Presence of automatic (implantable) cardiac defibrillator; D64.9 Anemia, unspecified; E78.5 Hyperlipidemia, unspecified; Y84.8 Other medical procedures as the cause of abnormal reaction of the patient, or of later complication, without mention of misadventure at the time of the procedure; E11.649 Type 2 diabetes mellitus with hypoglycemia without coma; E87.6 Hypokalemia; I25.5 Ischemic cardiomyopathy; G83.84 Todd's paralysis (postepileptic); I73.9 Peripheral vascular disease, unspecified; Z85.46 Personal history of malignant neoplasm of prostate; T50.2X5A Adverse effect of carbonic-anhydrase inhibitors, benzothiadiazides and other diuretics, initial encounter; B95.61 Methicillin susceptible Staphylococcus aureus infection as the cause of diseases classified elsewhere; Z68.38 Body mass index [BMI] 38.0-38.9, adult; I83.009 Varicose veins of unspecified lower extremity with ulcer of unspecified site
CPT/HCPCS: 36415; 36416; 36430; 36556; 51702; 70450; 71010; 76770; 80048; 80053; 80076; 80162; 80202; 81001; 81003; 81015; 82550; 82553; 82565; 82570; 82805; 83605; 83630; 83735; 83880; 84100; 84156; 84443; 84484; 85007; 85014; 85018; 85025; 85027; 85049; 85520; 85610; 85730; 86038; 86704; 86706; 86803; 86850; 86900; 86901; 87040; 87070; 87077; 87186; 87205; 87324; 87340; 87449; 87493; 90935; 93005; 93010; 93306; 93798; 94002; 94003; 95816; 95819; 96361; 96365; 96375; 99292; A4216; C1751; C1752; C1769; G0257; G8978-GP-CM; G8979-GP-CJ; G8987-GO-CL; G8988-GO-CJ; J0692; J0696; J1160; J1642; J1644; J1650; J1940; J1953; J1956; J2001; J2060; J2704; J2720; J2920; J3010; J3370; J3475; J3480; J3490; J7050; J7070; P9048; P9059; S0028